=== PATIENT | female | born 1975 | race Caucasian/White ===

== ENCOUNTER 2019-09-29 00:49 | Inpatient (IN) | payer OTHER, SELFPAY ==
[2019-09-29] VITALS (49 sets, daily range): BP systolic 74–128; BP diastolic 56–98; PULSE 82–123; RESP 14–26; TEMP 36.1–37.2; O2SAT 93–100; BMI 21.0
--- NOTE | ~2019-09-29 | XR_ITS ---
EXAMINATION: XR chest ET placement DATE: 09/29/2019 05:59 INDICATION: Endotracheal tube placement. Central line placement TECHNIQUE: frontal view of the chest was obtained. COMPARISON: Chest radiograph dated 11/03/2012 FINDINGS: Endotracheal tube tip at the kota. Per discussion with Dr. Garcia this has already been pulled chris k. Nasogastric tube proximal side port in the proximal body of the stomach and with distal tip collim ated off the study. Right internal jugular central venous catheter with distal tip near the superior cavoatrial junction. Lungs are clear. No focal airspace opacity, pulmonary edema, pleural effusion or pneumothorax. The ca rdiomediastinal silhouette is normal. Visualized bones and soft tissues are unremarkable. IMPRESSION: 1. No acute cardiopulmonary disease. 2. Endotracheal tube at the kota which has already been repositioned. Reviewed, dictated and finalized at location A.
--- NOTE | ~2019-09-29 | CT_ITS ---
EXAMINATION: CT brain wo con DATE: 09/29/2019 09:40 INDICATION: Altered mental status. Overdose. TECHNIQUE: Computed tomography (CT) of the head was performed without intravenous contrast. The mA wa s adjusted according to patient size. Iterative reconstruction technique was employed. Exam dose: 60 5.33 mGy-cm total exam DLP. COMPARISON: None FINDINGS: No intracranial mass lesion or hemorrhage or cerebrovascular accident. Normal cabral-white ma tter differentiation. Normal ventricular size. No subdural or epidural hematoma. No fracture or bone destruction of the cranial vault. IMPRESSION: Negative Reviewed, dictated and finalized at Location A. Reviewed, dictated and finalized at location A. IMPRESSION: Negative
--- NOTE | 2019-09-29 00:54 | ECG_ITS ---
Measurements Intervals [place] Rate: 100 P: AL: 0 QRS: 18 QRSD: 99 T: 69 QT: 352 QTc: 455 Interpretive Statements SINUS TACHYCARDIA INCOMPLETE RIGHT BUNDLE BRANCH BLOCK BORDERLINE ECG Electronically Signed On 09-29-2019 7:52:10 CDT by Jimmy Garcia D.O.
--- NOTE | 2019-09-29 02:24 | PC.NURSE ---
poison control contacted at this time, stated that they were aware of patient and would fax information over.
[2019-09-29 02:50] LABS: Basophils Percent Auto 0.5 % (0.2-1.2); Eosinophils Absolute Auto 0.1 K/mm3 (0-0.3); Eosinophils Percent Auto 0.9 % (0-4.4); Hematocrit 36.6 % (37.0-47.0); Hemoglobin 12.8 g/dL (12.0-15.0); Immature Granulocyte Absolute 0.02 K/mm3 (0.00-0.031); Immature Granulocyte Percent A 0.2 % (0-0.5); Lymphocytes Absolute Auto 2.75 K/mm3 (0.9-3.2); Lymphocytes Percent Auto 33.8 % (18.3-44.2); Mean Corpuscular Hemoglobin 32.7 pg (26-34); Mean Corpuscular Volume 93.6 fl (80-100); Mean Platelet Volume 8.8 fl (7.4-10.4); Monocytes Absolute Auto 0.4 K/mm3 (0.1-0.6); Monocytes Percent Auto 5.4 % (2.6-8.5); Neutrophils Absolute Auto 4.8 K/mm3 (1.3-6.7); Neutrophils Percent Auto 59.2 % (45.5-73.1); Platelet Count Result 371 k/mm3 (150-375); Red Blood Count 3.91 M/mm3 (4.2-5.4); White Blood Count 8.1 K/mm3 (4.5-10.0)
[2019-09-29] MEDS: SODIUM CHLORIDE 0.9% IV 1,000 ML 999 ML IV CONT ×2 (03:25→09:58)
--- NOTE | 2019-09-29 03:31 | PC.NURSE ---
pt very drowsy at this time edp notified.
[2019-09-29 03:40] LABS: Add Urine Microscopic? YES; Appearance Urine Clear (Clear); Bilirubin Urine Negative (Negative); Blood Urine 1+ (Negative); Color Urine Yellow (Yellow); Glucose Urine UA Negative (Negative); Ketones Urine Negative (Negative); Leukocyte Esterase Ur Negative LEU/UL (Negative); Mucus Urine Rare /lpf; Nitrate Urine Negative (Negative); Protein Urine Negative (Negative); RBC Urine 0-2 /hpf (0-2); Squamous Epithelial Cell Urine Occasional /hpf (Few); Urobilinogen Urine Negative mg/dL (<2.0); WBC Urine 0-3 /hpf
--- NOTE | 2019-09-29 04:38 | PC.NURSE ---
pt extremely lethargic at this time, slow to respond. pt bp 74/58.
--- NOTE | 2019-09-29 04:39 | PC.NURSE ---
pt responsive to painful stimuli.
[2019-09-29 04:40] LABS: Amphetamine Screen Urine Negative (Negative); Barbiturate Screen Urine Negative (Negative); Benzodiazepines Screen Urine Negative (Negative); Cannabinoid Screen Urine Negative (Negative); Cocaine Screen Urine Negative (Negative); Methadone Screen Urine Negative (Negative); Opiate Screen Urine Negative (Negative); Phencyclidine Screen Urine Negative (Negative)
[2019-09-29 04:47] LABS: Ethanol 336 mg/dL (<10)
[2019-09-29 04:48] LABS: Acetaminophen < 10 ug/mL (10-30); Salicylate < 1.0 mg/dL (2-20)
--- NOTE | 2019-09-29 04:48 | PC.NURSE ---
pt having seizure at this time, edp present. 1000mg of keppra ordered at this time.
[2019-09-29 04:49] LABS: Alanine Aminotransferase 23 U/L (4-35); Albumin Level 4.4 g/dL (3.5-5.1); Alkaline Phosphatase 59 U/L (38-126); Aspartate Amino Transferase 36 U/L (14-36); Bilirubin,Total 0.2 mg/dL (0.2-1.3); Blood Urea Nitrogen 5 mg/dL (7-17); Calcium 8.6 mg/dL (8.4-10.2); Carbon Dioxide 27 mmol/L (22-30); Chloride 108 mmol/L (98-107); Estimated CRCL calculation 90 ml/min; Estimated Glomerular Filt Rate > 60; Glucose 109 mg/dL (65-105); Potassium 3.7 mmol/L (3.4-5.0); Sodium 143 mmol/L (137-145); Thyroid Stimulating Hormone 0.653 uIU/mL (0.465-4.680)
--- NOTE | 2019-09-29 05:00 | PC.NURSE ---
PT BECOMING HYPOXIC IN ROOM WHILE SEIZING. EDP TO INTUBATE.
--- NOTE | 2019-09-29 05:03 | PC.NURSE ---
EDP IN ROOM TO INTUBATE PATIENT.
--- NOTE | 2019-09-29 05:05 | PC.NURSE ---
PT GIVEN 50MG OF ROCURONIUM AT THIS TIME PER EDP MARIANA'S ORDERS.
--- NOTE | 2019-09-29 05:05 | PC.NURSE ---
PT INTUBATED WITH 7.5 ET TUBE 27 AT THE TEETH.
[2019-09-29] MEDS: levETIRAcetam 1000MG/NACL100ML 1,000 MG/100 ML BAG 400 MG IVPB (05:15)
[2019-09-29 05:22] LABS: Base Excess ABG 4.5 mEq/l (+/-2.0); Oxygen Saturation ABG 99.9 % (95.0-100.0); Total Hemoglobin 11.3 g/dL (12.0-18.0)
[2019-09-29 05:23] LABS: Carboxyhemoglobin 2.2 % THb (0-2.0); Oxygen Content ABG 16.9 %vol (16.0-22.0)
[2019-09-29 05:24] LABS: Methemoglobin ABG 0.4 %THb (0-1.5)
[2019-09-29 05:26] LABS: Device NON-REBREATHER MASK; Fractional Inspired Oxygen 100 %; Modified Allen's Test Unable to perform; PO2 FiO2 Ratio Arterial Blood 5.51 %; Site Drawn RIGHT RADIAL
--- NOTE | 2019-09-29 05:26 | ECG_ITS ---
Measurements Intervals [place] Rate: 93 P: 77 TN: 165 QRS: 15 QRSD: 114 T: 72 QT: 408 QTc: 508 Interpretive Statements SINUS RHYTHM INCOMPLETE RIGHT BUNDLE BRANCH BLOCK DELAYED PRECORDIAL R/S TRANSITION BORDERLINE ECG Electronically Signed On 09-29-2019 7:59:50 CDT by Jimmy Garcia D.O.
[2019-09-29] MEDS: NOREPINEPHRINE 8 MG/D5W 250 ML 8 MG/250 ML BAG 9.4 MG IV CONT (05:30)
--- NOTE | 2019-09-29 05:38 | PC.NURSE ---
PT STARTED ON PROPOFOL @ 5MCG/KG/MIN PER EDP MARIANA ORDERS.
--- NOTE | 2019-09-29 05:53 | PM.IMHP ---
H&P: HPI History of Present Illness Chief complaint: wellbutrin overdose/ativan overdose/alcohol intoxi Narrative: This is a 44 year old female who presented to the hospital tonight after intentionally overdosing on approximately 6 grams of wellbutrin and 15 mg of Ativan according to ER provider. The patient had been fighting with her earlier this evening and did drink alcohol before intentionally overdosing. Apparently she verbalized to her that she wanted to end her life. In the ER tonight the patient has become obtunded and poorly responsive. She was found to be hypotensive and was given a fluid bolus. She began to exhibit seizure like activity and was treated with IV Keppra. The patient's respiratory function deteriorated and she was emergently intubated in the ER. A central line was placed in the ER as the patient continued to be hypotensive. She was started on IV Levophed for her hypotension. Poison control has been consulted by ER provider. Landscape Foreman has been consulted by ER provider. Review of Systems Review of Systems: ROS unobtainable: Yes unobtainable due to medical condition and unobtainable due to mental status [facility] Family History Family History Other Family history of pancreatic cancer Social History Social History Smoking status: Current every day smoker Smoking end date: 03/15/11 Alcohol intake: current Drinks per week: 6 Substance use: unknown Gender identity (if verbalized by the patient): Female Spiritual care concerns: No Comments Past medical/surgical/family/social history is not obtainable from the patient due to her comatose state. Meds Home Medications and Allergies Home Medications Medication Instructions Recorded Confirmed Type albuterol sulfate 2 puff INHALATION Q6H PRN 09/29/19 09/29/19 History bupropion HCl 300 mg PO DAILY 09/29/19 09/29/19 History lorazepam 0.5 mg PO Q8H PRN 09/29/19 09/29/19 History nystatin 5 ml PO QID 09/29/19 09/29/19 History vilazodone [Viibryd] 40 mg PO DAILY 09/29/19 09/29/19 History Allergies Allergy/AdvReac Type Severity Reaction Status Date / Time No Known Allergies Allergy Mild Verified 10/17/07 07:46 Vital Signs Vital Signs - 24 hr 09/29/19 00:49 09/29/19 03:04 09/29/19 03:05 Temperature 36.8 C Pulse Rate 113 H 113 H Respiratory Rate 15 18 19 Blood Pressure 123/98 H 111/83 Pulse Oximetry 100 100 09/29/19 04:01 09/29/19 04:40 09/29/19 05:14 Temperature Pulse Rate 115 H 91 110 H Respiratory Rate 24 H 16 15 Blood Pressure 97/68 L 74/58 L 91/68 L Pulse Oximetry 97 94 97 Exam Const: General: other (Obtunded, Comatose, Unresponsive to pain+); No alert or awake Orientation/consciousness: patient obtunded HENMT: Head: normal to inspection General nose exam: Normal external nose present Face and sinus: normal facial exam Mouth: Yes Normal oral and palatal mucosa present and Yes oropharynx normal Eyes: Pupils: Other pupil findings (pupils are sluggishly reactive+ ) Neck: Neck: supple and no JVD Thyroid: thyroid normal Lymphatic: lymphadenopathy not noted Resp: Effort & Inspection: other (Slow, shallow breathing+ ) Auscultation: wheezes lower bilaterally Cardio: Rate: regular rate Rhythm: regular rhythm Heart sounds: no murmurs GI: Inspection: normal to inspection Auscultation: normal bowel sounds Skin: General skin exam: normal color and no rashes or lesions noted Neuro: General: patient obtunded and other (Unresponsive to pain. ) Extrem: General: normal to inspection and no edema H&P: Results Labs Labs: Short CBC 09/29/19 Range/Units 01:00 WBC 8.1 (4.5-10.0) K/mm3 Hgb 12.8 (12.0-15.0) g/dL Hct 36.6 L (37.0-47.0) % Plt Count 371 (150-375) k/mm3 [facility] 09/29/19 01:00 Sodium 143 Potassium 3.7 Chloride 108 H Carbon Dioxide 27 BUN 5 L
--- NOTE | 2019-09-29 05:59 | PC.NURSE ---
levophed started at 10mcg/min er edp orders.
--- NOTE | 2019-09-29 06:10 | PC.NURSE ---
pt family member called requesting information, told pts family i could not give any information about patient, she then stated fuck you and continued repeating it.
[2019-09-29] MEDS: PROPOFOL IV EMULSION 100 ML 5 MG (06:26)
--- NOTE | 2019-09-29 08:33 | ADMGEN ---
This patient, Micaela Worthy, was admitted to Intensive Care Unit-5. Patient/family oriented to hospital policies and general routines including ID bracelet, bed and alarms, visiting hours, pain management, procedures, bathroom and other care routines, personal items, smoking policy, room service/diet, and visiting hours. Valuables list has been completed. Information on how to activate the Rapid Response Team has been discussed. Patient/Family are encouraged to report perceived risks to care and to ask questions if they do not understand what they are told or what they should do.
[2019-09-29 08:59] LABS: Base Excess ABG -5.2 mEq/l (+/-2.0); HCO3 ABG 21.2 mEq/l (22.0-26.0); Oxygen Saturation ABG 99.5 % (95.0-100.0); PCO2 ABG 44.7 mmHg (35.0-45.0); PO2 ABG 253.9 mmHg (80.0-100.0); Total Hemoglobin 13.3 g/dL (12.0-18.0); pH ABG 7.294 (7.350-7.450)
[2019-09-29 09:00] LABS: Alveolar/Arterial O2 Gradient 124.7 mmHg; Arterial Blood Gas PEEP 5 cmH2O; Arterial Blood Gas Tidal Volume 400 ml; Arterial Blood Gas Vent Mode CMV; Arterial Blood Gas Ventilator rate 18 /MIN; Device VENTILATOR; Fractional Inspired Oxygen 60 %; Modified Allen's Test Pass; Oxygen Content ABG 18.9 %vol (16.0-22.0); Oxyhemoglobin 97.7 % THb (90.0-100.0); PO2 FiO2 Ratio Arterial Blood 4.23 %; Site Drawn LEFT RADIAL
--- NOTE | 2019-09-29 09:21 | WPDCNINT ---
Assessment and Plan Assessment and plan (1) Poisoning by bupropion: Code(s): T43.291A - Poisoning by other antidepressants, accidental (unintentional), initial encounter Status: Acute Assessment and Plan: Leading to seizures hypotension and and myoclonic jerking Dilated fixed pupils could be a manifestation of severe bupropion toxicity Check CT head Serial EKGs IV fluids with bicarb Check EEG and head CT Spoke to Dr. Mosher at [facility] ICU for transfer for continuous EEG monitoring and MRI while on ventilator. The have accepted the patient and neurologist is agreeable to consult and initiate continues EEG. Accepting physician is Dr. Zavala Await bed at this point (2) Alcohol intoxication: Qualifiers: Complication of substance-induced condition: with unspecified complication Qualified Code(s): F10.929 - Alcohol use, unspecified with intoxication, unspecified Code(s): F10.929 - Alcohol use, unspecified with intoxication, unspecified Status: Acute Assessment and Plan: IV fluid bolus and infusion Thiamine and folic acid (3) Seizure: Code(s): R56.9 - Unspecified convulsions Status: Acute Assessment and Plan: Secondary to Wellbutrin overdose Patient on propofol sedation. I will add Versed infusion EEG head CT ordered (4) Acute respiratory failure: Qualifiers: Respiratory failure complication: unspecified whether with hypoxia or hypercapnia Qualified Code(s): J96.00 - Acute respiratory failure, unspecified whether with hypoxia or hypercapnia Code(s): J96.00 - Acute respiratory failure, unspecified whether with hypoxia or hypercapnia Status: Acute Assessment and Plan: Chest x-ray and ABG reviewed Increased respiratory rate to 22 (5) Hypotension: Code(s): I95.9 - Hypotension, unspecified Status: Acute Assessment and Plan: Likely secondary to drug overdose and seizures Patient received 3 L saline bolus Continue IV fluid with bicarb Levophed for hemodynamic support Check lactic acid level Additional Plan DVT prophylaxis -Lovenox once head CT is negative Stress ulcer prophylaxis -Protonix Nutrition - NPO Code Status - Full Code Total Critical Care Time - 45 minutes Due to a high probability of clinically significant, life threatening deterioration, the patient required my highest level of preparedness to intervene emergently and I personally spent this critical care time directly and personally managing the patient. This critical care time included obtaining a history; examining the patient; pulse oximetry; ordering and review of studies; arranging urgent treatment with development of a management plan; evaluation of patient's response to treatment; frequent reassessment; and discussions with other providers. It was exclusive of separately billable procedures and treating other patients and teaching time. Please see Assessment and Plan section and the rest of the note for further information on patient assessment and treatment [facility] Consult Note Consult date: 09/29/19 Time Seen: 09:00 HPI: Micaela Worthy is a 44 year old female with a known past medical history presented to ER last night with chief complaint of intentionally taking 6 g of Wellbutrin, 15 mg of Ativan after drinking alcohol in order to commit suicide. Initially patient was drowsy and response. Labwork was unremarkable. Patient was going to be admitted for monitoring but while in the ER patient's mental status deteriorated and she had a seizure. She was also hypertensive. She was intubated, IV fluid bolus was given, patient was started on Levophed and a central line was placed. Patient now admitted to ICU for further evaluation and management. History obtained from chart and Physician sign out. Pt intubated and sedated and unable to provide any other history. At this time patient is intubated and on propofol and Levophed. Her
[2019-09-29 09:47] LABS: Basophils Percent Auto 0.3 % (0.2-1.2); Eosinophils Percent Auto 0.1 % (0-4.4); Hemoglobin 12.2 g/dL (12.0-15.0); Immature Granulocyte Absolute 0.04 K/mm3 (0.00-0.031); Immature Granulocyte Percent A 0.4 % (0-0.5); Lymphocytes Absolute Auto 0.87 K/mm3 (0.9-3.2); Lymphocytes Percent Auto 8.9 % (18.3-44.2); Mean Corpuscular HGB Conc 33.9 g/dl (32-36); Mean Corpuscular Hemoglobin 32.7 pg (26-34); Mean Corpuscular Volume 96.5 fl (80-100); Monocytes Absolute Auto 0.6 K/mm3 (0.1-0.6); Monocytes Percent Auto 6.2 % (2.6-8.5); Neutrophils Absolute Auto 8.2 K/mm3 (1.3-6.7); Neutrophils Percent Auto 84.1 % (45.5-73.1); Platelet Count Result 382 k/mm3 (150-375); Red Blood Count 3.73 M/mm3 (4.2-5.4); Red Cell Distribution Width 13.3 % (11.5-14.5); White Blood Count 9.8 K/mm3 (4.5-10.0)
[2019-09-29 09:55] LABS: Lactic Acid 2.2 mmol/L (0.7-2.1)
[2019-09-29 09:56] LABS: Alanine Aminotransferase 27 U/L (4-35); Albumin Level 3.9 g/dL (3.5-5.1); Alkaline Phosphatase 56 U/L (38-126); Aspartate Amino Transferase 48 U/L (14-36); Bilirubin,Total 0.1 mg/dL (0.2-1.3); Blood Urea Nitrogen 4 mg/dL (7-17); Calcium 6.6 mg/dL (8.4-10.2); Carbon Dioxide 24 mmol/L (22-30); Chloride 109 mmol/L (98-107); Estimated CRCL calculation 106 ml/min; Estimated Glomerular Filt Rate > 60; Glucose 129 mg/dL (65-105); Magnesium 1.6 mg/dL (1.6-2.3); Potassium 3.7 mmol/L (3.4-5.0); Sodium 141 mmol/L (137-145)
[2019-09-29] MEDS: levETIRAcetam 500MG/NACL 100ML 500 MG/100 ML BAG 400 MG IVPB ×2 (09:57→20:09)
--- NOTE | 2019-09-29 10:00 | ECG_ITS ---
Measurements Intervals [place] Rate: 114 P: 84 AR: 159 QRS: 25 QRSD: 112 T: 70 QT: 353 QTc: 487 Interpretive Statements SINUS TACHYCARDIA INCOMPLETE RIGHT BUNDLE BRANCH BLOCK BASELINE ARTIFACT- V1-V2 ABNORMAL ECG Electronically Signed On 09-29-2019 11:11:33 CDT by Jimmy Garcia D.O.
[2019-09-29] MEDS: THIAMINE HCL 200 MG/2 ML VIAL 100 MG IV PUSH (10:02)
[2019-09-29] MEDS: ENOXAPARIN 40 MG/0.4 ML SYRINGE SUB-Q (10:03)
[2019-09-29] MEDS: PANTOPRAZOLE SODIUM IV 40 MG VIAL IV PUSH (10:03)
[2019-09-29] MEDS: SODIUM BICARBONATE 8.4% 150 MEQ in DEXTROSE 5% 1,000 ML 950 ML 100 MEQ IV CONT ×2 (10:07→21:29)
[2019-09-29] MEDS: MAGNESIUM SULF 2 GM/WATER 50ML 2 GM/50 ML BAG IVPB (10:40)
[2019-09-29 11:00] LABS: Glucose Point of Care 135 (65-105)
[2019-09-29] MEDS: POTASSIUM CHLORIDE 20 MEQ PACKET (FOR LIQUID) 40 MEQ PO (11:07)
--- NOTE | 2019-09-29 12:03 | PM.EVENT ---
Event Note Event Note Event Note: Spoke to patient's roxanne Worthy by phone. I updated him with patient's current status, events since arrival to ED, seizures hypertension and myoclonic jerking from Wellbutrin overdose. He is agreeable to transfer to OSH/[facility] for continuous EEG monitoring. He told me that patient is on antidepressant medications and has been drinking heavily for last 1 month. She has been drinking daily but mostly drinks beer and wine but lately has been drinking vodka. Last night she started drinking whiskey which was concerning to him. He stated that he kept on asking her if she took any other pills but she denied. He discovered that pills from her Wellbutrin and Ativan bottle were missing which made him call poison control and then eventually bring patient to ER. He told me that patient smokes daily and also has asthma.
--- NOTE | 2019-09-29 12:05 | PC.NURSE ---
Spoke to poison control at 1200, told all labs including ABG, mag, potassium, bicarb. Told them patient got 2 mag rider, 40 of potassium, and on a bicarb drip. Told poison control the QT and QRS on most recent EKG I obtained, was told to watch for torsades. Told poison control that patient will be transferred to [facility] for continuous EEG monitoring.
[2019-09-29] MEDS: PROPOFOL IV EMULSION 100 ML 10 MG IV CONT ×2 (12:28→23:23)
[2019-09-29] MEDS: FOLIC ACID 1 MG/0.2 ML INJ IV PUSH (13:07)
[2019-09-29 13:38] LABS: Glucose Point of Care 158 (65-105)
--- NOTE | 2019-09-29 14:00 | ECG_ITS ---
Measurements Intervals [place] Rate: 96 P: 82 AL: 177 QRS: 8 QRSD: 117 T: 69 QT: 429 QTc: 545 Interpretive Statements SINUS RHYTHM POSSIBLE LEFT ATRIAL ENLARGEMENT INCOMPLETE RIGHT BUNDLE BRANCH BLOCK PROLONGED QT INTERVAL ABNORMAL ECG Electronically Signed On 09-30-2019 7:43:33 CDT by Jimmy Garcia D.O.
[2019-09-29 14:35] LABS: SARS-CoV-2 RNA PCR Negative
--- NOTE | 2019-09-29 15:47 | PC.NURSE ---
[facility] access center updated with the patient's COVID results.
--- NOTE | 2019-09-29 16:50 | WPDNEURCNPN ---
Assessment and Plan Assessment and plan (1) Poisoning by bupropion: Code(s): T43.291A - Poisoning by other antidepressants, accidental (unintentional), initial encounter Status: Acute (2) Hypotension: Code(s): I95.9 - Hypotension, unspecified Status: Acute (3) Suicidal ideation: Code(s): R45.851 - Suicidal ideations Status: Acute (4) Alcohol intoxication: Qualifiers: Complication of substance-induced condition: with unspecified complication Qualified Code(s): F10.929 - Alcohol use, unspecified with intoxication, unspecified Code(s): F10.929 - Alcohol use, unspecified with intoxication, unspecified Status: Acute (5) Seizure: Code(s): R56.9 - Unspecified convulsions Status: Acute (6) Intentional overdose of drug in tablet form: Code(s): T50.902A - Poisoning by unspecified drugs, medicaments and biological substances, intentional self-harm, initial encounter Status: Acute (7) Acute respiratory failure: Qualifiers: Respiratory failure complication: unspecified whether with hypoxia or hypercapnia Qualified Code(s): J96.00 - Acute respiratory failure, unspecified whether with hypoxia or hypercapnia Code(s): J96.00 - Acute respiratory failure, unspecified whether with hypoxia or hypercapnia Status: Acute Additional Plan appropriate management is done by the supervisor volunteer services here in the ICU the patient is going to be transferred to [facility] and she has been accepted there further management and evaluation there Consult date: 09/29/19 Time Seen: 16:00 HPI: Micaela Worthy is a 44 year old female who is intubated and heavily sedated and only response to deep pain she has already been accepted at [facility] for further management and also have a repeat neuro imaging by MRI of the brain The patient historically overdosed with Wellbutrin and Ativan and superimposed with drinking the rest of the history was reviewed and concurred Review of Systems Review of Systems: ROS unobtainable: Yes unobtainable due to endotracheal tube PMFSH Family History Family History Other Family history of pancreatic cancer Social History Social History Smoking status: Current every day smoker Smoking end date: 03/15/11 Alcohol intake: current Drinks per week: 6 Substance use: unknown Gender identity (if verbalized by the patient): Female Spiritual care concerns: No Meds Home Medications and Allergies Home Medications Medication Instructions Recorded Confirmed Type albuterol sulfate 2 puff INHALATION Q6H PRN 09/29/19 09/29/19 History bupropion HCl 300 mg PO DAILY 09/29/19 09/29/19 History lorazepam 0.5 mg PO Q8H PRN 09/29/19 09/29/19 History nystatin 5 ml PO QID 09/29/19 09/29/19 History vilazodone [Viibryd] 40 mg PO DAILY 09/29/19 09/29/19 History Allergies Allergy/AdvReac Type Severity Reaction Status Date / Time No Known Allergies Allergy Mild Verified 10/17/07 07:46 Vital Signs Vital Signs - 24 hr 09/29/19 00:49 09/29/19 03:04 09/29/19 03:05 Temperature 36.8 C Pulse Rate 113 H 113 H Respiratory Rate 15 18 19 Blood Pressure 123/98 H 111/83 Pulse Oximetry 100 100 09/29/19 04:01 09/29/19 04:40 09/29/19 04:56 Temperature Pulse Rate 115 H 91 Respiratory Rate 24 H 16 Blood Pressure 97/68 L 74/58 L Pulse Oximetry 97 94 93 09/29/19 05:10 09/29/19 05:14 09/29/19 05:30 Temperature Pulse Rate 110 H 115 H Respiratory Rate 15 Blood Pressure 91/68 L 79/56 L Pulse Oximetry 95 97 09/29/19 06:00 09/29/19 06:26 09/29/19 06:37 Temperature Pulse Rate 107 H 115 H 115 H Respiratory Rate 19 16 14 Blood Pressure 121/90 124/90 122/89 Pulse Oximetry 100 100 100 09/29/19 06:45 09/29/19 07:01 09/29/19 07:14 Temperature Pulse Rate 115
--- NOTE | 2019-09-29 18:23 | PM.IMPN ---
Progress Note: A&P Assessment and Plan (1) Acute respiratory failure: Qualifiers: Respiratory failure complication: unspecified whether with hypoxia or hypercapnia Qualified Code(s): J96.00 - Acute respiratory failure, unspecified whether with hypoxia or hypercapnia Code(s): J96.00 - Acute respiratory failure, unspecified whether with hypoxia or hypercapnia Status: Acute Assessment and Plan: continue ventilatory support and wean of as tolerated. We will continue to sedate the patient (2) Intentional overdose of drug in tablet form: Code(s): T50.902A - Poisoning by unspecified drugs, medicaments and biological substances, intentional self-harm, initial encounter Status: Acute Assessment and Plan: The patient apparently overdosed on Wellbutrin and Lorazepam. Poison control has been consulted. Check another EKG and monitor QRS and QT intervals. And with ongoing seizures will transfer to tertiary care for continuous EEG monitoring (3) Seizure: Code(s): R56.9 - Unspecified convulsions Status: Acute Assessment and Plan: The patien has been loaded with Keppra. Likely secondary to Wellbutrin overdose. And as above transfer to tertiary care for continues EEG monitoring (4) Alcohol intoxication: Qualifiers: Complication of substance-induced condition: with unspecified complication Qualified Code(s): F10.929 - Alcohol use, unspecified with intoxication, unspecified Code(s): F10.929 - Alcohol use, unspecified with intoxication, unspecified Status: Acute Assessment and Plan: [facility] protocol. Thiamine IV daily. (5) Suicidal ideation: Code(s): R45.851 - Suicidal ideations Status: Acute Assessment and Plan: 1 on 1 sitter, Harm precautions. Crisis intervention when the patient is extubated. (6) Hypotension due to drugs: Code(s): I95.2 - Hypotension due to drugs Status: Acute Assessment and Plan: Secondary to overdose. Monitor blood pressure closely. Continue Levophed for vasopressor support and wean as tolerated. Subjective Date/time seen: 09/29/19 18:23 Interval history: Date of visit 09/28. 44-year-old alcoholic with depression admitted after heavy drinking and ingestion of unknown quantity lorazepam and Wellbutrin. Became more obtunded in the emergency room had to be intubated with respiratory failure and started having seizures. Now in the ICU mechanically ventilated and still intermittently seizing. Exam Narrative: Exam Narrative: Blood pressure 100/76 on pressors saturating 100% on mechanical ventilation this FiO2 of 60% with 5 of peep afebrile Pupils are fixed and dilated ET tube in place and secured Lungs clear CV tachy regular rate rhythm Abdomen soft nontender bowel sounds normal active Extremities without edema distal pulses 1+ and symmetrical Neuro as stated pupils appear to be fixed and dilated eyes rhythmic nystagmus to the right, with ongoing seizure her myoclonic activity of both upper extremities Objective Data Vital Signs Vital Signs: Vital Signs - 24 hr 09/29/19 00:49 09/29/19 03:04 09/29/19 03:05 Temperature 36.8 C Pulse Rate 113 H 113 H Respiratory Rate 15 18 19 Blood Pressure 123/98 H 111/83 Pulse Oximetry 100 100 09/29/19 04:01 09/29/19 04:40 09/29/19 04:56 Temperature Pulse Rate 115 H 91 Respiratory Rate 24 H 16 Blood Pressure 97/68 L 74/58 L Pulse Oximetry 97 94 93 09/29/19 05:10 09/29/19 05:14 09/29/19 05:30 Temperature Pulse Rate 110 H 115 H Respiratory Rate 15 Blood Pressure 91/68 L 79/56 L Pulse Oximetry 95 97 09/29/19 06:00 09/29/19 06:26 09/29/19 06:37 Temperature Pulse Rate 107 H 115 H 115 H Respiratory Rate 19 16 14 Blood Pressure 121/90 124/90 122/89 Pulse Oximetry 100 100 100 09/29/19 06:45 09/29/19 07:01 09/29/19 07:14 Temperature Pulse Rate 115 H 117 H 118 H Respiratory Rate 14 14 14 Blood Press
[2019-09-29 18:31] LABS: Glucose Point of Care 142 (65-105)
--- NOTE | 2019-09-29 22:00 | ECG_ITS ---
Measurements Intervals [place] Rate: 92 P: 78 [place]: 174 QRS: -1 QRSD: 116 T: 69 QT: 446 QTc: 554 Interpretive Statements SINUS RHYTHM POSSIBLE LEFT ATRIAL ENLARGEMENT INCOMPLETE RIGHT BUNDLE BRANCH BLOCK BORDERLINE ECG Electronically Signed On 09-30-2019 10:56:30 CDT by Jimmy Garcia D.O.
[2019-09-29 23:49] LABS: Glucose Point of Care 132 (65-105)
[2019-09-30] VITALS: PULSE 100
[2019-09-30 01:01] VITALS: TEMP 36.2
--- NOTE | 2019-10-06 09:15 | PM.TDS ---
Transfer Discharge Sum: Prov Provider Date of admission: 09/29/19 04:54 Primary care physician: Shelton Hawkins, DO Admitting clinician: Evgeny Townsend MD Consults: 09/29/19 04:56 Consult to Physician Routine Comment: Consulting Provider: Justin Davenport at home independent call center agent/MD group to consult: Dr. Davenport Reason for consultation: Overdose of ativan and wellbutrin, alcohol intoxication, SI Has provider been notified: Yes 09/29/19 06:40 Consult to Physician Routine Comment: SPOKE WITH DR. HOLT Consulting Provider: Pro Holt at home independent call center agent/MD group to consult: Neurology Reason for consultation: Seizures Has provider been notified: Yes patient was admitted with acute alcohol intoxication ETOH level greater than 300 and overdose of unknown quanity wellbutrin and clonazepam. With continued seizure activity is felt that she need continual EEG monitoring and was transferred to tertiary care for further treatment. DS: Admitting Diagnosis Admitting Diagnosis Admitting Diagnosis: Poisoning by other antidepressants, accidental (unintentional), initial encounter DS: Discharge Diagnosis Discharge Diagnosis (1) Acute respiratory failure: Qualifiers: Respiratory failure complication: unspecified whether with hypoxia or hypercapnia Qualified Code(s): J96.00 - Acute respiratory failure, unspecified whether with hypoxia or hypercapnia Code(s): J96.00 - Acute respiratory failure, unspecified whether with hypoxia or hypercapnia Status: Acute Assessment and Plan: continued ventilatory support and wean of as tolerated continued to sedate the patient (2) Intentional overdose of drug in tablet form: Code(s): T50.902A - Poisoning by unspecified drugs, medicaments and biological substances, intentional self-harm, initial encounter Status: Acute Assessment and Plan: The patient apparently overdosed on Wellbutrin and Lorazepam. Poison control has been consulted. Check another EKG and monitor QRS and QT intervals. And with ongoing seizures transfered to tertiary care for continuous EEG monitoring, STL U (3) Seizure: Code(s): R56.9 - Unspecified convulsions Status: Acute Assessment and Plan: The patien was loaded with Keppra. Likely secondary to Wellbutrin overdose. And as above transfered to tertiary care for continues EEG monitoring (4) Alcohol intoxication: Qualifiers: Complication of substance-induced condition: with unspecified complication Qualified Code(s): F10.929 - Alcohol use, unspecified with intoxication, unspecified Code(s): F10.929 - Alcohol use, unspecified with intoxication, unspecified Status: Acute Assessment and Plan: CIWA-[place] protocol. Thiamine IV daily. (5) Suicidal ideation: Code(s): R45.851 - Suicidal ideations Status: Acute Assessment and Plan: 1 on 1 sitter, Harm precautions. Crisis intervention when the patient is extubated. (6) Hypotension due to drugs: Code(s): I95.2 - Hypotension due to drugs Status: Acute Assessment and Plan: Secondary to overdose. Monitor blood pressure closely. Continue Levophed for vasopressor support and wean as tolerated. Transfer Discharge Sum: Med Medications Active and Home Medications: Home Medications albuterol sulfate 2 puff INHALATION Q6H PRN 09/29/19 [History Confirmed 09/29/19] bupropion HCl 300 mg PO DAILY 09/29/19 [History Confirmed 09/29/19] lorazepam 0.5 mg PO Q8H PRN 09/29/19 [History Confirmed 09/29/19] nystatin 5 ml PO QID 09/29/19 [History Confirmed 09/29/19] vilazodone [Viibryd] 40 mg PO DAILY 09/29/19 [History Confirmed 09/29/19] Transfer Discharge Sum: Hosp Hospital Course Hospital course: Micaela Worthy is a 44 year old female Time Spent with Patient Time attestation: Total time spent providing and/or coordinating transfer services:
== END 2019-09-30 01:52 | disposition short-term general hospital (02) | DRG 917 ==
LOC: ANHED 05:03 → ANHICU 08:21
PROVIDERS: Internal Medicine; Admitting Provider Family Medicine; Emergency Provider Emergency Medicine; PCP Student in an Organized Health Care Education/Training Program; Visit Provider Internal Medicine
DX: T43.292A Poisoning by other antidepressants, intentional self-harm, initial encounter (principal); J96.00 Acute respiratory failure, unspecified whether with hypoxia or hypercapnia; Y92.009 Unspecified place in unspecified non-institutional (private) residence as the place of occurrence of the external cause; R56.9 Unspecified convulsions; F10.929 Alcohol use, unspecified with intoxication, unspecified; I95.2 Hypotension due to drugs; S05.02XA Injury of conjunctiva and corneal abrasion without foreign body, left eye, initial encounter; F17.210 Nicotine dependence, cigarettes, uncomplicated; Z11.59 Encounter for screening for other viral diseases
CPT/HCPCS: 36415; 36600; 70450; 80053; 80307; 81001; 81025; 82375; 82805; 83050; 83605; 83735; 84443; 85025; 87077; 87086; 87088; 87186; 87635; 93005; 94003; 96360; 99285; A9270; C1751; C9113; C9803; J1650; J1953; J2250; J2704; J3411; J3475; J7030; J7060; J7070; U0003

== ENCOUNTER 2020-12-03 19:30 | Emergency (ER) | payer OTHER, SELFPAY ==
--- NOTE | 2020-12-03 19:40 | ECG_ITS ---
Measurements Intervals [place] Rate: 92 P: 81 NM: 196 QRS: -12 QRSD: 105 T: 58 QT: 363 QTc: 450 Interpretive Statements SINUS RHYTHM BORDERLINE AV CONDUCTION DELAY INCOMPLETE RIGHT BUNDLE BRANCH BLOCK DELAYED PRECORDIAL R/S TRANSITION BASELINE ARTIFACT- I, II, AVR, AVL BORDERLINE ECG Electronically Signed On 12-03-2020 20:23:30 CDT by Jimmy Garcia D.O.
[2020-12-03 19:52] VITALS: BP 129/94; PULSE 99; RESP 16; TEMP 37; O2SAT 99
--- NOTE | 2020-12-03 19:58 | ED.GENADULT ---
HPI - General Adult General Chief complaint: Psychiatric Symptoms <Mac Nnio MD - Last Filed: 12/03/20 19:59> Stated complaint: overdose, SI <Mac Nino MD - Last Filed: 12/03/20 19:59> Time Seen by Provider: 12/03/20 19:35 <Mac Nino MD - Last Filed: 12/03/20 19:59> History of Present Illness HPI narrative: Patient is a 45-year-old female presents emergency department with chief complaint of overdose. Patient reports she has been very depressed lately and states she took an unknown number of Xanax lithium Adderall and was unable to provide exact numbers of medications and states she took this approximately 30 minutes to an hour prior to arrival in the emergency department <Mac Nino MD - Last Filed: 12/03/20 19:59> Related Data Home medications: Home Medications Medication Instructions Recorded Confirmed albuterol sulfate 2 puff INHALATION Q6H PRN 09/29/19 09/29/19 bupropion HCl 300 mg PO DAILY 09/29/19 09/29/19 lorazepam 0.5 mg PO Q8H PRN 09/29/19 09/29/19 nystatin 5 ml PO QID 09/29/19 09/29/19 vilazodone [Viibryd] 40 mg PO DAILY 09/29/19 09/29/19 <Mac Nino MD - Last Filed: 12/03/20 19:59> Allergies/adverse reactions: Allergies Allergy/AdvReac Type Severity Reaction Status Date / Time No Known Allergies Allergy Mild Verified 10/17/07 07:46 <Mac Nino MD - Last Filed: 12/03/20 19:59> Review of Systems Review of Systems: A 10 system review of systems was completed on the patient and is negative except for what is stated in the HPI. Nursing and ancillary documentation was reviewed. <Mac Nino MD - Last Filed: 12/03/20 19:59> PMF Family History Family History: Family History Other Family history of pancreatic cancer <Mac Nino MD - Last Filed: 12/03/20 19:59> Social History Social History: Social History Smoking status: Current every day smoker Smoking end date: 03/15/11 Alcohol intake: current Drinks per week: 6 Substance use: unknown Substance use type: other Gender identity (if verbalized by the patient): Female Spiritual care concerns: No <Mac Nino MD - Last Filed: 12/03/20 19:59> Exam Narrative: GENERAL: Well-appearing, well-nourished, and in no acute distress. HEAD: Normocephalic, atraumatic. EYES: PERRLA and EOMI. ENT: Nares clear, no rhinorrhea or epistaxis. Mucous membranes moist. NECK: Supple. CHEST: Clear to auscultation. No respiratory distress. HEART: Regular rate and rhythm. No murmur heard. Normal peripheral pulses. ABDOMEN: Soft, nontender, nondistended, normal active bowel sounds. EXTREMITIES: Normal range of motion. No edema. SKIN: Warm, dry, no rash. NEURO: No focal deficits. Alert and oriented x3. PSYCH: Depressed mood and affect. <Mac Nino MD - Last Filed: 12/03/20 19:59> Course Course Emergency Course: At 7 AM patient is medically cleared for psych evaluation and treatment <Suleman Estrada MD - Last Filed: 12/04/20 06:59> Vital Signs Vital signs: Vital Signs Temperature 37.0 C 12/03/20 19:52 Pulse Rate 99 12/03/20 19:52 Respiratory Rate 16 12/03/20 19:52 Blood Pressure 129/94 H 12/03/20 19:52 Pulse Oximetry 99 12/03/20 19:52 Temperature 37.0 C 12/03/20 19:52 Pulse Rate 87 12/04/20 05:19 Respiratory Rate 18 12/04/20 05:19 Blood Pressure 128/93 H 12/04/20 05:19 Pulse Oximetry 98 12/04/20 05:19 <Mac Nino MD - Last Filed: 12/03/20 19:59> Vital Signs Temperature 37.0 C 12/03/20 19:52 Pulse Rate 99 12/03/20 19:52 Respiratory Rate 16 12/03/20 19:52 Blood Pressure 129/94 H 12/03/20 19:52 Pulse Oximetry 99 12/03/20 19:52 Temperature 37.0
[2020-12-03 19:59] LABS: Add Urine Microscopic? NO; Appearance Urine Clear (Clear); Bilirubin Urine Negative (Negative); Blood Urine Negative (Negative); Color Urine Colorless (Yellow); Glucose Urine UA Negative (Negative); Ketones Urine Negative (Negative); Leukocyte Esterase Ur Negative LEU/UL (Negative); Nitrate Urine Negative (Negative); Protein Urine Negative (Negative); Urobilinogen Urine Negative mg/dL (<2.0)
[2020-12-03 20:01] LABS: Specific Grav Ur 1.002 (1.001-1.035)
--- NOTE | 2020-12-03 20:06 | PC.NURSE ---
called poison control . monitor pt for 4 hrs r/.t d-amphetamine & alprazolam peaks in 2 hours, they will fax information.
[2020-12-03 20:21] LABS: Alanine Aminotransferase 16 U/L (4-35); Albumin Level 4.9 g/dL (3.5-5.1); Alkaline Phosphatase 56 U/L (38-126); Anion Gap 10 mmol/L (8-16); Aspartate Amino Transferase 28 U/L (14-36); Bilirubin,Total 0.3 mg/dL (0.2-1.3); Blood Urea Nitrogen 6 mg/dL (7-17); Calcium 8.8 mg/dL (8.4-10.2); Carbon Dioxide 25 mmol/L (22-30); Chloride 110 mmol/L (98-107); Estimated CRCL calculation 84 ml/min; Estimated Glomerular Filt Rate > 60; Glucose 108 mg/dL (65-110); Potassium 3.7 mmol/L (3.4-5.0); Sodium 145 mmol/L (137-145)
[2020-12-03 20:37] LABS: Lithium 0.5 mmol/L (0.6-1.2)
[2020-12-03 20:40] LABS: Acetaminophen < 10 ug/mL (10-30); Ethanol 297 mg/dL (<10); Salicylate < 1.0 mg/dL (2-20)
[2020-12-03 20:57] LABS: Amphetamine Screen Urine Positive (Negative); Barbiturate Screen Urine Negative (Negative); Benzodiazepines Screen Urine Negative (Negative); Cannabinoid Screen Urine Negative (Negative); Cocaine Screen Urine Negative (Negative); Methadone Screen Urine Negative (Negative); Opiate Screen Urine Negative (Negative); Phencyclidine Screen Urine Negative (Negative)
[2020-12-03 21:30] LABS: Basophils Absolute Auto 0.1 K/mm3 (0.0-0.1); Basophils Percent Auto 1.1 % (0.2-1.2); Eosinophils Absolute Auto 0.3 K/mm3 (0-0.3); Eosinophils Percent Auto 3.5 % (0-4.4); Hematocrit 40.1 % (37.0-47.0); Hemoglobin 13.7 g/dL (12.0-15.0); Immature Granulocyte Absolute 0.02 K/mm3 (0.00-0.031); Immature Granulocyte Percent A 0.2 % (0-0.5); Lymphocytes Absolute Auto 1.85 K/mm3 (0.9-3.2); Lymphocytes Percent Auto 20.3 % (18.3-44.2); Mean Corpuscular HGB Conc 34.2 g/dl (32-36); Mean Corpuscular Hemoglobin 34.7 pg (26-34); Mean Corpuscular Volume 101.5 fl (80-100); Mean Platelet Volume 8.6 fl (7.4-10.4); Monocytes Absolute Auto 0.4 K/mm3 (0.1-0.6); Monocytes Percent Auto 3.8 % (2.6-8.5); Neutrophils Absolute Auto 6.5 K/mm3 (1.3-6.7); Neutrophils Percent Auto 71.1 % (45.5-73.1); Platelet Count Result 450 k/mm3 (150-375); Red Blood Count 3.95 M/mm3 (4.2-5.4); Red Cell Distribution Width 12.4 % (11.5-14.5); White Blood Count 9.1 K/mm3 (4.5-10.0)
[2020-12-03 22:24] VITALS: BP 122/87; PULSE 99; O2SAT 100
[2020-12-04] MEDS: ALBUTEROL SULFATE (*SP) INHALER 2 PUFF INHALATION (00:20)
[2020-12-04 01:55] VITALS: BP 131/97; PULSE 82; RESP 19; O2SAT 100
[2020-12-04 05:19] VITALS: BP 128/93; PULSE 87; RESP 18; O2SAT 98
[2020-12-04 06:30] LABS: Ethanol 98 mg/dL (<10)
[2020-12-04 08:07] VITALS: BP 120/90; PULSE 80; RESP 12; O2SAT 99
[2020-12-04 08:13] LABS: Ethanol 57 mg/dL (<10)
[2020-12-04] MEDS: ONDANSETRON INJ 4 MG/2 ML VIAL IV PUSH (09:01)
[2020-12-04] MEDS: LORazepam INJ (*CRX) 2 MG/ML VIAL 1 MG IV PUSH (09:46)
[2020-12-04 10:43] VITALS: BP 128/88; PULSE 98; RESP 16; O2SAT 100
== END 2020-12-04 10:44 | disposition home or self-care (01) ==
PROVIDERS: General Practice; Emergency Provider Emergency Medicine; PCP Student in an Organized Health Care Education/Training Program
DX: F10.120 Alcohol abuse with intoxication, uncomplicated (principal); Y90.0 Blood alcohol level of less than 20 mg/100 ml; F17.210 Nicotine dependence, cigarettes, uncomplicated
CPT/HCPCS: 36415; 80053; 80178; 80307; 81003; 81025; 84443; 85025; 93005; 96374; 96375; 99285; A9270; J2060; J2405

== ENCOUNTER 2022-05-30 08:04 | Observation (INO) | payer BC, SELFPAY ==
[2022-05-30] VITALS (29 sets, daily range): BP systolic 128–156; BP diastolic 84–102; PULSE 108–151; RESP 16–37; TEMP 36.3–37.9; O2SAT 97–100; BMI 19.9
--- NOTE | ~2022-05-30 | CT_ITS ---
EXAMINATION: CT BRAIN W/O DATE: 05/30/2022 09:34 INDICATION: Altered mental status TECHNIQUE: Computed tomography (CT) of the head was performed without intravenous contrast. The dose- length product was 605.33 mGy-cm. Automated exposure control and iterative reconstruction technique w ere employed. COMPARISON: CT dated 09/29/2019 FINDINGS: Normal brain parenchymal volume for age. Normal cabral-white differentiation. No acute intrac ranial hemorrhage, infarction, mass or mass effect. No ventriculomegaly or midline shift. Midline sagittal images demonstrate a normal corpus callosum, c raniovertebral junction and sella turcica. Basilar cisterns are patent. Paranasal sinuses and mastoids are pneumatized. No depressed skull fractures. IMPRESSION: 1. No acute intracranial abnormality. Reviewed, dictated and finalized at location A.
--- NOTE | ~2022-05-30 | XR_ITS ---
EXAMINATION: XR chest 1V portable 05/30/2022 09:02 INDICATION: Altered mental status PROCEDURE: AP portable chest COMPARISON: Comparison to multiple prior studies sequentially, with oldest reviewed study dated 06/2007. FINDINGS: The lungs are clear. The cardiomediastinal silhouette is within normal limits. There are no pleural effusions. There is no pneumothorax suspected. IMPRESSION: 1: NO ACUTE CARDIOPULMONARY DISEASE. Reviewed, dictated and finalized at location A.
--- NOTE | 2022-05-30 08:07 | ECG_ITS ---
Measurements Intervals [place] Rate: 139 P: 90 AL: 156 QRS: 50 QRSD: 110 T: 76 QT: 352 QTc: 536 Interpretive Statements SINUS TACHYCARDIA INCOMPLETE RIGHT BUNDLE BRANCH BLOCK BASELINE ARTIFACT- I, V4-V6 ABNORMAL ECG COMPARED TO ECG 12/03/2020 20:17:59 SINUS TACHYCARDIA NOW PRESENT Electronically Signed On 05-30-2022 8:15:30 CDT by Jimmy Garcia D.O.
--- NOTE | 2022-05-30 08:11 | ED.AMS ---
HPI - Altered Mental Status General Chief Complaint: Altered Mental Status Stated Complaint: AMS Time Seen by Provider: 05/30/22 08:06 Source: EMS Mode of arrival: EMS Limitations: altered mental status History of Present Illness HPI narrative: Patient is 47 years old white female came to the ED by ambulance. EMT is telling me that patient was wandering around her house, acting funny, one of the neighbor called the police, when EMT arrived to her house she was pacing all over the house, this talking nonsense, confused. No family member at the house or on arrival to the ED patient is talking nonsense, nonstop, does not follow verbal command. Related Data Home Medications Medication Instructions Recorded Confirmed albuterol sulfate 90 mcg/actuation 2 puff inhalation Q6H PRN 09/29/19 09/29/19 aerosol inhaler Shortness Of Breath bupropion HCl 300 mg 24 hr tablet, 300 mg PO DAILY 09/29/19 09/29/19 extended release lorazepam 0.5 mg tablet 0.5 mg PO Q8H PRN Anxiety 09/29/19 09/29/19 nystatin 100,000 unit/mL oral 5 ml PO QID 09/29/19 09/29/19 suspension vilazodone 40 mg tablet (Viibryd) 40 mg PO DAILY 09/29/19 09/29/19 Allergies Allergy/AdvReac Type Severity Reaction Status Date / Time No Known Allergies Allergy Mild Verified 05/30/22 08:38 [facility] [place] Family History Family History Other Family history of pancreatic cancer Social History Social History Smoking status: Current every day smoker Smoking end date: 03/15/11 Alcohol intake: current Drinks per week: 6 Substance use: unknown Substance use type: prescription drug Gender identity (if verbalized by the patient): Female Spiritual care concerns: No Exam Narrative: General appearance: Well-developed, well-nourished, confused, disoriented, talking nonsense, Skin: Normal color Head: Normocephalic, nontraumatic Eyes: Clear conjunctiva ENT: Dry oral cavity Neck: Supple, nontender Chest and respiratory: Airway patent, no respiratory distress, no accessory muscle use Heart: Tachycardia Abdomen: Soft, nontender, no organomegaly, quiet bowel sounds Vascular: Normal peripheral pulses, normal capillary refill. Musculoskeletal: Normal range of motion, nontender back Neurologic: Alert and disoriented x4 Course Vital Signs Vital signs: Vital Signs Temperature 36.3 C L 05/30/22 07:59 Pulse Rate 147 H 05/30/22 07:59 Respiratory Rate 23 H 05/30/22 07:59 Blood Pressure 150/102 H 05/30/22 07:59 Pulse Oximetry 99 05/30/22 07:59 Oxygen Delivery Room Air 05/30/22 07:59 Temperature 36.3 C L 05/30/22 07:59 Pulse Rate 130 H 05/30/22 09:04 Respiratory Rate 21 H 05/30/22 09:04 Blood Pressure 138/86 05/30/22 09:04 Pulse Oximetry 100 05/30/22 09:04 Oxygen Delivery Room Air 05/30/22 07:59 MDM - Altered Mental Status MDM Narrative Medical decision making narrative: Patient brought to the emergency room by ambulance from home because of abnormal behavior. Patient is awake, disoriented x4, no family member at home or at the bedside on arrival to the ED. Physical examination showed that the patient is disoriented x4, talking nonsense, talking about her ex- and games. Physical examination showed dysuria and did patient, dry dry oral cavity, talking nonstop and does not follow verbal command. Differential diagnosis include acute psychosis, suicidal attempt using drug overdose, intracranial pathology, alcohol intoxication, major depression related symptoms Labs, EKG, chest x-ray and CT head ordered Normal saline of 1 L IV,
[2022-05-30] MEDS: LORazepam INJ (*CRX) 2 MG/ML VIAL IM (08:39)
[2022-05-30] MEDS: HALOPERIDOL LACTATE 5 MG/ML VIAL IM (08:39)
[2022-05-30 08:41] LABS: Base Excess ABG -3.1 mEq/l (+/-2.0); Fractional Inspired Oxygen 21 %; HCO3 ABG 21.1 mEq/l (22.0-26.0); Oxygen Content ABG 16.8 %vol (16.0-22.0); Oxygen Saturation ABG 97.1 % (95.0-100.0); Oxyhemoglobin 95.6 % THb (90.0-100.0); PCO2 ABG 34.9 mmHg (35.0-45.0); PO2 ABG 91.9 mmHg (80.0-100.0); PO2 FiO2 Ratio Arterial Blood 4.38 %; Total Hemoglobin 12.4 g/dL (12.0-18.0); pH ABG 7.399 (7.350-7.450)
[2022-05-30] MEDS: SODIUM CHLORIDE 0.9% IV 1,000 ML 999 ML IV CONT ×2 (08:41→11:32)
[2022-05-30 08:42] LABS: Device ROOM AIR; Site Drawn LEFT BRACHIAL
--- NOTE | 2022-05-30 08:49 | PC.NURSE ---
pt not making sense, receptively speaking about pasta, [place] [employer]. rambling about her . pt non directable at this time, thrashing. Haldol and Atican given to pt as per dr moy order. pt placed in soft restraints for safety.
[2022-05-30 08:54] LABS: Basophils Absolute Auto 0.1 K/mm3 (0.0-0.1); Basophils Percent Auto 0.7 % (0.2-1.2); Eosinophils Absolute Auto 0.1 K/mm3 (0-0.3); Eosinophils Percent Auto 0.5 % (0-4.4); Hematocrit 35.4 % (37.0-47.0); Immature Granulocyte Absolute 0.04 K/mm3 (0.00-0.031); Immature Granulocyte Percent A 0.4 % (0-0.5); Lymphocytes Absolute Auto 1.95 K/mm3 (0.9-3.2); Lymphocytes Percent Auto 20.5 % (18.3-44.2); Mean Corpuscular HGB Conc 33.9 g/dl (32-36); Mean Corpuscular Hemoglobin 33.2 pg (26-34); Mean Corpuscular Volume 98.1 fl (80-100); Mean Platelet Volume 8.6 fl (7.4-10.4); Monocytes Absolute Auto 0.6 K/mm3 (0.1-0.6); Monocytes Percent Auto 6.4 % (2.6-8.5); Neutrophils Absolute Auto 6.8 K/mm3 (1.3-6.7); Neutrophils Percent Auto 71.5 % (45.5-73.1); Platelet Count Result 396 k/mm3 (150-375); Red Blood Count 3.61 M/mm3 (4.2-5.4); Red Cell Distribution Width 12.6 % (11.5-14.5); White Blood Count 9.5 K/mm3 (4.5-10.0)
[2022-05-30 09:04] LABS: INR 1.1; Prothrombin Time 13.5 Seconds (11.1-14.7)
[2022-05-30 09:05] LABS: Albumin Level 4.8 g/dL (3.5-5.1); Alkaline Phosphatase 65 U/L (38-126); Anion Gap 16 mmol/L (8-16); Aspartate Amino Transferase 65 U/L (14-36); Bilirubin,Total 0.9 mg/dL (0.2-1.3); Blood Urea Nitrogen 5 mg/dL (7-17); Calcium 9.2 mg/dL (8.4-10.2); Carbon Dioxide 20 mmol/L (22-30); Chloride 102 mmol/L (98-107); Creatine Kinase 1155 U/L (30-135); Estimated Glomerular Filt Rate > 60; Glucose 103 mg/dL (65-110); Partial Thromboplastin Time 24.4 SECONDS (22.3-36.8); Potassium 3.6 mmol/L (3.4-5.0); Sodium 138 mmol/L (137-145)
[2022-05-30 09:07] LABS: Lactic Acid Reflex 8.2 mmol/L (0.7-2.0)
[2022-05-30 09:11] LABS: Alanine Aminotransferase 43 U/L (6-35)
[2022-05-30 09:12] LABS: Acetaminophen < 10 ug/mL (10-30); Ethanol < 10 mg/dL (<10); Salicylate < 1.0 mg/dL (2-20)
[2022-05-30 09:23] LABS: Appearance Urine Clear (Clear); Bacteria Urine None Seen /hpf; Bilirubin Urine Negative (Negative); Blood Urine Trace (Negative); Color Urine Yellow (Yellow); Glucose Urine UA Negative (Negative); Ketones Urine 1+ mg/dL (Negative); Leukocyte Esterase Ur Negative LEU/UL (Negative); Need Manual Microscopic Reviewed; Nitrate Urine Negative (Negative); Protein Urine Trace mg/dL (Negative); RBC Urine 0-2 /hpf (0-2); Specific Grav Ur 1.019 (1.001-1.035); Squamous Epithelial Cell Urine None seen /hpf (Few); Urobilinogen Urine 0.2 mg/dL (<2.0); WBC Urine 0-5 /hpf; pH Urine 5.5 (5.0-9.0)
[2022-05-30 09:23] LABS: Amphetamine Screen Urine Negative (Negative); Barbiturate Screen Urine Negative (Negative); Benzodiazepines Screen Urine Positive (Negative); Cannabinoid Screen Urine Negative (Negative); Cocaine Screen Urine Negative (Negative); Methadone Screen Urine Negative (Negative); Opiate Screen Urine Positive (Negative); Phencyclidine Screen Urine Negative (Negative)
[2022-05-30 09:26] LABS: SARS-CoV-2 RNA PCR Negative
--- NOTE | 2022-05-30 09:26 | PC.NURSE ---
Sister Susan Bhardwaj [phone] sister reports recent stressors in life Of the pt, ugly divorce. pt had an OOP placed on her to protect ex- and son. pt noted to be chronic alcoholic. pt said to have statements of self harm last evening that led to conversation with Candy SUAZO. pt had recent Breast implant exchange surgery. sister is flying into town this evening in attempt to aid her sister from [place].
[2022-05-30 09:33] LABS: Add Urine Microscopic? YES
[2022-05-30 09:34] LABS: Thyroid Stimulating Hormone 0.186 uIU/mL (0.465-4.680)
[2022-05-30] MEDS: LORazepam INJ (*CRX) 2 MG/ML VIAL 1 MG IV PUSH ×3 (11:32→23:12)
[2022-05-30 11:48] LABS: Reflex Lactic Acid Yes or No Add Lactic
--- NOTE | 2022-05-30 14:30 | PM.IMHP ---
H&P: HPI History of Present Illness Date/Time: 05/30/22 13:45 Chief Complaint: Altered mental status. Narrative: This is a 47-year-old female with history of alcohol abuse, anxiety, depression, suicide attempt, and seizures which appear to be related to an intentional overdose who presented to the emergency department via EMS for evaluation of altered mental status. She is able to provide some history but she does not really remember the events that happened over the last 12 hours or so and thus a majority of the following is obtained via a review of her electronic medical records. According to the triage and ED physician notes, a neighbor called police this morning as the patient was apparently running around outside of her house, acting strangely. On EMS arrival she appeared confused, was talking nonsense, and was pacing about the home; she was unable to be redirected. Police indicate that they initially arrived on scene and helped her with a change of clothes as she had urinated on herself. It is also noted that the police were called to her residence last night to do a welfare check at which time she was heavily intoxicated. The patient tells me that she only had 3 to 4 beers but she took them with Xanax (sometimes 3 or 4, 1 mg tablets) which ?makes me black out and forget.? She does not recall what happened thereafter but indicates to me that she was supposed to God this morning. In addition to Xanax, she has prescriptions for alprazolam, bupropion, and quetiapine. He takes them as prescribed and denies taking extra doses. Once the patient was more alert this evening, she was able to tell the nurse that she had been taking bupropion 300 mg twice a day instead of once a day. It is my understanding that she used to be on bupropion 150 mg twice a day but it was changed to an extended release. She did not intentionally take extra medication. Currently she is taking oxycodone as well following a breast augmentation surgery done last . She denies ingesting any other substances. She indicates that she has had a lot of stress recently with a bitter divorce. She denies suicidal ideation. She is denying visual, auditory, and tactile hallucinations. No recent illnesses. she denies headache and neck ache. No auditory visual changes. No focal weakness or paresthesias. She has not had chest pain or shortness of breath. She denies nausea, vomiting, and diarrhea. No abdominal pain. No dysuria. On arrival to the ED she was tachypneic, tachycardic, and afebrile with a blood pressure of 150/102. Labs were significant for a WBC count of 9.5, lactic acid 8.2, sodium 138, potassium 3.6, carbon dioxide 20, anion gap 16, BUN 5, creatinine 0.60, glucose 103, total bilirubin 0.9, AST 65, ALT 43, alkaline phosphatase 65, total CK 1115, TSH 0.186. Urine showed 1+ ketones but was otherwise pretty unremarkable. She tested negative for COVID. Ethyl alcohol level was less than 10. Urine drug screen was positive for opiates and benzodiazepines. Head CT and chest x-ray showed no acute findings. She was given lorazepam and haloperidol in the emergency department for suspected alcohol withdrawal and she is being admitted in this setting. Review of Systems Review of Systems: Twelve systems were reviewed though limited given her confusion as detailed above. Negative except for as per HPI. [facility] Past Medical History Medical History (Updated 05/30/22 @ 21:01 by Taylor Guan PA-C) Alcohol abuse Anxiety Asthma Depression Suicide attempt (09/2019) Intentional overdose alcohol, Wellbutrin, Ativan. Surgical History Surgical History (Updated 05/30/22 @ 20:26 by Taylor Guan PA-C) History of breast augmentation History of tonsillectomy Family History Family History Other Family history of pancreatic cancer Social History Social History (Updated 05/30/22 @ 20:26 by Taylor Guan PA-C) Social
[2022-05-30] MEDS: SODIUM CHLORIDE 0.9% IV 1,000 ML 250 ML IV CONT ×3 (14:37→20:32)
--- NOTE | 2022-05-30 14:57 | ECG_ITS ---
Measurements Intervals [place] Rate: 114 P: 74 FL: 162 QRS: -11 QRSD: 93 T: 55 QT: 381 QTc: 526 Interpretive Statements SINUS TACHYCARDIA DELAYED PRECORDIAL R/S TRANSITION BASELINE ARTIFACT- I, II, III, AVR, AVL, AVF, V1 ABNORMAL ECG COMPARED TO ECG 05/30/2022 08:08:41 NO SIGNIFICANT CHANGES Electronically Signed On 05-30-2022 21:48:04 CDT by Jimmy Garcia D.O.
[2022-05-30 15:43] LABS: Ammonia < 9 umol/L (9-30)
[2022-05-30 15:46] LABS: INR 1.1
[2022-05-30 15:47] LABS: Partial Thromboplastin Time 25.9 SECONDS (22.3-36.8)
[2022-05-30 15:50] LABS: Anion Gap 6 mmol/L (8-16); Blood Urea Nitrogen 4 mg/dL (7-17); Calcium 8.5 mg/dL (8.4-10.2); Carbon Dioxide 24 mmol/L (22-30); Chloride 106 mmol/L (98-107); Estimated CRCL calculation 89 ml/min; Estimated Glomerular Filt Rate > 60; Glucose 94 mg/dL (65-110); Potassium 3.7 mmol/L (3.4-5.0); Sodium 136 mmol/L (137-145)
[2022-05-30 15:52] LABS: CRP 0.7 mg/dL (<1.0); Creatine Kinase 1587 U/L (30-135); Magnesium 1.6 mg/dL (1.6-2.3)
[2022-05-30 16:19] LABS: Procalcitonin 0.1 ng/mL
[2022-05-30] MEDS: THIAMINE HCL 200 MG/2 ML VIAL 100 MG IV PUSH (16:56)
[2022-05-30 22:00] LABS: T4 Thyroxine 7.29 ug/dL (5.53-11.0)
[2022-05-31] VITALS (11 sets, daily range): BP systolic 101–125; BP diastolic 70–98; PULSE 88–107; RESP 16–24; TEMP 36.7–36.9; O2SAT 97–99
[2022-05-31 00:10] LABS: Glucose Point of Care 123 mg/dl (65-105)
[2022-05-31 04:27] LABS: Hematocrit 32.8 % (37.0-47.0); Hemoglobin 11.5 g/dL (12.0-15.0); Mean Corpuscular HGB Conc 35.1 g/dl (32-36); Mean Corpuscular Hemoglobin 33.7 pg (26-34); Mean Corpuscular Volume 96.2 fl (80-100); Mean Platelet Volume 8.4 fl (7.4-10.4); Platelet Count Result 337 k/mm3 (150-375); Red Blood Count 3.41 M/mm3 (4.2-5.4); Red Cell Distribution Width 12.7 % (11.5-14.5); White Blood Count 8.4 K/mm3 (4.5-10.0)
[2022-05-31 04:36] LABS: Ammonia 11 umol/L (9-30)
[2022-05-31 04:38] LABS: Alanine Aminotransferase 27 U/L (6-35); Albumin Level 3.6 g/dL (3.5-5.1); Alkaline Phosphatase 48 U/L (38-126); Anion Gap 6 mmol/L (8-16); Aspartate Amino Transferase 69 U/L (14-36); Bilirubin,Total 0.9 mg/dL (0.2-1.3); Blood Urea Nitrogen 3 mg/dL (7-17); Calcium 7.9 mg/dL (8.4-10.2); Carbon Dioxide 26 mmol/L (22-30); Chloride 105 mmol/L (98-107); Creatine Kinase 1302 U/L (30-135); Estimated CRCL calculation 105 ml/min; Estimated Glomerular Filt Rate > 60; Glucose 93 mg/dL (65-110); Magnesium 1.9 mg/dL (1.6-2.3); Potassium 3.3 mmol/L (3.4-5.0); Sodium 137 mmol/L (137-145)
[2022-05-31] MEDS: SODIUM CHLORIDE 0.9% IV 1,000 ML 125 ML IV CONT ×2 (05:47→15:05)
[2022-05-31] MEDS: THIAMINE HCL 200 MG/2 ML VIAL 100 MG IV PUSH (08:25)
[2022-05-31] MEDS: FOLIC ACID 1 MG TABLET PO (08:25)
[2022-05-31 12:03] LABS: Glucose Point of Care 143 mg/dl (65-105)
--- NOTE | 2022-05-31 13:29 | ECG_ITS ---
Measurements Intervals [place] Rate: 89 P: 80 [place]: 160 QRS: -5 QRSD: 91 T: 50 QT: 385 QTc: 470 Interpretive Statements SINUS RHYTHM POSSIBLE LEFT ATRIAL ENLARGEMENT INCOMPLETE RIGHT BUNDLE BRANCH BLOCK BORDERLINE ECG COMPARED TO ECG 05/30/2022 21:05:34 SINUS RHYTHM NOW PRESENT Electronically Signed On 05-31-2022 17:22:39 CDT by Jimmy Garcia D.O.
[2022-05-31] MEDS: LORazepam INJ (*CRX) 2 MG/ML VIAL 1 MG IV PUSH (13:37)
[2022-05-31 16:56] LABS: Glucose Point of Care 127 mg/dl (65-105)
--- NOTE | 2022-05-31 18:39 | PM.DS ---
DS: Admitting Diagnosis Discharge Date 05/31/22 Admitting Diagnosis Altered mental status DS: Discharge Diagnosis Discharge Diagnosis (1) Altered mental status: Code(s): R41.82 - Altered mental status, unspecified Status: Acute (2) Rhabdomyolysis: Code(s): M62.82 - Rhabdomyolysis Status: Acute (3) Delirium: Code(s): R41.0 - Disorientation, unspecified Status: Acute (4) Prolonged QT interval: Code(s): R94.31 - Abnormal electrocardiogram [ECG] [EKG] Status: Acute (5) Depression with anxiety: Code(s): F41.8 - Other specified anxiety disorders Status: Acute (6) Alcohol abuse: Code(s): F10.10 - Alcohol abuse, uncomplicated Status: Acute DS: Summary Hospital Course Reason for hospitalization: 47yo female with history of alcohol abuse, anxiety, depression, suicide attempt, and seizures which appear to be related to an intentional overdose here for evaluation of altered mental status.?Please see H&P for details. Hospital Course: Patient was found confused wandering outside her house. She was brought to the emergency room for evaluation. EKG showed sinus tachycardia with incomplete right bundle branch block and prolonged QT interval. CBC was normal. ABG was normal on room air. CXR clear and CT brain showing no acute findings. TSH was low at 0.19 AST mildly elevated felt related to the rhabdomyolysis. Total CK climbed to 1500. CRP was normal. With IV fluids, her creatinine kinase level trended downward. Patient admits to taking her medications inappropriately. She did have a recent breast surgery and had narcotics from that procedure. She also has alprazolam 1mg q4hr prn but she states she only takes these once daily on average. Her sister who is available in the room (with patient permission) states the patietn had been sober for about 1 year but recently started to drink alcohol again beginning about 1 month ago. She has also has been taking her medications inappropriately. The patient is not sure how much she took of what medication but denies feeling suicidal or homicidal. Suicide prevention lifeline information was provided. Repeat EKG showing QTc improved. We held a majority of her medciations. Her CIWA score was extremely elevated but mostly 1-3 today. Patient was insistent on being discharged and feared losing her job if she did not go to [facility] [employer]. Long discussion with patient and sister. The sister christian be staying with the patient. We have increased her IV fluids today and she is fluid positive. She will continue to drink free fluid at home and return to the ED or see her doctor if she starts to have decrease in urine output or other concerning symptoms. She was advised to stop her bupropion and seroquel (she was not taking these regularly). The sister states that the abx bottle (cephalexin?) was empty and that the patient may have taken them all at once. Patient did well. I warned her of the possibility of worsening withdrawal symptoms. She is still insistent on discharge. Her sister agrees to watch the patient. Will plan to discharge home tonight. Status at Discharge Cognitive/behavioral status at discharge: stable Time Spent with Patient Time attestation: Total time spent providing and/or coordinating discharge services: 40 minutes Time spent: Greater than 30 minutes Exam Narrative: 98.1 125/98 96 16 98% ra Gen - NARD Chest - CTA bilaterally, nml RR. CV - RRR S1/S2 Abd - Soft, NT/ND, Positive BS Ext - No pedal edema Neuro - Alert and oriented. Nonfocal exam. No tremors Psych - Nml mood and affect Skin - Warm and dry. No diaphoresis. Breast incisions clean, dry and intact. No obvious drainage or erythema (RN school office assistant the exam as did the sister). DS: Data Data Completed and Pending Labs on day of discharge: Labs from last 24 hours 05/31/22 05/31/22 05/31/22 16:39 11:46 04:20 WBC RBC Hgb Hct
--- NOTE | 2022-05-31 19:40 | PC.NURSE ---
Went over discharge paperwork with pt. All questions answered. IV and tele monitor removed. Pt traveling home with sister.
== END 2022-05-31 19:30 | disposition home or self-care (01) ==
LOC: ANHED 10:15 → ANHIMU 12:22
PROVIDERS: Physician Assistant; Admitting Provider Internal Medicine; Emergency Provider Emergency Medicine; PCP Student in an Organized Health Care Education/Training Program; Visit Provider Internal Medicine
DX: R41.82 Altered mental status, unspecified (principal); M62.82 Rhabdomyolysis; F19.10 Other psychoactive substance abuse, uncomplicated; F10.10 Alcohol abuse, uncomplicated; Y90.0 Blood alcohol level of less than 20 mg/100 ml; F23 Brief psychotic disorder; R94.31 Abnormal electrocardiogram [ECG] [EKG]; F41.8 Other specified anxiety disorders; R00.1 Bradycardia, unspecified; R56.9 Unspecified convulsions; Z20.822 Contact with and (suspected) exposure to COVID-19; F17.210 Nicotine dependence, cigarettes, uncomplicated; Z79.51 Long term (current) use of inhaled steroids; Z79.891 Long term (current) use of opiate analgesic; Z79.899 Other long term (current) drug therapy
CPT/HCPCS: 36415; 36600; 70450; 71045; 80048; 80053; 80307; 81001; 81025; 82140; 82550; 82607; 82805; 82948; 83605; 83735; 84145; 84436; 84443; 85025; 85027; 85610; 85730; 86140; 87040; 93005; 96360; 96361; 96372; 96374; 96375; 96376; 99285; A9270; G0378; G0379; J1630; J2060; J3411; J7030; U0003; U0005

== ENCOUNTER 2022-07-04 11:21 | Inpatient (IN) | payer BC, SELFPAY ==
[2022-07-04] VITALS (32 sets, daily range): BP systolic 101–140; BP diastolic 68–97; PULSE 67–107; RESP 11–29; TEMP 36.7–37.3; O2SAT 96–100; BMI 19.3
--- NOTE | 2022-07-04 12:13 | ED.ALCOHOL ---
HPI - Alcohol General Chief Complaint: Alcohol <Evelia Mcgee PA-C - Last Filed: 07/04/22 16:47> Stated Complaint: ETOH <Evelia Mcgee PA-C - Last Filed: 07/04/22 16:47> Time Seen by Provider: 07/04/22 12:02 <Evelia Mcgee PA-C - Last Filed: 07/04/22 16:47> Source: patient <JAIME Hammond Last Filed: 07/04/22 16:47> Mode of arrival: ambulatory <Evelia Mcgee PA-C - Last Filed: 07/04/22 16:47> Limitations: no limitations <Evelia Mcgee PA-C - Last Filed: 07/04/22 16:47> History of Present Illness HPI narrative: Patient is a 47 y/o female with PMH of alcoholism who presents to the ED with report of alcohol withdrawal. Patient has a long history of alcoholism. She states she has relapsed several times, was clean for 7 years, but began drinking again 37 days ago. She is a daily beer drinker. She drinks 6-10 beers per day. She drank her normal amount yesterday. She only drank half a beer this morning. She does have history of withdrawal symptoms and withdrawal seizures in the past. She complains of severe nausea and vomiting, epigastric abdominal pain, anxiety, tremors. Patient does report having nausea and vomiting over the last couple of days, which became worse today to the point she is unable to keep anything down. Patient presents with her brother. He has plans to take her to an addiction treatment center called [facility] in [place], [place] after her detox. Patient denies CP, SOB, fevers, diarrhea. <Evelia Mcgee PA-C - Last Filed: 07/04/22 16:47> Last drink: hours (ago) <JAIME Hammond Last Filed: 07/04/22 16:47> Chronic alcohol use: Yes <JAIME Hammond Last Filed: 07/04/22 16:47> Previous visits for alcohol intoxication: Yes <Evelia Mcgee PA-C - Last Filed: 07/04/22 16:47> Recent trauma: No <Evelia Mcgee PA-C - Last Filed: 07/04/22 16:47> Related Data Home Medications: Home Medications Medication Instructions Recorded Confirmed albuterol sulfate 90 mcg/actuation 2 puff inhalation Q6H PRN 09/29/19 07/04/22 aerosol inhaler Shortness Of Breath quetiapine 200 mg tablet 200 mg PO HS 05/30/22 07/04/22 alprazolam 1 mg tablet 1 mg PO Q4H PRN Withdrawal Symptoms 07/04/22 07/04/22 <Evelia Mcgee PA-C - Last Filed: 07/04/22 16:47> Allergies/Adverse Reactions: Allergies Allergy/AdvReac Type Severity Reaction Status Date / Time No Known Allergies Allergy Mild Verified 05/30/22 22:50 <Evelia Mcgee PA-C - Last Filed: 07/04/22 16:47> Review of Systems Review of Systems: CONSTITUTIONAL: Denies fever, chills, or sweats. CARDIOVASCULAR: Denies chest pain. RESPIRATORY: Denies dyspnea. GASTROINTESTINAL: See HPI. GENITOURINARY: Denies dysuria or hematuria. SKIN: Denies rash or itching. MUSCULOSKELETAL: Denies back pain, joint pain, or myalgia. NEUROLOGIC: See HPI. PSYCHIATRIC: See HPI. <Evelia Mcgee PA-C - Last Filed: 07/04/22 16:47> All systems reviewed & are unremarkable except as noted in HPI and below <Evelia Mcgee PA-C - Last Filed: 07/04/22 16:47> PMFSH Past Medical History Medical History: Medical History Alcohol abuse Anxiety Asthma Depression History of seizure due to alcohol withdrawal Suicide attempt (09/2019) Intentional overdose alcohol, Wellbutrin, Ativan. <Evelia Mcgee PA-C - Last Filed: 07/04/22 16:47> Surgical History Surgical History: Surgical History History of breast augmentation History of tonsillectomy <Evelia Mcgee PA-C - Last Filed: 07/04/22 16:47> Family History Family History: Family History (Updated 07/04/22 @ 17:52 by Colleen Mccauley RN) Other Family history of pancreatic cancer <Evelia Petty
--- NOTE | 2022-07-04 12:17 | ECG_ITS ---
Measurements Intervals Waterflow Rate: 86 P: 78 CA: 148 QRS: 36 QRSD: 89 T: 72 QT: 340 QTc: 408 Interpretive Statements SINUS RHYTHM INCOMPLETE RIGHT BUNDLE BRANCH BLOCK BORDERLINE ECG COMPARED TO ECG 05/31/2022 13:50:48 NO DIFFERENCE Electronically Signed On 07-05-2022 7:40:15 CDT by Justen Mansfield M.D.
[2022-07-04 12:19] LABS: Basophils Percent Auto 0.2 % (0.2-1.2); Hematocrit 42.5 % (37.0-47.0); Hemoglobin 14.9 g/dL (12.0-15.0); Immature Granulocyte Absolute 0.03 K/mm3 (0.00-0.031); Immature Granulocyte Percent A 0.3 % (0-0.5); Lymphocytes Percent Auto 11.4 % (18.3-44.2); Mean Corpuscular HGB Conc 35.1 g/dl (32-36); Mean Corpuscular Hemoglobin 33.3 pg (26-34); Mean Corpuscular Volume 95.1 fl (80-100); Mean Platelet Volume 8.2 fl (7.4-10.4); Monocytes Absolute Auto 0.6 K/mm3 (0.1-0.6); Monocytes Percent Auto 5.2 % (2.6-8.5); Neutrophils Absolute Auto 8.7 K/mm3 (1.3-6.7); Neutrophils Percent Auto 82.9 % (45.5-73.1); Platelet Count Result 474 k/mm3 (150-375); Red Blood Count 4.47 M/mm3 (4.2-5.4); Red Cell Distribution Width 12.3 % (11.5-14.5); White Blood Count 10.5 K/mm3 (4.5-10.0)
--- NOTE | 2022-07-04 12:20 | PC.NURSE ---
Per ALICE Altamirano, Pt has hx of prolonged QT interval. Order for zofran discontinued.
[2022-07-04 12:29] LABS: Ethanol < 10 mg/dL (<10)
[2022-07-04 12:30] LABS: Alanine Aminotransferase 23 U/L (6-35); Albumin Level 4.9 g/dL (3.5-5.1); Alkaline Phosphatase 64 U/L (38-126); Anion Gap 7 mmol/L (8-16); Aspartate Amino Transferase 31 U/L (14-36); Blood Urea Nitrogen 7 mg/dL (7-17); Calcium 9.5 mg/dL (8.4-10.2); Carbon Dioxide 21 mmol/L (22-30); Chloride 104 mmol/L (98-107); Estimated CRCL calculation 90 ml/min; Estimated Glomerular Filt Rate > 60; Glucose 143 mg/dL (65-110); Potassium 3.6 mmol/L (3.4-5.0); Sodium 132 mmol/L (137-145)
[2022-07-04] MEDS: SODIUM CHLORIDE 0.9% IV 1,000 ML 999 ML IV CONT (12:36)
[2022-07-04] MEDS: LORazepam INJ (*CRX) 2 MG/ML VIAL 0.5 MG IV PUSH ×2 (12:45→13:45)
[2022-07-04] MEDS: PANTOPRAZOLE SODIUM IV 40 MG VIAL IV PUSH ×2 (12:47→22:17)
--- NOTE | 2022-07-04 13:02 | PC.NURSE ---
Brother states patient has rehab set up at [facility] in [place], [place] but has been instructed to detox prior to admission.
--- NOTE | 2022-07-04 13:02 | PC.NURSE ---
Pt reports recent breast augmentation on May 29
[2022-07-04] MEDS: SCOPOLAMINE 1.5 MG PATCH TRANSDERM (13:07)
[2022-07-04] MEDS: POTASSIUM/PHOSPHORUS/SODIUM 1.5 GM PACKET 1 PACKET PO (13:33)
[2022-07-04 13:38] LABS: Creatine Kinase 113 U/L (30-135)
[2022-07-04 14:32] LABS: Appearance Urine Clear (Clear); Bilirubin Urine Negative (Negative); Blood Urine Trace (Negative); Color Urine Yellow (Yellow); Glucose Urine UA Negative (Negative); Ketones Urine 1+ mg/dL (Negative); Leukocyte Esterase Ur Trace LEU/UL (Negative); Need Manual Microscopic Reviewed; Nitrate Urine Negative (Negative); Non Pathogenic Casts 0-2; Protein Urine Negative (Negative); RBC Urine 0-2 /hpf (0-2); Specific Grav Ur 1.006 (1.001-1.035); Squamous Epithelial Cell Urine Few /hpf (Few); Urobilinogen Urine 0.2 mg/dL (<2.0); WBC Urine 0-5 /hpf
[2022-07-04 14:33] LABS: Add Urine Microscopic? YES; Bacteria Urine Trace /hpf
[2022-07-04 14:37] LABS: Amphetamine Screen Urine Negative (Negative); Barbiturate Screen Urine Negative (Negative); Benzodiazepines Screen Urine Negative (Negative); Cannabinoid Screen Urine Negative (Negative); Cocaine Screen Urine Negative (Negative); Methadone Screen Urine Negative (Negative); Opiate Screen Urine Negative (Negative); Phencyclidine Screen Urine Negative (Negative)
--- NOTE | 2022-07-04 16:00 | PM.IMHP ---
H&P: HPI History of Present Illness Date/Time: 07/04/22 16:00 Chief Complaint: Alcohol withdrawal. Narrative: This is a 47-year-old female with history of alcohol abuse, alcohol withdrawal syndrome including a withdrawal seizure, anxiety, depression, suicide attempt, and seizures which appear to be related to an intentional overdose who presented to the emergency department via EMS for evaluation of alcohol withdrawal. Patient provides the following history. She is supposed to be going to rehab for alcohol tomorrow they will not take her until she has gone through detox. She typically drinks about 10 beers a day, has had periods of sobriety but has been drinking for the last 37 days. She had a half a beer this morning she was having symptoms of alcohol withdrawal, prior to that she had not had a drink for about 24 hours. She reports anxiety, shakes, nausea, vomiting, and epigastric discomfort which started earlier today. In the ED her CIWA scores have been consistently above 10 and she is being admitted in this setting. She has not had any seizure activity today and she denies hallucinations. She has not noticed any bright red blood in her vomit but she does remark that her emesis was dark brown in color today. She denies melena and hematochezia. Review of Systems Review of Systems: Twelve systems were reviewed. No fever, chills, sweats. No recent cold or flu symptoms. She has frequent diarrhea which she attributes to the alcohol abuse. She has not had much in the way of fluid over the past 1 week, consuming most were calories in the form of alcohol. Except as documented, all other systems were reviewed and are negative. [facility] Past Medical History Medical History Alcohol abuse Anxiety Asthma Depression History of seizure due to alcohol withdrawal Suicide attempt (09/2019) Intentional overdose alcohol, Wellbutrin, Ativan. Surgical History Surgical History History of breast augmentation History of tonsillectomy Family History Family History Other Family history of pancreatic cancer Social History Social History Social History: Surrogate medical decision maker: Brady Ross, brother. Code status: Full code. Smoking packs per day: 0.5 Smoking cigarettes per day: 10.0 Years smoked: 10 Smoking pack-years: 5.00 Smoking status: Current every day smoker Tobacco type: cigarettes Smoking end date: 03/15/11 Alcohol intake: current Drinks per week: 70 Alcohol use details: Ten beers a day. Substance use: never Substance use type: prescription drug Lack of Transportation: No Lack of Food: Never True Current Housing: I Have Housing Concerned About Future Housing: No Difficulty Paying Gas/Electric Bills: No Difficulty Paying for Meds: No Currently Unemployed: No Education: Bachelor's Degree Difficulty w/ Childcare or Family Care: No Spiritual care concerns: No Meds Home Medications and Allergies Home Medications Medication Instructions Recorded Confirmed Type albuterol sulfate 90 mcg/actuation 2 puff inhalation Q6H PRN 09/29/19 07/04/22 History aerosol inhaler Shortness Of Breath quetiapine 200 mg tablet 600 mg PO HS 05/30/22 07/04/22 History folic acid 1 mg tablet 1 mg PO DAILY #30 tabs 05/31/22 07/04/22 Rx thiamine HCl (vitamin B1) 100 mg 100 mg PO DAILY #30 tabs 05/31/22 07/04/22 Rx tablet (Vitamin B-1) alprazolam 1 mg tablet 1 mg PO Q4H PRN Withdrawal Symptoms 07/04/22 07/04/22 History Allergies Allergy/AdvReac Type Severity Reaction Status Date / Time No Known Allergies Allergy Mild Verified 05/30/22 22:50 Vital Signs Vital Signs - 24 hr 07/04/22 11:51 07/04/22 12:03 07/04/22 14:07 Temperature 99.1 F Pulse Rate 104 H 10
[2022-07-04] MEDS: chlordiazePOXIDE (*CRX) 10 MG CAPSULE PO ×2 (16:07→22:17)
[2022-07-04 16:40] LABS: Lipase 58 U/L (23-300)
[2022-07-04] MEDS: LORazepam INJ (*CRX) 2 MG/ML VIAL 1 MG IV PUSH ×2 (17:04→20:11)
[2022-07-04 19:41] LABS: Glucose Point of Care 149 mg/dl (65-105)
[2022-07-04] MEDS: QUEtiapine FUMARATE 25 MG TABLET 50 MG PO (22:17)
[2022-07-05] VITALS (30 sets, daily range): BP systolic 103–145; BP diastolic 68–101; PULSE 42–112; RESP 17–20; TEMP 35.5–37.2; O2SAT 95–100
[2022-07-05] MEDS: LORazepam INJ (*CRX) 2 MG/ML VIAL 1 MG IV PUSH ×2 (00:06→00:56)
--- NOTE | 2022-07-05 00:13 | PC.NURSE ---
PT RESTLESSNESS HAS INCREASED. PT SETTING OFF BED ALARM GETTING OUT OF BED. PT CONTINUOUSLY CALLING TO NURSERS STATION TO USE THE BATHROOM AND ONCE IN THE ROOM FORGETTING WHAT SHE CALLED FOR OR ASKING FOR SOMETHING UNRELATED TO THE RESTROOM. PT ASKED HOSPITAL COORDINATOR TO LET HER GO TO HER CAR TO GET MEDICATIONS OUT OF IT. HOSPITAL COORDINATOR INFORMED HER SHE WAS NOT ABLE TO LEAVE THE UNIT. PT THEN RESPONDED BY TELLING THE HOSPITAL COORDINATOR THAT HER TOOK THE VEHICLE HOME. PT CONTINUES TO ASK TO PACK AND GET DRESSED BECAUSE SHE NEEDS TO LEAVE FOR REHAB. WE HAVE HAD TO REORIENT THE PT MULTIPLE TIMES TELLING HER THE CORRECT DATE. PT THINKS IT IS WEDNESDAY AND SHE NEEDS TO BE DISCHARGED FOR REHAB.
[2022-07-05] MEDS: HALOPERIDOL LACTATE 5 MG/ML VIAL 2 MG IV PUSH ×2 (01:45→07:20)
--- NOTE | 2022-07-05 01:52 | PC.NURSE ---
0152 PT WAS FOUND TO HAVE MULTIPLE PACKS OF CIGARETTES AND A DECORATING CONSULTANT IN HER ROOM BY [facility]. DECORATING CONSULTANT FELL OUT OF BED WHEN PT ASKED ME TO REMOVE A WET BLANKET. I ASKED PT FOR CIGARETTES INFORMING HER SHE COULD NOT SMOKE IN THE HOSPITAL. PT CONTINUES TO JUMP OUT OF BED AND BE SUSPICIOUS. AGITATION AND ANXIETY INCREASING DESPITE PT HAVING 1X DOSE OF ATIVAN AND HALDOL WITHIN THE LAST HOUR.
[2022-07-05] MEDS: chlordiazePOXIDE (*CRX) 25 MG CAPSULE PO (02:16)
[2022-07-05] MEDS: LORazepam INJ (*CRX) 2 MG/ML VIAL IV PUSH ×3 (03:07→23:33)
--- NOTE | 2022-07-05 03:28 | PM.EVENT ---
Event Note Event Note Event Note: As shortly after midnight nursing staff called tell me that the patient CIWA scores had remained greater than 15 for 2 consecutive checks despite administering p.r.n. medications. I increase the patient's Librium at that time to 25 mg q.6. The patient was given an extra dose of Ativan as well. Despite these measures the patient's CIWA scores continued to climb and is now up to 20. The patient is hallucinating and thinks that her son is in the room. She is commence that she has to go to work this morning is adamant that she is going to leave the hospital. She is technically or alert oriented to person place and time but is not oriented to situation. She seems to understand that she is going through alcohol withdrawal but then when we try to redirect her regarding her low hallucinations she becomes anxious and agitated. She is pacing around the room. She keeps trying to leave the room and attempt to leave the hospital. She was convinced that she was going to be able to smoke while in the hospital. She states that she has nicotine replacements at home and thought that she could leave the hospital to go get her nicotine supplements instead of staying in the hospital. Patient is now on Librium of 25 mg q.6 and Ativan 2 mg and I just increased the dose to his acute 2 hour IV. The patient has been started on Haldol. She received 2 mg of IV Haldol almost 2 hours ago with no improvement in her symptoms. At this time I came to evaluate the patient the patient's CIWA score at the time of my calculation was between 22 and 25. Patient scored 2-3 points for tremor in her arms, her patient is anxious and panicked that she will be missing work, she is scoring between 5 to 7.that and she is agitated pacing back and forth scoring 7.that and is hallucinating that there are individuals in her room scoring 5 points for that as that hallucinations of people in her room is intermittent. Upon re-evaluation at the patient had received additional doses of Ativan 2 mg IV Haldol and Zyprexa the patient is still actively hallucinating and CIWA scores 23. The patient is become a safety risk to herself and is impulsive and has almost fallen multiple times in the room. I discussed the patient's case with the weight and balance control agent and he agrees that the patient would benefit from Precedex infusion. The patient will be transferred to the ICU. The patient received thiamine supplementation in the ER in daily thiamin supplementation has already been provided. 60 minute spent in critical care activities. Due to a high probability of clinically significant, life threatening deterioration, the patient required my highest level of preparedness to intervene emergently and I personally spent this critical care time directly and personally managing the patient. This critical care time included obtaining a history; examining the patient; pulse oximetry; ordering and review of studies; arranging urgent treatment with development of a management plan; evaluation of patient's response to treatment; frequent reassessment; and discussions with other providers. It was exclusive of separately billable procedures and treating other patients and teaching time. Please see Assessment and Plan section and the rest of the note for further information on patient assessment and treatment.
[2022-07-05] MEDS: OLANZapine 10 MG INJ VIAL IM (03:38)
[2022-07-05] MEDS: WATER, STERILE FOR INJECTION 10 ML VIAL XX (03:44)
--- NOTE | 2022-07-05 03:59 | PC.NURSE ---
0355 COOKING TEACHER FOUND PT WITH MORE CIGARETTES AND ANOTHER BLANKET WASHER. REINFORCED SMOKING RULES WITH PT. PT DID AGREE TO GIVE US THE CIGARETTES. I ALSO TOLD THE PT SHE WAS NO LONGER ABLE TO KEEP HER PURSE IN THE BED WITH HER. LOCKED PT PURSE AND BELONGINGS BAG IN CABINET.
--- NOTE | 2022-07-05 04:06 | PC.NURSE ---
0405 PT HAVING HALLUCINATIONS HANDED THE MEDICARE COMPLIANCE AUDITOR A PEN STATING HERE IS THIS BANANA . PT THEN GOT OUT OF BED STATING SHE HAD TO USE THE RESTROOM SOON AFTER ENTERING THE BATHROOM I HEARD THE SHOWER RUNNING AND PT ATTEMPTING TO GET IN. I TURNED THE SHOWER OFF AND INSTRUCTED THE PT TO GET BACK IN BED. AT THAT TIME SHE ATTEMPTED TO RUN OUT OF THE ROOM. I JUMPED IN FRONT OF THE PT TO STOP HER AND SHE STATED SHE NEEDED TO GET TO WORK SO SHE DOES NOT GET FIRED. I ONCE AGAIN TOLD HER SHE IS IN THE HOSPITAL AND WILL NOT BE LEAVING DUE TO HER WITHDRAW SYMPTOMS.
--- NOTE | 2022-07-05 04:22 | PC.NURSE ---
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 PT PROCEEDED TO TAKE THE BP CUFF OFF THE END OF THE BED AND LOOK AT IT IF SHE WAS READING IT LIKE A PIECE OF PAPER. I REORIENTED THE PT AGAIN AND SHE RESPONDED THAT SHE NEEDED TO GET A NEEDLE TO GET INTO THE CAR WITH VERY IMPORTANT PEOPLE . PT CONTINUES TO TRY TO GET OUT OF BED AND WALK OUT OF THE ROOM.
--- NOTE | 2022-07-05 04:58 | PC.NURSE ---
0458 PT PRETENDING TO SMOKE A CIGARETTE. PT JUMPED UP AND STOOD IN THE BED ATTEMPTING TO STAND ON BEDSIDE TABLE. PT ACTIVELY HALLUCINATING STATING SHE IS SEEING AN ANIMAL STANDING NEXT TO ME.
--- NOTE | 2022-07-05 05:28 | PC.NURSE ---
[facility] FAXED TO ICU
[2022-07-05 05:48] LABS: Basophils Absolute Auto 0.1 K/mm3 (0.0-0.1); Basophils Percent Auto 0.5 % (0.2-1.2); Eosinophils Absolute Auto 0.1 K/mm3 (0-0.3); Eosinophils Percent Auto 0.7 % (0-4.4); Hemoglobin 13.5 g/dL (12.0-15.0); Immature Granulocyte Absolute 0.02 K/mm3 (0.00-0.031); Immature Granulocyte Percent A 0.2 % (0-0.5); Mean Corpuscular HGB Conc 32.9 g/dl (32-36); Mean Corpuscular Hemoglobin 33.1 pg (26-34); Mean Corpuscular Volume 100.5 fl (80-100); Mean Platelet Volume 8.5 fl (7.4-10.4); Monocytes Absolute Auto 0.6 K/mm3 (0.1-0.6); Monocytes Percent Auto 6.7 % (2.6-8.5); Neutrophils Absolute Auto 6.1 K/mm3 (1.3-6.7); Neutrophils Percent Auto 65.9 % (45.5-73.1); Platelet Count Result 406 k/mm3 (150-375); Red Blood Count 4.08 M/mm3 (4.2-5.4); Red Cell Distribution Width 12.5 % (11.5-14.5); White Blood Count 9.2 K/mm3 (4.5-10.0)
--- NOTE | 2022-07-05 05:51 | PC.NURSE ---
TRANSFERRED PT TO ICU 3
[2022-07-05] MEDS: dexmedeTOMIDine 400 MCG/100 ML 400 MCG/100 ML BAG IV CONT (06:03)
[2022-07-05 06:08] LABS: Alanine Aminotransferase 25 U/L (6-35); Albumin Level 4.4 g/dL (3.5-5.1); Alkaline Phosphatase 48 U/L (38-126); Anion Gap 7 mmol/L (8-16); Aspartate Amino Transferase 32 U/L (14-36); Blood Urea Nitrogen 4 mg/dL (7-17); Calcium 8.6 mg/dL (8.4-10.2); Carbon Dioxide 27 mmol/L (22-30); Chloride 106 mmol/L (98-107); Estimated CRCL calculation 97 ml/min; Estimated Glomerular Filt Rate > 60; Glucose 103 mg/dL (65-110); Magnesium 2.4 mg/dL (1.6-2.3); Phosphorus 2.3 mg/dL (2.5-4.5); Potassium 3.1 mmol/L (3.4-5.0); Sodium 140 mmol/L (137-145)
--- NOTE | 2022-07-05 06:13 | PC.NURSE ---
This patient, Micaela Worthy, was received from [ [facility]] on 07/05/22 at 0613. Patient/family oriented to unit policies and routines
[2022-07-05] MEDS: LACTATED RINGERS 1,000 ML 999 ML IV CONT (07:25)
[2022-07-05] MEDS: PANTOPRAZOLE SODIUM IV 40 MG VIAL IV PUSH ×2 (08:07→21:00)
[2022-07-05] MEDS: THIAMINE HCL 200 MG/2 ML VIAL 100 MG IV PUSH (08:08)
[2022-07-05] MEDS: POTASSIUM CHLORIDE INJ 40 MEQ in SODIUM CHLORIDE 0.9% IV 500 ML 130 MEQ IVPB (08:36)
[2022-07-05] MEDS: dexmedeTOMIDine 400 MCG/100 ML 400 MCG/100 ML BAG 19.43 MCG IV CONT (10:47)
[2022-07-05] MEDS: SODIUM CHLORIDE 0.9% IV 1,000 ML 999 ML IV CONT (10:49)
--- NOTE | 2022-07-05 11:39 | PM.IMPN ---
Progress Note: A&P Assessment and Plan (1) Alcohol withdrawal syndrome: Code(s): F10.939 - Alcohol use, unspecified with withdrawal, unspecified Status: Acute Assessment and Plan: Initiate CIWA protocol. She has been started on scheduled Librium with Ativan available for breakthrough symptoms. On discharge she is going to be checking into a rehab facility. (2) Epigastric pain: Code(s): R10.13 - Epigastric pain Status: Acute Assessment and Plan: She reports increasing GERD symptoms recently and had dark emesis this morning. She has been started on pantoprazole. 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 (4) Depression with anxiety: Code(s): F41.8 - Other specified anxiety disorders Status: Acute Assessment and Plan: Continue quetiapine. Subjective Date/time seen: 07/05/22 11:39 Patient is resting. Exam Narrative: General: Mildly ill-appearing female sitting up in bed. Weight: 54.4 kg. BMI: 19.4. HEENT: PERRL, EOMI. Sclera anicteric. Conjunctiva mildly injected. Tacky mucous membranes. Neck: Supple. Respiratory: Lungs are clear to auscultation bilaterally. Cardiovascular: Regular rate and rhythm with S1-S2. Gastrointestinal: Abdomen is soft and nondistended with positive bowel sounds. She is tender to palpation epigastric region. No guarding or rebound tenderness. Skin: Warm and dry. No rash or lesions on limited exam. Extremities: No cyanosis, clubbing, or edema. Radial and pedal pulses intact. Neurological: Alert. Cranial nerves 2-12 are grossly intact. No tremors. no gross focal deficits to casual conversation. Psychiatric: Cooperative. Depressed mood and flat affect. Poor eye contact. Objective Data Vital Signs Vital Signs: Vital Signs - 24 hr 07/04/22 11:51 07/04/22 12:03 07/04/22 14:07 Temperature 99.1 F Pulse Rate 104 H 103 H 69 Pulse Rate [Monitor] Respiratory Rate 16 13 18 Blood Pressure 130/96 H 140/97 H 128/89 Pulse Oximetry 96 100 100 Oxygen Delivery 07/04/22 12:03 07/04/22 12:04 07/04/22 12:15 Temperature Pulse Rate 95 100 107 H Pulse Rate [Monitor] Respiratory Rate 11 L 16 11 L Blood Pressure 140/97 H Pulse Oximetry 100 100 99 Oxygen Delivery 07/04/22 12:30 07/04/22 12:36 07/04/22 12:45 Temperature Pulse Rate 95 96 100 Pulse Rate [Monitor] Respiratory Rate 12 16 17 Blood Pressure 128/97 H 133/97 H Pulse Oximetry 100 100 100 Oxygen Delivery 07/04/22 12:46 07/04/22 13:00 07/04/22 13:15 Temperature Pulse Rate 91 85 91 Pulse Rate [Monitor] Respiratory Rate 24 H 15 18 Blood Pressure Pulse Oximetry 100 100 Oxygen Delivery 07/04/22 13:30 07/04/22 13:31 07/04/22 13:45 Temperature Pulse Rate 80 95 85 Pulse Rate [Monitor] Respiratory Rate 26 H 29 H 17 Blood Pressure 128/89 Pulse Oximetry Oxygen Delivery 07/04/22 14:03 07/04/22 14:15 07/04/22 14:30 Temperature Pulse Rate 99 106 H Pulse Rate [Monitor] Respiratory Rate 14 Blood Pressure Pulse Oximetry 99 100 100 Oxygen Delivery 07/04/22 14:45 07/04/22 15:00 07/04/22 15:15 Temperature Pulse Rate 95 94 93 Pulse Rate [Monitor] Respiratory Rate 24 H 18 23 H Blood Pressure Pulse Oximetry 100 100 100 Oxygen Delivery 07/04/22 15:30 07/04/22 15:45 07/04/22 16:00 Temperature Pulse Rate 84 85 90 Pulse Rate [Monitor] Respiratory Rate 21 H 15 20 Blood Pressure Pulse Oximetry 100 100 100 Oxygen Delivery 07/04/22 16:15 07/04/22 16:30 07/04/22 16:45 Temperature Pulse Rate 78 75 73 Pulse Rate [Monitor] Respiratory Rate 12 19 Blood Pressure Pulse Oximetry 100 100 100 Oxygen Delivery 07/04/22 17:00 07/04/22 18:13 07/04/22 18:13 Temperature 98.1 F Pulse Rate 67 68
[2022-07-05] MEDS: THIAMINE HCL INJ 100 MG, FOLIC ACID INJ 1 MG, MAGNESIUM SULFATE INJ 1 GM, MULTIVITAMINS... IVPB (12:06)
--- NOTE | 2022-07-05 12:53 | WPDCNINT ---
Assessment and Plan Assessment and plan (1) Alcohol withdrawal: Qualifiers: Complication of substance-induced condition: uncomplicated Qualified Code(s): F10.930 - Alcohol use, unspecified with withdrawal, uncomplicated Code(s): F10.939 - Alcohol use, unspecified with withdrawal, unspecified Status: Acute Assessment and Plan: Patient presented with alcohol withdrawal symptoms of tachycardia, hallucinations, tremors, anxiety. Last drink was 24 hours prior to arrival in the ER on 07/04/2022 -overnight patient worsened on the medical floor and was transferred to the ICU for Precedex infusion as his CIWA scores was significantly elevated with increasing anxiety, agitation/combativeness, more hallucinations and feeling of insects crawling over her. -patient currently on Precedex infusion -p.r.n. Ativan and Haldol -monitor QT interval closely -patient has been given 2 L IV fluids -currently protecting airway and is on room air with adequate O2 sats -started patient on daily banana bag for 3 days (2) Depression with anxiety: Code(s): F41.8 - Other specified anxiety disorders Status: Acute Assessment and Plan: History of depression and anxiety -will hold home Xanax for now (3) Hypophosphatemia: Code(s): E83.39 - Other disorders of phosphorus metabolism Status: Acute Assessment and Plan: Replace potassium and phosphorus (4) Epigastric pain: Code(s): R10.13 - Epigastric pain Status: Acute Assessment and Plan: Lipase level was 58 on admission -could be related to GERD -on Protonix IV q.12 hours Plan DVT prophylaxis: SCDs Stress ulcer prophylaxis: Protonix Nutrition: Regular diet when able Code Status: Full code Critical Care Time Spent: 44 minutes Due to a high probability of clinically significant, life threatening deterioration, the patient required my highest level of preparedness to intervene emergently and I personally spent this critical care time directly and personally managing the patient. This critical care time included obtaining a history; examining the patient; pulse oximetry; ordering and review of studies; arranging urgent treatment with development of a management plan; evaluation of patient's response to treatment; frequent reassessment; and discussions with other providers. It was exclusive of separately billable procedures and treating other patients and teaching time. Please see Assessment and Plan section and the rest of the note for further information on patient assessment and treatment This dictation may have been done utilizing a voice recognition system. Attempts have been made to correct errors. However, there may be uncorrected grammatical, spelling, and recognitions errors present. Deputy [employer] Consult Note Consult date: 07/05/22 Reason for consult: Alcohol withdrawal/intoxication, hallucinations, delirium and combative HPI: Micaela Worthy is a 47 year old female with past medical history of alcohol abuse, alcohol withdrawal, history of seizures due to alcohol withdrawal, suicidal behavior, anxiety, depression, asthma presented the ED on 07/04/2022 with complains of alcohol withdrawal symptoms with tachycardia, anxiety, tremulous, vomiting, hallucinations. Her last drink was 24 hours prior to arrival to the ED. she was admitted to the medical floor and was transferred storm sash maker on 07/05 to the ICU for decrease in CIWA scores, increasing anxiety requiring multiple doses of Ativan, Haldol and Zyprexa. Patient was started on Precedex infusion in the ICU and was restrained due to being combative and severely anxious. She also had symptoms of hallucinations and formication (feeling of insects crawling over her). Patient seen examined in the ICU this morning, his well sedated with Precedex infusion, also received some Haldol prior to seeing her by hospitalist. Patient is hemodynamically stable, protecting her airway, good O2
[2022-07-05] MEDS: dexmedeTOMIDine 400 MCG/100 ML 400 MCG/100 ML BAG 5.18 MCG IV CONT (18:05)
[2022-07-06] VITALS (13 sets, daily range): BP systolic 87–117; BP diastolic 62–96; PULSE 60–106; RESP 20–26; TEMP 36.9–37.7; O2SAT 99–100; BMI 18.2
[2022-07-06] MEDS: LORazepam INJ (*CRX) 2 MG/ML VIAL IV PUSH ×8 (03:29→20:19)
[2022-07-06 04:28] LABS: Basophils Absolute Auto 0.1 K/mm3 (0.0-0.1); Basophils Percent Auto 0.7 % (0.2-1.2); Eosinophils Absolute Auto 0.2 K/mm3 (0-0.3); Eosinophils Percent Auto 1.7 % (0-4.4); Hematocrit 38.3 % (37.0-47.0); Hemoglobin 12.7 g/dL (12.0-15.0); Immature Granulocyte Absolute 0.02 K/mm3 (0.00-0.031); Immature Granulocyte Percent A 0.2 % (0-0.5); Lymphocytes Percent Auto 27.2 % (18.3-44.2); Mean Corpuscular HGB Conc 33.2 g/dl (32-36); Mean Corpuscular Hemoglobin 33.2 pg (26-34); Mean Corpuscular Volume 100.3 fl (80-100); Mean Platelet Volume 8.5 fl (7.4-10.4); Monocytes Absolute Auto 0.5 K/mm3 (0.1-0.6); Monocytes Percent Auto 5.5 % (2.6-8.5); Neutrophils Absolute Auto 5.9 K/mm3 (1.3-6.7); Neutrophils Percent Auto 64.7 % (45.5-73.1); Platelet Count Result 324 k/mm3 (150-375); Red Blood Count 3.82 M/mm3 (4.2-5.4); Red Cell Distribution Width 12.4 % (11.5-14.5); White Blood Count 9.2 K/mm3 (4.5-10.0)
[2022-07-06 04:38] LABS: Alanine Aminotransferase 21 U/L (6-35); Albumin Level 3.4 g/dL (3.5-5.1); Alkaline Phosphatase 43 U/L (38-126); Anion Gap 4 mmol/L (8-16); Aspartate Amino Transferase 24 U/L (14-36); Bilirubin,Total 0.6 mg/dL (0.2-1.3); Blood Urea Nitrogen 2 mg/dL (7-17); Carbon Dioxide 22 mmol/L (22-30); Chloride 111 mmol/L (98-107); Estimated CRCL calculation 97 ml/min; Estimated Glomerular Filt Rate > 60; Glucose 83 mg/dL (65-110); Lipase 172 U/L (23-300); Magnesium 2.3 mg/dL (1.6-2.3); Phosphorus 2.6 mg/dL (2.5-4.5); Potassium 3.4 mmol/L (3.4-5.0); Sodium 137 mmol/L (137-145)
[2022-07-06 04:39] LABS: INR 1.1; Partial Thromboplastin Time 25.5 SECONDS (22.3-36.8)
[2022-07-06] MEDS: THIAMINE HCL INJ 100 MG, FOLIC ACID INJ 1 MG, MAGNESIUM SULFATE INJ 1 GM, MULTIVITAMINS... IVPB (08:37)
[2022-07-06] MEDS: PANTOPRAZOLE SODIUM IV 40 MG VIAL IV PUSH ×2 (08:38→20:18)
[2022-07-06] MEDS: ONDANSETRON INJ 4 MG/2 ML VIAL IV PUSH ×2 (10:19→17:29)
[2022-07-06] MEDS: chlordiazePOXIDE (*CRX) 25 MG CAPSULE 50 MG PO ×3 (10:57→20:19)
--- NOTE | 2022-07-06 11:12 | WPDINTPN ---
Progress Note: A&P Assessment and Plan (1) Alcohol withdrawal: Qualifiers: Complication of substance-induced condition: uncomplicated Qualified Code(s): F10.930 - Alcohol use, unspecified with withdrawal, uncomplicated Code(s): F10.939 - Alcohol use, unspecified with withdrawal, unspecified Status: Acute Assessment and Plan: Patient presented with alcohol withdrawal symptoms of tachycardia, hallucinations, tremors, anxiety. Last drink was 24 hours prior to arrival in the ER on 07/04/2022 -07/05: overnight patient worsened on the medical floor and was transferred to the ICU for Precedex infusion as his CIWA scores was significantly elevated with increasing anxiety, agitation/combativeness, more hallucinations and feeling of insects crawling over her. Patient received adequate oral IV fluids -patient OFF on Precedex infusion -p.r.n. Ativan -is significantly more awake, alert, talking, no hallucinations, still complains of tremors and anxious -On daily banana bag for 3 days (2) Depression with anxiety: Code(s): F41.8 - Other specified anxiety disorders Status: Acute Assessment and Plan: History of depression and anxiety -will hold home Xanax for now (3) Hypophosphatemia: Code(s): E83.39 - Other disorders of phosphorus metabolism Status: Acute Assessment and Plan: Replace potassium (4) Epigastric pain: Code(s): R10.13 - Epigastric pain Status: Acute Assessment and Plan: Lipase level was 58 on admission -could be related to GERD -on Protonix IV q.12 hours -consulted GI as patient complains of hematemesis and melena -hemoglobin is normal Plan DVT prophylaxis: SCDs Stress ulcer prophylaxis: Protonix Nutrition: Regular diet when able Code Status: Full code Critical Care Time Spent: 32 minutes Due to a high probability of clinically significant, life threatening deterioration, the patient required my highest level of preparedness to intervene emergently and I personally spent this critical care time directly and personally managing the patient. This critical care time included obtaining a history; examining the patient; pulse oximetry; ordering and review of studies; arranging urgent treatment with development of a management plan; evaluation of patient's response to treatment; frequent reassessment; and discussions with other providers. It was exclusive of separately billable procedures and treating other patients and teaching time. Please see Assessment and Plan section and the rest of the note for further information on patient assessment and treatment This dictation may have been done utilizing a voice recognition system. Attempts have been made to correct errors. However, there may be uncorrected grammatical, spelling, and recognitions errors present. Subjective Date/time seen: 07/06/22 11:12 Interval history: Reason for consult: Alcohol withdrawal/intoxication, hallucinations, delirium and combative 07/06/2022: patient seen and examined in the ICU. Is more awake, alert and oriented this am. She does complain of tremors, but no hallucinations. She is complaining of nausea and abdominal discomfort. On room air with adequate O2 sats, OFF Precedex infusion. hemodynamically stable, adequate UO Review of Systems Review of Systems: All systems reviewed & are unremarkable except as noted in HPI and below Exam Narrative: General: Young female in no acute distress at this time HEENT:? Pupils are equal and reactive, sclerae is clear Neck:? Supple Respiratory:? Clear to auscultation bilaterally Cardiac:? S1-S2 normal, regular rate and rhythm Abdomen:? Soft, epigastric tenderness, nondistended, hypoactive bowel sounds Extremities:? No edema, palpable pedal pulses Neuro:? Patient is more awake this morning, alert, oriented, follows simple commands. Does complain of tremors but no hallucinations Skin:? No skin lesions noted Psych:? Anxi
--- NOTE | 2022-07-06 11:34 | PM.IMPN ---
Progress Note: A&P Assessment and Plan (1) Alcohol withdrawal: Qualifiers: Complication of substance-induced condition: uncomplicated Qualified Code(s): F10.930 - Alcohol use, unspecified with withdrawal, uncomplicated Code(s): F10.939 - Alcohol use, unspecified with withdrawal, unspecified Status: Acute Assessment and Plan: Continue CIWA protocol. No seizure activity. (2) Depression with anxiety: Code(s): F41.8 - Other specified anxiety disorders Status: Acute Assessment and Plan: History of depression and anxiety -will hold home Xanax for now (3) Hypophosphatemia: Code(s): E83.39 - Other disorders of phosphorus metabolism Status: Acute Assessment and Plan: Replace potassium and phosphorus (4) Epigastric pain: Code(s): R10.13 - Epigastric pain Status: Acute Assessment and Plan: Lipase level was 58 on admission -could be related to GERD -on Protonix IV q.12 hours Subjective Date/time seen: 07/06/22 11:34 No complaints Awake and alert. Exam Narrative: General: Young female in no acute distress at this time HEENT:? Pupils are equal and reactive, sclerae is clear Neck:? Supple Respiratory:? Clear to auscultation bilaterally Cardiac:? S1-S2 normal, regular rate and rhythm Abdomen:? Soft, epigastric tenderness, nondistended, hypoactive bowel sounds Extremities:? No edema, palpable pedal pulses Neuro:? Patient is more awake this morning, alert, oriented, follows simple commands. Does complain of tremors but no hallucinations Skin:? No skin lesions noted Psych:? Anxious, no hallucination Objective Data Vital Signs Vital Signs: Vital Signs - 24 hr 07/05/22 12:05 07/05/22 12:00 07/05/22 12:00 Temperature 96.4 F L Pulse Rate 44 L 46 L Pulse Rate [Monitor] Respiratory Rate 19 19 Blood Pressure 135/101 H Pulse Oximetry 95 Oxygen Delivery Room Air 07/05/22 13:05 07/05/22 14:05 07/05/22 14:00 Temperature 96 F L Pulse Rate 46 L 42 L 44 L Pulse Rate [Monitor] Respiratory Rate 19 19 19 Blood Pressure 139/101 H Pulse Oximetry 97 Oxygen Delivery 07/05/22 14:35 07/05/22 12:00 07/05/22 14:00 Temperature Pulse Rate 44 L 47 L 43 L Pulse Rate [Monitor] Respiratory Rate 19 Blood Pressure Pulse Oximetry Oxygen Delivery 07/05/22 15:05 07/05/22 15:35 07/05/22 16:06 Temperature Pulse Rate 49 L 46 L 48 L Pulse Rate [Monitor] Respiratory Rate 18 19 18 Blood Pressure Pulse Oximetry Oxygen Delivery 07/05/22 16:00 07/05/22 16:00 07/05/22 16:00 Temperature 96.6 F L Pulse Rate 45 L 46 L Pulse Rate [Monitor] Respiratory Rate 19 Blood Pressure 145/100 H Pulse Oximetry 99 Oxygen Delivery Room Air 07/05/22 16:35 07/05/22 17:05 07/05/22 17:35 Temperature Pulse Rate 46 L 48 L 48 L Pulse Rate [Monitor] Respiratory Rate 17 19 17 Blood Pressure Pulse Oximetry Oxygen Delivery 07/05/22 18:00 07/05/22 18:00 07/05/22 18:05 Temperature 97.3 F L Pulse Rate 55 L 55 L 54 L Pulse Rate [Monitor] Respiratory Rate 17 17 Blood Pressure 135/94 H Pulse Oximetry 99 Oxygen Delivery 07/05/22 20:00 07/05/22 20:00 07/05/22 20:00 Temperature Pulse Rate 62 Pulse Rate [Monitor] 63 Respiratory Rate Blood Pressure 111/85 Pulse Oximetry 99 Oxygen Delivery Room Air 07/05/22 20:00 07/05/22 22:00 07/05/22 22:00 Temperature 98.3 F 99 F Pulse Rate 63 63 63 Pulse Rate [Monitor] Respiratory Rate 18 20 Blood Pressure 111/85 111/88 Pulse Oximetry 98 97 Oxygen Delivery 07/06/22 00:00 07/06/22 00:00 07/06/22 00:00 Temperature 99.1 F Pulse Rate 60 60 Pulse Rate [Monitor] 60 Respiratory Rate 20 Blood Pressure 98/71 L 98/71 L Pulse Oximetry 99 Oxygen Delivery 07/06/22 00:00 07/06/22 02:00 07/06/22 02:00 Temperature 98.5 F Pulse Rate 73 73 Pulse Rate [Monitor] Re
[2022-07-06] MEDS: POTASSIUM CHLORIDE 20 MEQ TABLET 40 MEQ PO (12:18)
--- NOTE | 2022-07-06 14:32 | WPDGICN ---
Assessment and Plan Assessment and plan (1) Epigastric pain: Code(s): R10.13 - Epigastric pain Status: Acute Assessment and Plan: probably gastritis/esophagitis from heavy drinking no pancreatitis, normal liver enzymes (2) Coffee ground emesis: Code(s): K92.0 - Hematemesis Status: Acute Assessment and Plan: iv protonix egd in am to assess (3) Alcohol withdrawal syndrome: Code(s): F10.939 - Alcohol use, unspecified with withdrawal, unspecified Status: Acute Assessment and Plan: precedex gtt management in icu thiamine, banana bag (4) Depression with anxiety: Code(s): F41.8 - Other specified anxiety disorders Status: Acute GI Consult Note Consult date/time: 07/06/22 14:32 Reason for consult: coffee ground emesis, epigastric pain HPI: Micaela Worthy is a 47 year old female with past medical history of alcohol abuse, alcohol withdrawal, history of seizures due to alcohol withdrawal, bipolar disorder who recently started drinking heavily again (she was abstinent but going through divorce). She came to ED with tachycardia, anxiety, tremulous, vomiting and having hallucinations, last drink was 24 hours prior to arrival to the ED, initially admitted to the medical floor but became more anxious despite medical treatment and transferred to ICU, started on precedex drip and now less anxious. She has been having epigastric pain for 1 year, she was planning to have EGD as outpatient but never had the change, has been using OTC medications for gerd. Yesterday with nausea and noted coffee ground emesis with dark stool. Hb 12, normal bun. Liver enzymes and lipase normal. Review of Systems Constitutional: Constitutional: Reports lethargy Eyes: Eyes: Denies blurry vision ENT: Reports Normal hearing present Cardiovascular: Cardiovascular: Denies pedal edema Respiratory: Respiratory: Denies cough Gastrointestinal: Gastrointestinal: Reports nausea and Reports vomiting Genitourinary: Genitourinary: Denies hematuria Musculoskeletal: Musculoskeletal: Denies neck pain Integumentary/Breasts: Skin/Breast: Denies dry skin Neurologic: Reports confusion Psychiatric: Psychiatric: Reports anxiety and Reports behavioral changes [facility] Past Medical History Medical History (Updated 07/06/22 @ 14:37 by Pedro Shrestha MD) Alcohol abuse Anxiety Asthma Coffee ground emesis Depression History of seizure due to alcohol withdrawal Suicide attempt (09/2019) Intentional overdose alcohol, Wellbutrin, Ativan. Surgical History Surgical History History of breast augmentation History of tonsillectomy Family History Family History Other Family history of pancreatic cancer Social History Social History Social History: Surrogate medical decision maker: Brady Ross, brother. Code status: Full code. Smoking packs per day: 0.5 Smoking cigarettes per day: 10.0 Years smoked: 10 Smoking pack-years: 5.00 Smoking status: Current every day smoker Tobacco type: cigarettes Smoking end date: 03/15/11 Alcohol intake: current Drinks per week: 70 Alcohol use details: Ten beers a day. Substance use: never Substance use type: prescription drug Lack of Transportation: No Lack of Food: Never True Current Housing: I Have Housing Concerned About Future Housing: No Difficulty Paying Gas/Electric Bills: No Difficulty Paying for Meds: No Currently Unemployed: No Education: Bachelor's Degree Difficulty w/ Childcare or Family Care: No Spiritual care concerns: No Meds Home Medications and Allergies Home Medications Medication Instructions Recorded Confirmed Type albuterol sulfate 90 mcg/actuation 2 puff inhalation Q6H PRN 09/29/19 07/04/22 His
[2022-07-06] MEDS: QUEtiapine FUMARATE 25 MG TABLET 50 MG PO (20:18)
[2022-07-07] VITALS (18 sets, daily range): BP systolic 83–125; BP diastolic 51–90; PULSE 66–92; RESP 15–24; TEMP 36.3–37.7; O2SAT 96–100
[2022-07-07] MEDS: LORazepam INJ (*CRX) 2 MG/ML VIAL IV PUSH ×3 (00:05→08:31)
[2022-07-07] MEDS: chlordiazePOXIDE (*CRX) 25 MG CAPSULE 50 MG PO ×4 (03:04→22:01)
[2022-07-07] MEDS: ACETAMINOPHEN 325 MG TABLET 650 MG PO (03:05)
[2022-07-07 04:31] LABS: Basophils Percent Auto 0.5 % (0.2-1.2); Eosinophils Absolute Auto 0.2 K/mm3 (0-0.3); Hematocrit 36.1 % (37.0-47.0); Hemoglobin 12.3 g/dL (12.0-15.0); Immature Granulocyte Absolute 0.02 K/mm3 (0.00-0.031); Immature Granulocyte Percent A 0.2 % (0-0.5); Lymphocytes Absolute Auto 2.66 K/mm3 (0.9-3.2); Lymphocytes Percent Auto 31.2 % (18.3-44.2); Mean Corpuscular HGB Conc 34.1 g/dl (32-36); Mean Corpuscular Hemoglobin 33.2 pg (26-34); Mean Corpuscular Volume 97.3 fl (80-100); Mean Platelet Volume 8.7 fl (7.4-10.4); Monocytes Absolute Auto 0.5 K/mm3 (0.1-0.6); Monocytes Percent Auto 5.6 % (2.6-8.5); Neutrophils Absolute Auto 5.2 K/mm3 (1.3-6.7); Neutrophils Percent Auto 60.5 % (45.5-73.1); Platelet Count Result 335 k/mm3 (150-375); Red Blood Count 3.71 M/mm3 (4.2-5.4); Red Cell Distribution Width 12.4 % (11.5-14.5); White Blood Count 8.5 K/mm3 (4.5-10.0)
[2022-07-07 04:41] LABS: Prothrombin Time 13.2 Seconds (11.1-14.7)
[2022-07-07 04:42] LABS: Partial Thromboplastin Time 25.4 SECONDS (22.3-36.8)
[2022-07-07 04:45] LABS: Alanine Aminotransferase 20 U/L (6-35); Albumin Level 3.7 g/dL (3.5-5.1); Alkaline Phosphatase 42 U/L (38-126); Anion Gap 5 mmol/L (8-16); Aspartate Amino Transferase 25 U/L (14-36); Bilirubin,Total 0.5 mg/dL (0.2-1.3); Blood Urea Nitrogen 7 mg/dL (7-17); Calcium 8.1 mg/dL (8.4-10.2); Carbon Dioxide 23 mmol/L (22-30); Chloride 109 mmol/L (98-107); Estimated CRCL calculation 96 ml/min; Estimated Glomerular Filt Rate > 60; Glucose 87 mg/dL (65-110); Lipase 126 U/L (23-300); Magnesium 2.3 mg/dL (1.6-2.3); Phosphorus 3.3 mg/dL (2.5-4.5); Potassium 3.8 mmol/L (3.4-5.0); Sodium 137 mmol/L (137-145)
[2022-07-07] MEDS: ONDANSETRON INJ 4 MG/2 ML VIAL IV PUSH ×3 (05:05→22:20)
[2022-07-07] MEDS: THIAMINE HCL INJ 100 MG, FOLIC ACID INJ 1 MG, MAGNESIUM SULFATE INJ 1 GM, MULTIVITAMINS... IVPB (08:22)
[2022-07-07] MEDS: PANTOPRAZOLE SODIUM IV 40 MG VIAL IV PUSH (08:22)
--- NOTE | 2022-07-07 09:46 | WPDINTPN ---
Progress Note: A&P Assessment and Plan (1) Alcohol withdrawal: Qualifiers: Complication of substance-induced condition: uncomplicated Qualified Code(s): F10.930 - Alcohol use, unspecified with withdrawal, uncomplicated Code(s): F10.939 - Alcohol use, unspecified with withdrawal, unspecified Status: Acute Assessment and Plan: Patient presented with alcohol withdrawal symptoms of tachycardia, hallucinations, tremors, anxiety. Last drink was 24 hours prior to arrival in the ER on 07/04/2022 -07/05: overnight patient worsened on the medical floor and was transferred to the ICU for Precedex infusion as his CIWA scores was significantly elevated with increasing anxiety, agitation/combativeness, more hallucinations and feeling of insects crawling over her. Patient received adequate oral IV fluids -patient OFF on Precedex infusion -p.r.n. Ativan -is significantly more awake, alert, talking, no hallucinations, still complains of tremors and anxious -On daily banana bag for 3 days (2) Depression with anxiety: Code(s): F41.8 - Other specified anxiety disorders Status: Acute Assessment and Plan: History of depression and anxiety - will start pt on Scheduled xanax once she gets back from EGD (3) Hypophosphatemia: Code(s): E83.39 - Other disorders of phosphorus metabolism Status: Acute Assessment and Plan: potassium and phosphous are WNL (4) Epigastric pain: Code(s): R10.13 - Epigastric pain Status: Acute Assessment and Plan: Lipase level was 58 on admission -could be related to GERD -on Protonix IV q.12 hours -consulted GI as patient complains of hematemesis and melena, EGD scheduled for today 07/07 -hemoglobin is normal Plan DVT prophylaxis: SCDs Stress ulcer prophylaxis: Protonix Nutrition: NPO Code Status: Full code Critical Care Time Spent: 32 minutes Due to a high probability of clinically significant, life threatening deterioration, the patient required my highest level of preparedness to intervene emergently and I personally spent this critical care time directly and personally managing the patient. This critical care time included obtaining a history; examining the patient; pulse oximetry; ordering and review of studies; arranging urgent treatment with development of a management plan; evaluation of patient's response to treatment; frequent reassessment; and discussions with other providers. It was exclusive of separately billable procedures and treating other patients and teaching time. Please see Assessment and Plan section and the rest of the note for further information on patient assessment and treatment This dictation may have been done utilizing a voice recognition system. Attempts have been made to correct errors. However, there may be uncorrected grammatical, spelling, and recognitions errors present. Subjective Date/time seen: 07/07/22 09:46 Interval history: Reason for consult: Alcohol withdrawal/intoxication, hallucinations, delirium and combative 08/01/2022: Patient seen and examined the ICU is awake, alert, oriented. She states she is very anxious due to her endoscopy procedure today. She is also complaining of nausea but no vomiting. According the bedside RN she has been asking for Zofran and Ativan around the clock. Patient is hemodynamically stable, on room air with adequate O2 sats, very good urine output. No shortness of breath or chest pain Review of Systems Review of Systems: All systems reviewed & are unremarkable except as noted in HPI and below Exam Narrative: General: Young female in no acute distress at this time HEENT:? Pupils are equal and reactive, sclerae is clear Neck:? Supple Respiratory:? Clear to auscultation bilaterally Cardiac:? S1-S2 normal, regular rate and rhythm Abdomen:? Soft, epigastric tenderness, nondistended, hypoactive bowel sounds Extremities:? No edema, palpable pedal puls
--- NOTE | 2022-07-07 10:57 | PM.IMPN ---
Progress Note: A&P Assessment and Plan (1) Alcohol withdrawal: Qualifiers: Complication of substance-induced condition: uncomplicated Qualified Code(s): F10.930 - Alcohol use, unspecified with withdrawal, uncomplicated Code(s): F10.939 - Alcohol use, unspecified with withdrawal, unspecified Status: Acute Assessment and Plan: Try to wean off Ativan. No seizure activity. Appears less anxious. (2) Depression with anxiety: Code(s): F41.8 - Other specified anxiety disorders Status: Acute Assessment and Plan: History of depression and anxiety - will start pt on Scheduled xanax once she gets back from EGD (3) Hypophosphatemia: Code(s): E83.39 - Other disorders of phosphorus metabolism Status: Acute Assessment and Plan: potassium and phosphous are WNL (4) Epigastric pain: Code(s): R10.13 - Epigastric pain Status: Acute Assessment and Plan: Plan for EGD Subjective Date/time seen: 07/07/22 10:57 Doing much better. Still requiring Ativan. Exam Narrative: General: Young female in no acute distress at this time HEENT:? Pupils are equal and reactive, sclerae is clear Neck:? Supple Respiratory:? Clear to auscultation bilaterally Cardiac:? S1-S2 normal, regular rate and rhythm Abdomen:? Soft, epigastric tenderness, nondistended, hypoactive bowel sounds Extremities:? No edema, palpable pedal pulses Neuro:? Patient is more awake this morning, alert, oriented, follows simple commands. Does complain of tremors but no hallucinations Skin:? No skin lesions noted Psych:? Anxious, no hallucination Objective Data Vital Signs Vital Signs: Vital Signs - 24 hr 07/06/22 12:00 07/06/22 12:00 07/06/22 12:00 Temperature 100 F H Pulse Rate 84 106 H Pulse Rate [Monitor] 88 Respiratory Rate 20 Blood Pressure 117/96 H 117/96 H Pulse Oximetry 100 Oxygen Delivery 07/06/22 12:00 07/06/22 14:00 07/06/22 14:00 Temperature 100 F H Pulse Rate 78 73 Pulse Rate [Monitor] Respiratory Rate 24 H Blood Pressure 103/80 Pulse Oximetry 100 100 Oxygen Delivery Room Air 07/06/22 16:00 07/06/22 16:00 07/06/22 16:00 Temperature 99.8 F H Pulse Rate 89 Pulse Rate [Monitor] 88 Respiratory Rate 22 H Blood Pressure 111/84 111/84 Pulse Oximetry 100 100 Oxygen Delivery Room Air 07/06/22 16:00 07/06/22 18:00 07/06/22 18:00 Temperature 99.8 F H Pulse Rate 93 94 97 Pulse Rate [Monitor] Respiratory Rate 24 H Blood Pressure 112/78 Pulse Oximetry 100 Oxygen Delivery 07/06/22 20:00 07/06/22 20:00 07/06/22 20:00 Temperature 99.8 F H Pulse Rate 94 94 Pulse Rate [Monitor] 94 Respiratory Rate 22 H Blood Pressure 106/81 106/81 Pulse Oximetry 100 Oxygen Delivery 07/06/22 20:00 07/06/22 22:00 07/06/22 22:00 Temperature 100 F H Pulse Rate 102 H 102 H Pulse Rate [Monitor] Respiratory Rate 20 Blood Pressure 110/73 Pulse Oximetry 100 100 Oxygen Delivery Room Air 07/07/22 00:00 07/07/22 00:00 07/07/22 00:00 Temperature 99.8 F H Pulse Rate 88 88 Pulse Rate [Monitor] 88 Respiratory Rate 22 H Blood Pressure 108/76 108/76 Pulse Oximetry 100 Oxygen Delivery 07/07/22 00:00 07/07/22 01:58 07/07/22 02:00 Temperature 99.6 F Pulse Rate 73 73 Pulse Rate [Monitor] Respiratory Rate 20 Blood Pressure 109/78 Pulse Oximetry 100 100 Oxygen Delivery Room Air 07/07/22 04:00 07/07/22 04:00 07/07/22 04:00 Temperature 99.7 F H Pulse Rate 81 84 Pulse Rate [Monitor] 85 Respiratory Rate 24 H Blood Pressure 106/85 106/85 Pulse Oximetry 100 Oxygen Delivery 07/07/22 04:00 07/07/22 05:50 07/07/22 07:55 Temperature 99.3 F Pulse Rate 88 92 Pulse Rate [Monitor] Respiratory Rate 18 Blood Pressure 120/83 Pulse Oximetry 100 Oxygen Delivery Room Air Intake/Output Intake/Output: Intake & Output 07/04/2207/05
--- NOTE | 2022-07-07 11:51 | WPDANESEPPF ---
Anes - Initial Pre Proc Eval Procedure: Operation Date: 07/07/22 13:00 Proposed Procedures p Esophagogastroduodenoscopy - Pedro Shrestha MD Date/Time: 07/07/22 11:51 Surgeon: Justen Gerardo MD Pre Op Diagnosis: Alcohol withdrawl, hyponatremia, hypophosphatemia Patient Data Age: 47 Gender: F Height: 1.68 m Weight: 51 kg Last Vital Signs Temp 36.7 C 07/07/22 11:32 Pulse 78 07/07/22 11:32 Resp 15 07/07/22 11:32 BP 125/82 07/07/22 11:32 Pulse Ox 100 07/07/22 10:00 O2 Del Method Room Air 07/07/22 04:00 Allergies Allergy/AdvReac Type Severity Reaction Status Date / Time No Known Allergies Allergy Mild Verified 07/07/22 11:56 Home Medications Medication Instructions Recorded Confirmed Type albuterol sulfate 90 mcg/actuation 2 puff inhalation Q6H PRN 09/29/19 07/04/22 History aerosol inhaler Shortness Of Breath folic acid 1 mg tablet 1 mg PO DAILY #30 tabs 05/31/22 07/04/22 Rx thiamine HCl (vitamin B1) 100 mg 100 mg PO DAILY #30 tabs 05/31/22 07/04/22 Rx tablet (Vitamin B-1) alprazolam 1 mg tablet 1 mg PO Q4H PRN Withdrawal Symptoms 07/04/22 07/04/22 History sertraline 100 mg tablet 150 mg PO DAILY 07/05/22 07/05/22 History Laboratory Tests 07/07/22 07/07/22 07/07/22 04:21 04:22 04:22 WBC 8.5 K/mm3 K/mm3 (4.5-10.0) RBC 3.71 M/mm3 L M/mm3 (4.2-5.4) Hgb 12.3 g/dL g/dL (12.0-15.0) Hct 36.1 % L % (37.0-47.0) MCV 97.3 fl fl (80-100) MCH 33.2 pg pg (26-34) MCHC 34.1 g/dl g/dl (32-36) RDW 12.4 % % (11.5-14.5) Plt Count 335 k/mm3 k/mm3 (150-375) MPV 8.7 fl fl (7.4-10.4) Immature Gran % (Auto) 0.2 % % (0-0.5) Neut % (Auto) 60.5 % % (45.5-73.1) Lymph % (Auto) 31.2 % % (18.3-44.2) Collin % (Auto) 5.6 % % (2.6-8.5) Eos % (Auto) 2.0 % % (0-4.4) Baso % (Auto) 0.5 % % (0.2-1.2) Lymph # (Auto) 2.66 K/mm3 K/mm3 (0.9-3.2) Collin # (Auto) 0.5 K/mm3 K/mm3 (0.1-0.6) Eos # (Auto) 0.2 K/mm3 K/mm3 (0-0.3) Baso # (Auto) 0.0 K/mm3 K/mm3 (0.0-0.1) Abs Immat Gran (auto) 0.02 K/mm3 K/mm3 (0.00-0.031) Absolute Neuts (auto) 5.2 K/mm3 K/mm3 (1.3-6.7) Absolute Nucleated RBC 0.0 K/mm3 K/mm3 (0.0-0.012) Nucleated RBC % 0.0 % % (0.0-0.2) PT 13.2 Seconds Seconds (11.1-14.7) INR 1.0 APTT 25.4 SECONDS SECONDS (22.3-36.8) Sodium 137 mmol/L mmol/L (137-145) Potassium 3.8 mmol/L mmol/L (3.4-5.0) Chloride 109 mmol/L H mmol/L (98-107) Carbon Dioxide 23 mmol/L mmol/L (22-30) Anion Gap 5 mmol/L L mmol/L (8-16) BUN 7 mg/dL D mg/dL (7-17) Creatinine 0.50 mg/dL L mg/dL (0.7-1.0) Estim Creat Clear Calc 96 ml/min ml/min Estimated GFR > 60 (59 - ) Glucose 87 mg/dL mg/dL (65-110) Calcium 8.1 mg/dL L mg/dL (8.4-10.2) Phosphorus 3.3 mg/dL mg/dL (2.5-4.5) Magnesium 2.3 mg/dL mg/dL (1.6-2.3) Total Bilirubin 0.5 mg/dL mg/dL (0.2-1.3) AST 25 U/L U/L (14-36) ALT 20 U/L U/L (6-35) Alkaline Phosphatase 42 U/L U/L (38-126) Total Protein 6.0 g/dL L g/dL (6.3-8.2) Albumin 3.7 g/dL g/dL (3.5-5.1) Lipase 126 U/L U/L (23-300) Patient hx anesthesia problems: none Family hx anesthesia problems: none Results Review: All pre-operative results and documents have been reviewed as part of the pre-operative evaluation. [facility] Past Medical History Medical History (Updated 07/06/22 @ 14:37 by Pedro Shrestha MD) Alcohol abuse Anxiety Asthma Coffee ground emesis Depression History of seizure due to alcohol withdrawal Suicide attempt (09/2019) Intentional
[2022-07-07] MEDS: LACTATED RINGERS 1,000 ML 150 ML IV CONT (12:02)
--- NOTE | 2022-07-07 13:01 | SUR.PREOP ---
Urine test declined by MANAGER CARDI[employer] before going to procedure room.
[2022-07-07] MEDS: LORazepam INJ (*CRX) 2 MG/ML VIAL 1 MG IV PUSH ×2 (15:42→21:59)
--- NOTE | 2022-07-07 19:13 | PC.NURSE ---
This patient, Micaela Worthy, was transferred to [[id number]] on 07/07/22 at 1913. Personal belongings sent with patient. Report given to [June SILVA]. Appropriate documentation sent with patient.
[2022-07-07] MEDS: QUEtiapine FUMARATE 25 MG TABLET 50 MG PO (22:01)
[2022-07-08] VITALS: BP 111/74; BP 130/64; PULSE 61; PULSE 85; RESP 16; TEMP 36.7; O2SAT 100
[2022-07-08 02:33] VITALS: BP 130/64; PULSE 85
[2022-07-08] MEDS: LORazepam INJ (*CRX) 2 MG/ML VIAL 1 MG IV PUSH (06:23)
[2022-07-08] MEDS: ONDANSETRON INJ 4 MG/2 ML VIAL IV PUSH (06:24)
[2022-07-08] MEDS: chlordiazePOXIDE (*CRX) 25 MG CAPSULE 50 MG PO (06:25)
--- NOTE | 2022-07-08 07:50 | PM.DS ---
DS: Admitting Diagnosis Discharge Date 07/08/22 Admitting Diagnosis Alcohol Abuse with alcohol Withdrawal Abdominal Pain DS: Discharge Diagnosis Discharge Diagnosis (1) Epigastric pain: Code(s): R10.13 - Epigastric pain Status: Acute (2) History of alcoholism: Code(s): F10.21 - Alcohol dependence, in remission Status: Acute (3) Alcohol withdrawal syndrome: Code(s): F10.939 - Alcohol use, unspecified with withdrawal, unspecified Status: Acute (4) Depression with anxiety: Code(s): F41.8 - Other specified anxiety disorders Status: Acute DS: Summary Hospital Course Reason for hospitalization: Acute Alcohol Withdrawal Hospital Course: 47-year-old female with history of alcohol abuse, alcohol withdrawal syndrome including a withdrawal seizure, anxiety, depression, suicide attempt, and seizures which appear to be related to an intentional overdose who presented to the emergency department via EMS for evaluation of alcohol withdrawal, was admitted to ICU for precedex drip, GI was consulted for coffee ground emesis, abdominal pain,underwent EGD which was essentially unremarkable. Was started on PPI. Discharged to alcohol rehab program in stable condition. Status at Discharge Functional status at discharge: independent ambulation Overall status at discharge: patient is progressing back to baseline Time Spent with Patient Time attestation: Total time spent providing and/or coordinating discharge services: Time spent: Greater than 30 minutes Exam Narrative: General: Young female in no acute distress at this time HEENT:? Pupils are equal and reactive, sclerae is clear Neck:? Supple Respiratory:? Clear to auscultation bilaterally Cardiac:? S1-S2 normal, regular rate and rhythm Abdomen:? Soft, epigastric tenderness, nondistended, hypoactive bowel sounds Extremities:? No edema, palpable pedal pulses Neuro:? Patient is more awake this morning, alert, oriented, follows simple commands. Does complain of tremors but no hallucinations Skin:? No skin lesions noted Psych:? Anxious, no hallucination DS: Data Data Completed and Pending Pending studies at discharge: Pending at discharge 07/07/22 13:02 Surgical [PTH] Routine Discharge Plan Discharge Attending physician on discharge: Nallely Ling Consulting providers: Evelia Mcgee; Pedro Shrestha; Sonia Sanchez Discharging Clinician: Ling,Nallely Anticipated Discharge Date/Time: 07/08/22 07:36 Patient Disposition: Other Activity: as tolerated Diet: as tolerated and regular Patient Instructions: Antibiotic Form, How to Stop Smoking (DC) Stand Alone Forms: General Discharge Information Follow-up/Referrals: Pedro Shrestha MD [Physician] - 4 Weeks Discharge Medications: New quetiapine [Seroquel] 25 mg Tablet 50 mg PO HS Qty: 30 0RF pantoprazole 40 mg Tablet,Delayed Release (Dr/Ec) 40 mg PO QAM Qty: 30 0RF lorazepam [Ativan] 1 mg tablet 1 mg PO BID PRN (Reason: alcohol withdrawal) Qty: 10 0RF chlordiazepoxide HCl 25 mg capsule 25 mg PO TID Qty: 30 0RF Continued albuterol sulfate 90 mcg/actuation HFA aerosol inhaler 2 puff INHALATION Q6H PRN (Reason: Shortness Of Breath) folic acid 1 mg Tablet 1 mg PO DAILY Qty: 30 0RF thiamine HCl (vitamin B1) [Vitamin B-1] 100 mg tablet 100 mg PO DAILY Qty: 30 0RF sertraline 100 mg tablet 150 mg PO DAILY Discontinued alprazolam 1 mg tablet 1 mg PO Q4H PRN (Reason: Withdrawal Symptoms) Date of admission: 07/04/22 15:04 Primary Care Provider: Shruthi,Shelton Admitting Provider: Justen Gerardo Attending physician on admission: Justen Gerardo Condition: Stable [facility] Discharge Hospital Discharge: [id number] Hosp D/C >30 Min
[2022-07-08 08:00] VITALS: BP 130/64; PULSE 85
[2022-07-08] MEDS: PANTOPRAZOLE 40 MG TABLET PO (08:13)
== END 2022-07-08 08:30 | disposition other institution (70) | DRG 897 ==
LOC: ANHED 16:47 → ANH3MED 16:51 → ANHICU 07-05 05:52 → ANH3MED 07-07 19:15
PROVIDERS: Internal Medicine; Internal Medicine Gastroenterology; Physician Assistant; Admitting Provider Chiropractor; Emergency Provider Physician Assistant; PCP Student in an Organized Health Care Education/Training Program; Visit Provider Internal Medicine
PROC: 0DJ08ZZ Inspection of Upper Intestinal Tract, Via Natural or Artificial Opening Endoscopic (ICD-10-PCS; CPT 43235; principal; 2022-07-07 13:00)
DX: F10.131 Alcohol abuse with withdrawal delirium (principal); R44.3 Hallucinations, unspecified; K92.1 Melena; E83.39 Other disorders of phosphorus metabolism; R10.13 Epigastric pain; F41.8 Other specified anxiety disorders; F17.210 Nicotine dependence, cigarettes, uncomplicated; J45.909 Unspecified asthma, uncomplicated; K21.9 Gastro-esophageal reflux disease without esophagitis; R56.9 Unspecified convulsions; R25.1 Tremor, unspecified; Z91.51 Personal history of suicidal behavior
CPT/HCPCS: 36415; 80053; 80307; 81001; 82550; 82948; 83690; 83735; 84100; 85025; 85610; 85730; 87086; 88305; 93005; 96361; 96374; 96375; 96376; 99285; A9270; C9113; J0131; J1630; J2060; J2405; J2704; J3411; J3475; J3480; J7030; J7040; J7120; J7121

== ENCOUNTER 2022-09-17 15:47 | Emergency (ER) | payer BC, SELFPAY ==
[2022-09-17 15:55] VITALS: BP 137/98; PULSE 111; RESP 18; TEMP 36.4; O2SAT 98
--- NOTE | 2022-09-17 16:46 | PC.NURSE ---
No answer @ [id number], pt did not notify intake nurse of leaving ER.
--- NOTE | 2022-09-17 16:46 | PC.NURSE ---
pt called for 2nd time, not in lobby. will remove from wait list
== END 2022-09-17 16:55 | disposition left against medical advice (07) ==
LOC: ANHED 16:51
PROVIDERS: PCP Student in an Organized Health Care Education/Training Program
DX: F10.20 Alcohol dependence, uncomplicated (principal)
CPT/HCPCS: 99199

== ENCOUNTER 2022-09-17 17:53 | Emergency (ER) | payer BC, SELFPAY ==
[2022-09-17 17:54] VITALS: BP 112/87; PULSE 111; RESP 18; O2SAT 97
--- NOTE | 2022-09-17 18:47 | PC.NURSE ---
Patient notified ED typing secretary You're not doing anything for me so I'm going to leave . Before this RN could assess pt the patient walked out of the ER. Dr. Mott and ER special investigator notified.
--- NOTE | 2022-09-17 22:13 | ED.ALCOHOL ---
HPI - Alcohol General Chief Complaint: Alcohol Stated Complaint: etoh Time Seen by Provider: 09/17/22 18:03 Source: patient, RN notes reviewed and old records reviewed Mode of arrival: ambulatory Limitations: no limitations History of Present Illness HPI narrative: This is a 47 year old female with history of alcoholism and alcohol withdrawal who presents for evaluation to prevent seizures. PAtient states she had been sober for 72 days when she started drinking about on Wednesday. She tells me she only drinks 3 beers per day since Wednesday. She told triage she drinks 10 beers a day. She states she history of alcohol withdrawal seizures and her last episode was 5 years ago. She states her PCP started on ativan 1 mg bid last week to treat panic attacks but she had not discussed her drinking with him. She states she has come to ER today because she wants to stop drinking but she does not want to have seizure. Her last drink was 1 hour ago and she reports drinking 5 beers already today. She states she does not think she needs detox because she has not been drinking that heavily this week. She denies nausea, vomiting, abdominal pain, or withdrawal symptoms. Related Data Home Medications Medication Instructions Recorded Confirmed albuterol sulfate 90 mcg/actuation 2 puff inhalation Q6H PRN 09/29/19 07/04/22 aerosol inhaler Shortness Of Breath sertraline 100 mg tablet 150 mg PO DAILY 07/05/22 07/05/22 Allergies Allergy/AdvReac Type Severity Reaction Status Date / Time No Known Allergies Allergy Mild Verified 09/17/22 16:00 Review of Systems Constitutional: Constitutional: Denies weakness Cardiovascular: Cardiovascular: Denies syncope, Denies rapid heart rate, Denies irregular heart rhythm, Denies leg edema and Denies dyspnea Respiratory: Respiratory: Denies chest congestion, Denies hemoptysis, Denies excessive phlegm production and Denies dyspnea Gastrointestinal: Gastrointestinal: Denies abdominal pain, Denies hematochezia, Denies diarrhea and Denies vomiting Genitourinary: Genitourinary: Denies hematuria and Denies dysuria Musculoskeletal: Musculoskeletal: Denies joint swelling, Denies loss of height and Denies muscle weakness Neurologic: Denies syncope, Denies focal weakness and Denies weakness PMFSH Past Medical History Medical History Alcohol abuse Anxiety Asthma Coffee ground emesis Depression History of seizure due to alcohol withdrawal Suicide attempt (09/2019) Intentional overdose alcohol, Wellbutrin, Ativan. Surgical History Surgical History History of breast augmentation History of tonsillectomy Family History Family History Other Family history of pancreatic cancer Social History Social History Social History: Surrogate medical decision maker: Brady Ross, brother. Code status: Full code. Smoking packs per day: 0.5 Smoking cigarettes per day: 10.0 Years smoked: 10 Smoking pack-years: 5.00 Smoking status: Current every day smoker Tobacco type: cigarettes Smoking end date: 03/15/11 Alcohol intake: current Drinks per week: 70 Alcohol use details: Ten beers a day. Substance use: never Substance use type: prescription drug Lack of Transportation: No Lack of Food: Never True Current Housing: I Have Housing Concerned About Future Housing: No Difficulty Paying Gas/Electric Bills: No Difficulty Paying for Meds: No Currently Unemployed: No Education: Bachelor's Degree Difficulty w/ Childcare or Family Care: No Spiritual care concerns: No Exam Const: General: no acute distress and alert Nutritional Appearance: well nourished Orientation/consciousness: patient oriented x3 HENMT: Head: normal to inspection Eyes: EOM: EOMs i
== END 2022-09-17 18:49 | disposition left against medical advice (07) ==
PROVIDERS: Emergency Provider General Practice; PCP Student in an Organized Health Care Education/Training Program
DX: F10.10 Alcohol abuse, uncomplicated (principal); F17.210 Nicotine dependence, cigarettes, uncomplicated; Y90.9 Presence of alcohol in blood, level not specified
CPT/HCPCS: 99283

== ENCOUNTER 2022-10-01 20:13 | Emergency (ER) | payer BC, SELFPAY ==
[2022-10-01 20:14] VITALS: BP 150/92; PULSE 82; RESP 15; TEMP 36.5; O2SAT 97
--- NOTE | 2022-10-01 21:42 | PC.NURSE ---
patient called for room without answer
--- NOTE | 2022-10-01 21:52 | PC.NURSE ---
called for room without answer at this time.
== END 2022-10-01 21:42 | disposition left against medical advice (07) ==
PROVIDERS: PCP Student in an Organized Health Care Education/Training Program
DX: R11.0 Nausea (principal)
CPT/HCPCS: 99199

== ENCOUNTER 2022-11-26 16:04 | Emergency (ER) | payer BC, SELFPAY ==
--- NOTE | 2022-11-26 17:19 | PC.NURSE ---
pt called x2 for triage. pt was seen leaving the ED and going outside
== END 2022-11-26 17:19 | disposition left against medical advice (07) ==
LOC: ANHED 17:23
PROVIDERS: PCP Student in an Organized Health Care Education/Training Program
DX: Z53.21 Procedure and treatment not carried out due to patient leaving prior to being seen by health care provider (principal)
CPT/HCPCS: 99199

== ENCOUNTER 2022-11-26 18:03 | Inpatient (IN) | payer BC, SELFPAY ==
[2022-11-26] VITALS (7 sets, daily range): BP systolic 106–124; BP diastolic 68–96; PULSE 91–106; RESP 12–20; TEMP 36.5; O2SAT 94–100
--- NOTE | ~2022-11-26 | CT_ITS ---
EXAMINATION: CT brain wo con INDICATION: Overdose COMPARISON: 05/30/2022 TECHNIQUE: Standard unenhanced head CT. The dose-length product (DLP) was 605.33 mGy-cm. The mA was a djusted according to patient size. Iterative reconstruction technique was employed. FINDINGS: No intracranial hemorrhage, acute infarction, or abnormal mass lesion. The ventricles are n ormal. No abnormal mass effect or midline shift. The cabral-white matter differentiation is normal. The basal cisterns are patent. The orbits are normal. The paranasal sinuses, mastoids and calvarium are normal. IMPRESSION: 1. No acute intracranial abnormality. Reviewed, dictated and finalized at location F.
--- NOTE | 2022-11-26 18:10 | ECG_ITS ---
Measurements Intervals [place] Rate: 99 P: 71 [place]: 144 QRS: 26 QRSD: 102 T: 67 QT: 350 QTc: 450 Interpretive Statements SINUS RHYTHM POSSIBLE LEFT ATRIAL ENLARGEMENT INCOMPLETE RIGHT BUNDLE BRANCH BLOCK BORDERLINE ECG COMPARED TO ECG 07/04/2022 12:26:53 NO SIGNIFICANT CHANGES Electronically Signed On 11-26-2022 18:49:57 CDT by Jimmy Garcia D.O.
--- NOTE | 2022-11-26 18:25 | ED.OVERDOSE ---
HPI - Overdose General Chief Complaint: Overdose <JAIME Hammond Last Filed: 11/26/22 23:37> Stated Complaint: od <JAIME Hammond Last Filed: 11/26/22 23:37> Time Seen by Provider: 11/26/22 18:10 <JAIME Hammond Last Filed: 11/26/22 23:37> Source: patient and old records reviewed <JAIME Hammond Last Filed: 11/26/22 23:37> Mode of arrival: EMS <JAIME Hammond Last Filed: 11/26/22 23:37> Limitations: no limitations <JAIME Hammond Last Filed: 11/26/22 23:37> History of Present Illness HPI Narrative: Patient is a 47-year-old female, with past medical history of alcoholism and alcoholic WD sz's, who presents to the ED via EMS with report of intentional overdose. Patient reports a long history of alcoholism. She states she is sick of living this way. She has been to rehab before but states nothing sticks. She drank 12 beers today, which is typical for her. She states she has had a bad week and became very depressed today. She states she did not want to live any longer today. She sent several family members text messages saying that she loved them and that she could not take it any longer. She then took 90 pills of gabapentin 100 mg. Family members called PD, who arrived on scene to patient approximately 15 minutes later and brought her here. PD did note that there were several pills scattered on the couch and she may have not taken all 90. Patient reports feeling very anxious currently, somewhat nauseous. She also reports feeling somewhat lightheaded and having a headache. Denies vision changes. Denies vomiting. Denies abdominal pain. Denies chest pain or shortness of breath. <JAIME Hammond Last Filed: 11/26/22 23:37> Related Data Home Medications: Home Medications Medication Instructions Recorded Confirmed albuterol sulfate 90 mcg/actuation 2 puff inhalation Q6H PRN 09/29/19 11/27/22 aerosol inhaler Shortness Of Breath atomoxetine 25 mg capsule 25 mg PO DAILY 11/27/22 11/27/22 fluoxetine 20 mg tablet 20 mg PO DAILY 11/27/22 11/27/22 quetiapine 25 mg tablet (Seroquel) 200 mg PO HS 11/27/22 11/27/22 <Evelia Mcgee PA-C - Last Filed: 11/26/22 23:37> Allergies/Adverse Reactions: Allergies Allergy/AdvReac Type Severity Reaction Status Date / Time No Known Allergies Allergy Mild Verified 10/01/22 20:18 <Evelia Mcgee PA-C - Last Filed: 11/26/22 23:37> Review of Systems Review of Systems: CONSTITUTIONAL: Denies fever, chills, or sweats. EYES: Denies visual changes. CARDIOVASCULAR: Denies chest pain. RESPIRATORY: Denies dyspnea. GASTROINTESTINAL: See HPI. MUSCULOSKELETAL: Denies back pain, joint pain, or myalgia. NEUROLOGIC: See HPI. PSYCHIATRIC: See HPI. <Evelia Mcgee PA-C - Last Filed: 11/26/22 23:37> All systems reviewed & are unremarkable except as noted in HPI and below <Evelia Mcgee PA-C - Last Filed: 11/26/22 23:37> [facility] Past Medical History Medical History: Medical History Alcohol abuse Anxiety Asthma Coffee ground emesis Depression History of seizure due to alcohol withdrawal Suicide attempt (09/2019) Intentional overdose alcohol, Wellbutrin, Ativan. <Evelia Mcgee PA-C - Last Filed: 11/26/22 23:37> Surgical History Surgical History: Surgical History History of breast augmentation History of tonsillectomy <Evelia Mcgee PA-C - Last Filed: 11/26/22 23:37> Family History Family History: Family History (Updated 11/27/22 @ 00:23 by Kenisha Maddox RN) Other Family history of pancreatic cancer Grandparent Acute myocardial infarction Congestive heart failure Diabetes mellitus Hypertension Mother Cerebrovascular accident <Evelia Shah
[2022-11-26 19:00] LABS: Appearance Urine Clear (Clear); Bacteria Urine None Seen /hpf; Basophils Absolute Auto 0.1 K/mm3 (0.0-0.1); Basophils Percent Auto 0.6 % (0.2-1.2); Bilirubin Urine Negative (Negative); Blood Urine Trace (Negative); Color Urine Yellow (Yellow); Eosinophils Absolute Auto 0.1 K/mm3 (0-0.3); Eosinophils Percent Auto 1.1 % (0-4.4); Glucose Urine UA Negative (Negative); Hematocrit 42.2 % (37.0-47.0); Hemoglobin 15.1 g/dL (12.0-15.0); Immature Granulocyte Absolute 0.01 K/mm3 (0.00-0.031); Immature Granulocyte Percent A 0.1 % (0-0.5); Ketones Urine Negative (Negative); Leukocyte Esterase Ur Negative LEU/UL (Negative); Lymphocytes Percent Auto 40.6 % (18.3-44.2); Mean Corpuscular HGB Conc 35.8 g/dl (32-36); Mean Corpuscular Hemoglobin 32.8 pg (26-34); Mean Corpuscular Volume 91.7 fl (80-100); Mean Platelet Volume 8.1 fl (7.4-10.4); Monocytes Absolute Auto 0.6 K/mm3 (0.1-0.6); Monocytes Percent Auto 7.6 % (2.6-8.5); Neutrophils Absolute Auto 4.1 K/mm3 (1.3-6.7); Nitrate Urine Negative (Negative); Non Pathogenic Casts 0-2; Platelet Count Result 649 k/mm3 (150-375); Protein Urine Negative (Negative); RBC Urine 0-2 /hpf (0-2); Red Cell Distribution Width 12.4 % (11.5-14.5); Specific Grav Ur 1.004 (1.001-1.035); Squamous Epithelial Cell Urine None seen /hpf (Few); Urobilinogen Urine 0.2 mg/dL (<2.0); WBC Urine 0-5 /hpf; White Blood Count 8.1 K/mm3 (4.5-10.0)
[2022-11-26 19:04] LABS: Alanine Aminotransferase 34 U/L (6-35); Albumin Level 4.8 g/dL (3.5-5.1); Alkaline Phosphatase 60 U/L (38-126); Anion Gap 12 mmol/L (8-16); Aspartate Amino Transferase 43 U/L (14-36); Bilirubin,Total 0.5 mg/dL (0.2-1.3); Blood Urea Nitrogen 3 mg/dL (7-17); Carbon Dioxide 26 mmol/L (22-30); Chloride 97 mmol/L (98-107); Estimated Glomerular Filt Rate > 60; Glucose 101 mg/dL (65-110); Potassium 4.1 mmol/L (3.4-5.0); Sodium 135 mmol/L (137-145)
[2022-11-26 19:05] LABS: Acetaminophen < 10 ug/mL (10-30); Add Urine Microscopic? YES; Ethanol 266 mg/dL (<10); Salicylate < 1.0 mg/dL (2-20)
[2022-11-26 19:10] LABS: Amphetamine Screen Urine Negative (Negative); Barbiturate Screen Urine Negative (Negative); Benzodiazepines Screen Urine Negative (Negative); Cannabinoid Screen Urine Negative (Negative); Cocaine Screen Urine Negative (Negative); Methadone Screen Urine Negative (Negative); Opiate Screen Urine Negative (Negative); Phencyclidine Screen Urine Negative (Negative)
[2022-11-26 19:36] LABS: Thyroid Stimulating Hormone 0.933 uIU/mL (0.465-4.680)
[2022-11-26 19:43] LABS: Valproic Acid < 10.0 ug/mL (50-120)
--- NOTE | 2022-11-26 19:48 | PC.NURSE ---
Assumed care of pt, pt is resting w/ lights dimmed, sitter at bedside, on tele monitor w/ VSS. Discussed POC.
[2022-11-26] MEDS: SODIUM CHLORIDE 0.9% IV 1,000 ML 999 ML IV CONT (19:50)
[2022-11-26 19:54] LABS: Magnesium 2.2 mg/dL (1.6-2.3)
--- NOTE | 2022-11-26 21:03 | PC.NURSE ---
Yaniv called from poison control to check on pt and discuss POC. This RN updated at this time.
[2022-11-26] MEDS: ACETAMINOPHEN 325 MG TABLET 650 MG PO (21:17)
[2022-11-26] MEDS: LORazepam INJ (*CRX) 2 MG/ML VIAL 0.5 MG IV PUSH (21:18)
[2022-11-27] VITALS (18 sets, daily range): BP systolic 98–133; BP diastolic 63–91; PULSE 78–110; RESP 14–24; TEMP 36.2–36.9; O2SAT 95–100; BMI 18.8
[2022-11-27 00:38] LABS: Glucose Point of Care 110 mg/dl (65-105)
[2022-11-27] MEDS: LORazepam INJ (*CRX) 2 MG/ML VIAL 1 MG IV PUSH ×4 (00:43→14:49)
[2022-11-27] MEDS: ONDANSETRON INJ 4 MG/2 ML VIAL IV PUSH ×4 (00:54→22:30)
--- NOTE | 2022-11-27 00:55 | ADMIMU ---
This patient, Micaela Worthy, was admitted to IMU status at 0000, and placed in Intensive Care Unit-4. Patient/family oriented to hospital policies and general routines including ID bracelet, bed and alarms, visiting hours, pain management, procedures, bathroom and other care routines, personal items, smoking policy, room service/diet, and visiting hours. Valuables list has been completed. Information on how to activate the Rapid Response Team has been discussed. Patient/Family are encouraged to report perceived risks to care and to ask questions if they do not understand what they are told or what they should do.
--- NOTE | 2022-11-27 01:15 | PC.NURSE ---
Poison control called for update. No new directions at this time.
[2022-11-27] MEDS: SUMAtriptan SUCCINATE 25 MG TABLET 50 MG PO (04:13)
--- NOTE | 2022-11-27 06:07 | PC.NURSE ---
Verified with patient that in addition to her brother, the following can be given information: Boyfriend Ruddy Lehman [phone], Mother Yodit Granados [phone], and Sister Susan Bhardwaj [phone].
--- NOTE | 2022-11-27 08:53 | PM.IMHP ---
H&P: HPI History of Present Illness Date/Time: 11/27/22 08:53 Chief Complaint: suicide attempt Narrative: 47F w/ PMH asthma, anxiety, Bipolar, depression, alcoholism with hx of alcohol withdrawal and seizures, tobacco abuse, marijuana abuse and suicide attempt 09/2019 (alcohol, wellbutrin, ativan) presents with a suicide attempt at home. She texted family members and told her goodbyes, then drank alcohol and tried to take 90 pills of gabapentin which she reports has been prescribed for her anxiety. Family called PD and found her on the couch with pills scattered. She was brought into [facility] and was feeling anxious but otherwise just felt anxious and had unremarkable labs aside from ETOH level of 266. She has been certified to suicide risk admission with a 1 on 1 sitter in ICU room 4. Upon my exam she reports feeling anxious and depressed with a headache and nausea but otherwise no complaints. I expressed my sympathy to her going through this rough time, told her we'd support her medically and then get her the right psychiatric treatment. She was agreeable to this plan. Review of Systems Constitutional: Constitutional: Denies fatigue and Denies poor appetite Comments: anxious Eyes: Eyes: Denies blurry vision and Denies change in vision ENT: Denies dizziness Cardiovascular: Cardiovascular: Denies chest pain, Denies diaphoresis, Denies syncope, Denies irregular heart rhythm, Denies leg edema and Denies dyspnea Respiratory: Respiratory: Denies cough, Denies dyspnea and Denies wheezing Gastrointestinal: Gastrointestinal: Denies abdominal pain, Denies constipation, Denies diarrhea, Reports nausea and Denies vomiting Genitourinary: Genitourinary: Denies urinary urgency Neurologic: Denies dizziness, Denies syncope, Denies focal weakness, Denies seizure-like activity and Denies Sensory deficit (Neuro) Psychiatric: Psychiatric: Reports anxiety, Reports depression and Reports suicidal ideation [facility] Past Medical History Medical History Alcohol abuse Anxiety Asthma Coffee ground emesis Depression History of seizure due to alcohol withdrawal Suicide attempt (09/2019) Intentional overdose alcohol, Wellbutrin, Ativan. Surgical History Surgical History History of breast augmentation History of tonsillectomy Family History Family History (Updated 11/27/22 @ 00:23 by Kenisha Maddox RN) Other Family history of pancreatic cancer Grandparent Acute myocardial infarction Congestive heart failure Diabetes mellitus Hypertension Mother Cerebrovascular accident Social History Social History Social History: Surrogate medical decision maker: Brady Ross, brother. Code status: Full code. Smoking packs per day: 0.5 Smoking cigarettes per day: 10.0 Years smoked: 10 Smoking pack-years: 5.00 Smoking status: Current every day smoker Tobacco type: cigarettes Second hand tobacco smoke exposure: Yes Smoking end date: 03/15/11 Alcohol intake: current Drinks per week: 12 Alcohol use details: Ten beers a day. Substance use: never Substance use type: prescription drug Lack of Transportation: YES Lack of Food: Never True Current Housing: I Have Housing Concerned About Future Housing: YES Difficulty Paying Gas/Electric Bills: No Difficulty Paying for Meds: YES Currently Unemployed: YES Education: Bachelor's Degree Difficulty w/ Childcare or Family Care: No Spiritual care concerns: No Meds Home Medications and Allergies Home Medications Medication Instructions Recorded Confirmed Type albuterol sulfate 90 mcg/actuation 2 puff inhalation Q6H PRN 09/29/19 11/27/22 History aerosol inhaler Shortness Of Breath pantoprazole 40 mg tablet,delayed 40 mg PO QAM #30 tabs 07/08/22 11/27/22 Rx r
[2022-11-27] MEDS: PANTOPRAZOLE 40 MG TABLET PO (09:01)
[2022-11-27] MEDS: ENOXAPARIN 40 MG/0.4 ML SYRINGE SUB-Q (09:01)
[2022-11-27 09:26] LABS: Alanine Aminotransferase 38 U/L (6-35); Albumin Level 4.4 g/dL (3.5-5.1); Alkaline Phosphatase 54 U/L (38-126); Anion Gap 7 mmol/L (8-16); Aspartate Amino Transferase 50 U/L (14-36); Bilirubin,Total 0.9 mg/dL (0.2-1.3); Blood Urea Nitrogen 4 mg/dL (7-17); Calcium 9.2 mg/dL (8.4-10.2); Carbon Dioxide 24 mmol/L (22-30); Chloride 105 mmol/L (98-107); Estimated CRCL calculation 87 ml/min; Estimated Glomerular Filt Rate > 60; Glucose 118 mg/dL (65-110); Potassium 4.8 mmol/L (3.4-5.0); Sodium 136 mmol/L (137-145)
[2022-11-27] MEDS: ALBUTEROL SULFATE (*SP) AEROSOL 1 PUFF 2 PUFF INHALATION ×2 (16:16→22:37)
[2022-11-27] MEDS: LORazepam INJ (*CRX) 2 MG/ML VIAL IV PUSH ×2 (17:56→20:16)
[2022-11-27] MEDS: chlordiazePOXIDE (*CRX) 25 MG CAPSULE PO (17:57)
[2022-11-27] MEDS: PANTOPRAZOLE SODIUM IV 40 MG VIAL IV PUSH (22:30)
[2022-11-28] VITALS (9 sets, daily range): BP systolic 99–127; BP diastolic 66–96; PULSE 68–101; RESP 13–18; TEMP 36.5–36.7; O2SAT 98–100
[2022-11-28] MEDS: chlordiazePOXIDE (*CRX) 25 MG CAPSULE PO ×5 (00:21→23:32)
[2022-11-28] MEDS: SIMETHICONE 80 MG TAB.CHEW PO (00:24)
[2022-11-28] MEDS: LORazepam INJ (*CRX) 2 MG/ML VIAL IV PUSH ×3 (00:52→08:04)
[2022-11-28] MEDS: MAG HYDROX/AL HYDROX/SIMETH 30 ML UDC PO (04:25)
[2022-11-28 04:50] LABS: Hematocrit 36.3 % (37.0-47.0); Hemoglobin 12.5 g/dL (12.0-15.0); Mean Corpuscular HGB Conc 34.4 g/dl (32-36); Mean Corpuscular Hemoglobin 32.3 pg (26-34); Mean Corpuscular Volume 93.8 fl (80-100); Mean Platelet Volume 8.5 fl (7.4-10.4); Platelet Count Result 571 k/mm3 (150-375); Red Blood Count 3.87 M/mm3 (4.2-5.4)
[2022-11-28 05:06] LABS: Alanine Aminotransferase 28 U/L (6-35); Albumin Level 3.8 g/dL (3.5-5.1); Alkaline Phosphatase 45 U/L (38-126); Anion Gap 6 mmol/L (8-16); Aspartate Amino Transferase 33 U/L (14-36); Bilirubin,Total 0.8 mg/dL (0.2-1.3); Blood Urea Nitrogen 4 mg/dL (7-17); Calcium 8.7 mg/dL (8.4-10.2); Carbon Dioxide 25 mmol/L (22-30); Chloride 105 mmol/L (98-107); Estimated CRCL calculation 87 ml/min; Estimated Glomerular Filt Rate > 60; Glucose 120 mg/dL (65-110); Magnesium 2.2 mg/dL (1.6-2.3); Phosphorus 3.8 mg/dL (2.5-4.5); Potassium 4.1 mmol/L (3.4-5.0); Sodium 136 mmol/L (137-145)
[2022-11-28] MEDS: ENOXAPARIN 40 MG/0.4 ML SYRINGE SUB-Q (08:03)
[2022-11-28] MEDS: PANTOPRAZOLE 40 MG TABLET PO (08:03)
[2022-11-28] MEDS: ONDANSETRON INJ 4 MG/2 ML VIAL IV PUSH ×3 (12:17→22:16)
--- NOTE | 2022-11-28 13:37 | PM.IMPN ---
Progress Note: A&P Assessment and Plan (1) Intentional overdose: Qualifiers: Encounter type: initial encounter Qualified Code(s): T50.902A - Poisoning by unspecified drugs, medicaments and biological substances, intentional self-harm, initial encounter Code(s): T50.902A - Poisoning by unspecified drugs, medicaments and biological substances, intentional self-harm, initial encounter Status: Acute (2) Depression with suicidal ideation: Code(s): F32.A - Depression, unspecified; R45.851 - Suicidal ideations Status: Acute (3) Alcohol withdrawal syndrome: Code(s): F10.939 - Alcohol use, unspecified with withdrawal, unspecified Status: Acute (4) Alcohol abuse: Code(s): F10.10 - Alcohol abuse, uncomplicated Status: Acute Plan 47F w/ PMH asthma, anxiety, Bipolar, depression, alcoholism with hx of alcohol withdrawal and seizures, tobacco abuse, marijuana abuse and suicide attempt 09/2019 (alcohol, wellbutrin, ativan) presents with a suicide attempt at home. Admitted on 11/26 to ICU. 1) suicide attempt, hx of anxiety, depression, bipolar disorder - overdose with gabapentin. tachycardia has resolved. poison control contacted, recommended monitoring for S[employer] depression. Currently she is full awake and alert - once CIWA is low or resolved, contact proper entity for suicide/mental health screen 2) alcoholism w/ alcohol withdrawal - ETOH level on admission 266. she has had alcohol withdrawal before. cont CIWA protocol - banana bags daily, trend LFTS, accuchecks, seizure and fall precautions - CIWA 8 on morning of 11/28 - cont prn ativan and schedule librium FEN: banana bags, regular diet GI prophylaxis: protonix DVT prophylaxis: lovenox Lines: pIV Code Status: Full code Dispo: psych eval pending. Subjective Date/time seen: 11/28/22 13:37 Interval history: NAOE. she complains of vivid dreams at night. reports her anxiety is relieved Review of Systems Cardiovascular: Cardiovascular: Denies chest pain and Denies dyspnea Respiratory: Respiratory: Denies cough and Denies dyspnea Gastrointestinal: Gastrointestinal: Denies abdominal pain and Denies vomiting Exam Const: General: no acute distress, alert and Physically active Resp: Effort & Inspection: normal respiratory effort Auscultation: clear to auscultation bilaterally Cardio: Rate: regular rate Rhythm: regular rhythm Heart sounds: S1 normal heart sound present and S2 normal heart sound present GI: Inspection: non-distended GI Palp: No abdominal tenderness Auscultation: normal bowel sounds Extrem: Right upper extremity: no edema Objective Data Vital Signs Vital Signs: Vital Signs - 24 hr 11/27/22 14:00 11/27/22 16:00 11/27/22 16:00 Temperature Pulse Rate 106 H 78 Pulse Rate [Monitor] 78 Respiratory Rate Blood Pressure Pulse Oximetry Oxygen Delivery 11/27/22 16:00 11/27/22 17:49 11/27/22 18:00 Temperature 97.9 F Pulse Rate 80 108 H Pulse Rate [Monitor] 94 Respiratory Rate 20 Blood Pressure 133/91 H Pulse Oximetry 100 Oxygen Delivery 11/27/22 20:00 11/27/22 19:30 11/27/22 22:31 Temperature Pulse Rate 97 Pulse Rate [Monitor] 91 93 Respiratory Rate 19 Blood Pressure Pulse Oximetry 98 Oxygen Delivery Room Air 11/27/22 22:00 11/27/22 20:00 11/28/22 00:00 Temperature Pulse Rate 84 93 89 Pulse Rate [Monitor] Respiratory Rate Blood Pressure Pulse Oximetry Oxygen Delivery 11/28/22 00:00 11/28/22 00:00 11/28/22 04:00 Temperature 98.1 F Pulse Rate 86 Pulse Rate [Monitor] 89 92 Respiratory Rate 16 Blood Pressure 99/66 L Pulse Oximetry 99 Oxygen Delivery 11/28/22 04:00 11/28/22 08:00 11/28/22 08:00 Temperature 97.7 F Pulse Rate 94 96 Pulse Rate [Monitor] 89 Respiratory Rate 13 Blood Pressure 121/96 H Pulse Oximetry 98 Oxygen Delivery 11/28/22 08:00 11/28/22 09:58 11/28
[2022-11-28] MEDS: ALBUTEROL SULFATE (*SP) AEROSOL 1 PUFF 2 PUFF INHALATION (22:44)
[2022-11-28] MEDS: ACETAMINOPHEN 325 MG TABLET 650 MG PO (22:48)
[2022-11-29] VITALS: BP 131/94; PULSE 81; PULSE 97; RESP 18; TEMP 36.7; O2SAT 98
[2022-11-29 04:00] VITALS: PULSE 79; PULSE 93
[2022-11-29 04:27] LABS: Hematocrit 37.2 % (37.0-47.0); Hemoglobin 12.5 g/dL (12.0-15.0); Mean Corpuscular HGB Conc 33.6 g/dl (32-36); Mean Corpuscular Volume 95.1 fl (80-100); Mean Platelet Volume 8.7 fl (7.4-10.4); Platelet Count Result 582 k/mm3 (150-375); Red Blood Count 3.91 M/mm3 (4.2-5.4); Red Cell Distribution Width 12.2 % (11.5-14.5)
[2022-11-29 04:40] LABS: Anion Gap 8 mmol/L (8-16); Blood Urea Nitrogen 5 mg/dL (7-17); Calcium 8.9 mg/dL (8.4-10.2); Carbon Dioxide 25 mmol/L (22-30); Chloride 102 mmol/L (98-107); Estimated CRCL calculation 90 ml/min; Estimated Glomerular Filt Rate > 60; Glucose 114 mg/dL (65-110); Potassium 4.1 mmol/L (3.4-5.0); Sodium 135 mmol/L (137-145)
[2022-11-29] MEDS: chlordiazePOXIDE (*CRX) 25 MG CAPSULE PO (06:03)
[2022-11-29] MEDS: MAG HYDROX/AL HYDROX/SIMETH 30 ML UDC PO (06:03)
[2022-11-29 07:24] VITALS: BP 122/87; PULSE 90; RESP 14
[2022-11-29] MEDS: PANTOPRAZOLE 40 MG TABLET PO (07:26)
[2022-11-29] MEDS: ONDANSETRON INJ 4 MG/2 ML VIAL IV PUSH (07:26)
[2022-11-29] MEDS: ENOXAPARIN 40 MG/0.4 ML SYRINGE SUB-Q (07:31)
[2022-11-29 08:00] VITALS: PULSE 85
--- NOTE | 2022-11-29 09:04 | PM.IMPN ---
Progress Note: A&P Assessment and Plan (1) Intentional overdose: Qualifiers: Encounter type: initial encounter Qualified Code(s): T50.902A - Poisoning by unspecified drugs, medicaments and biological substances, intentional self-harm, initial encounter Code(s): T50.902A - Poisoning by unspecified drugs, medicaments and biological substances, intentional self-harm, initial encounter Status: Acute Assessment and Plan: Gabapentin 11/29 denied SI and wants to go home to celebrate mother's 70th birthday today 11/29 she is medically stable for discharge to home vs inpatient facility, pending crisis evaluation (2) Depression with suicidal ideation: Code(s): F32.A - Depression, unspecified; R45.851 - Suicidal ideations Status: Acute Assessment and Plan: Hx Bipolar 1, has outpatient psych at [facility] (3) Alcohol withdrawal syndrome: Code(s): F10.939 - Alcohol use, unspecified with withdrawal, unspecified Status: Acute Assessment and Plan: States alcohol w/d only mild in past (4) Alcohol abuse: Code(s): F10.10 - Alcohol abuse, uncomplicated Status: Acute Assessment and Plan: Hx of binge drinking, not continuous Subjective Date/time seen: 11/29/22 09:04 Interval history: Poor appetite. Hx bipolar 1 and AUD. Was drinking for 10 days intermittently, 2-3 days at a time, 10-12 Arlee Lights per day. Only mild w/d issues in the past. No cp or sob. No swelling. No abd pain. No gu issues. No ABNL bleeding. Notes chronic intermittent tingling in hands and feet and intermittent lightheadedness when she closes her eyes, eg while showering. Had a fall last week. Has been using walker here due to fear of falling. Plans to d/w PCP Dr. Hawkins with [facility]. Has outpatient psychiatrist as well. Exam Narrative: HEENT: PERRL, sclerae nonicteric, pharyngeal mucosa pink and intact NECK: No JVD CHEST: Clear to auscultation. Normal effort. HEART: NL S1/S2, regular, no murmur ABDOMEN: BS+, soft, nontender, no mass, no bruits EXTREMITIES: No cyanosis, edema, or clubbing NEUROLOGIC: CN intact and symmetric to inspection. MUSCULOSKELETAL: Tone and strength symmetric. PSYCH: Alert. Oriented to person, place, and time. Affect blunted. Objective Data Vital Signs Vital Signs: Vital Signs - 24 hr 11/28/22 09:58 11/28/22 12:00 11/28/22 12:00 Temperature Pulse Rate 87 83 Pulse Rate [Monitor] 87 Respiratory Rate Blood Pressure Pulse Oximetry Oxygen Delivery 11/28/22 14:00 11/28/22 16:00 11/28/22 16:00 Temperature Pulse Rate 68 97 Pulse Rate [Monitor] 97 Respiratory Rate 15 Blood Pressure 127/96 H Pulse Oximetry 99 Oxygen Delivery 11/28/22 16:00 11/28/22 20:00 11/28/22 20:00 Temperature Pulse Rate 76 92 Pulse Rate [Monitor] 93 Respiratory Rate 18 Blood Pressure 124/87 Pulse Oximetry 100 Oxygen Delivery Room Air 11/28/22 20:00 11/28/22 23:28 11/29/22 00:00 Temperature 98.1 F Pulse Rate 92 97 Pulse Rate [Monitor] 93 Respiratory Rate 18 Blood Pressure 131/94 H Pulse Oximetry 98 Oxygen Delivery 11/29/22 00:00 11/29/22 04:00 11/29/22 04:00 Temperature Pulse Rate 81 79 Pulse Rate [Monitor] 93 Respiratory Rate Blood Pressure Pulse Oximetry Oxygen Delivery 11/29/22 07:24 11/29/22 08:00 Temperature Pulse Rate 90 85 Pulse Rate [Monitor] Respiratory Rate 14 Blood Pressure 122/87 Pulse Oximetry Oxygen Delivery Intake/Output Intake/Output: Intake & Output 11/26/22 11/27/22 11/28/22 11/29/22 23:59 23:59 23:59 23:59 Intake Total 1000 2950 700 240 Output Total 2850 Balance 1000 100 700 240 Meds/Results Medications: Active Medications Generic Name Dose Route Start Last Admin Trade Name Freq PRN Reason Stop Dose Admin Acetaminophen 650 mg 11/28/22 22:34 11/28/22 22:48 Acetaminophen 325 Mg Tablet PO 650
[2022-11-29] MEDS: ACETAMINOPHEN 325 MG TABLET 650 MG PO (10:21)
--- NOTE | 2022-11-29 10:58 | PC.NURSE ---
Spoke with Shawn a pharmacist at poison control. Poison control stated they closed her case Wednesday11/27/2022. Janna is care coordination aware.
[2022-11-29] MEDS: SUMAtriptan SUCCINATE 25 MG TABLET 50 MG PO (11:26)
[2022-11-29 12:00] VITALS: PULSE 78
--- NOTE | 2022-11-29 13:08 | PM.DS ---
DS: Admitting Diagnosis Discharge Date 11/29/2022 Admitting Diagnosis Intentional drug overdose DS: Discharge Diagnosis Discharge Diagnosis (1) Intentional overdose: Qualifiers: Encounter type: initial encounter Qualified Code(s): T50.902A - Poisoning by unspecified drugs, medicaments and biological substances, intentional self-harm, initial encounter Code(s): T50.902A - Poisoning by unspecified drugs, medicaments and biological substances, intentional self-harm, initial encounter Status: Acute (2) Depression with suicidal ideation: Code(s): F32.A - Depression, unspecified; R45.851 - Suicidal ideations Status: Acute (3) Alcohol withdrawal syndrome: Code(s): F10.939 - Alcohol use, unspecified with withdrawal, unspecified Status: Acute (4) Alcohol abuse: Code(s): F10.10 - Alcohol abuse, uncomplicated Status: Acute Plan Intentional drug overdose with gabapentin DS: Summary Hospital Course Reason for hospitalization: Intentional drug overdose gabapentin Hospital Course: Admitted with suicidal ideation and intentional drug overdose. Patient admits to taking an unspecified number gabapentin tablets of unknown strength. She had an uneventful overnight stay with stable telemetry and labs. White count was 700 hemoglobin 12.5 platelets [id number] creatinine 0.6 chest x-ray was unremarkable INR 1.0. She was in normal sinus rhythm with unremarkable intervals. She was evaluated crisis team a safety plan was formulated. Her uncle was to stay with her for a few days. She was wanting to arrange a sober living situation for alcohol rehabilitation. Time Spent with Patient Time attestation: Total time spent providing and/or coordinating discharge services: Exam Narrative: HEENT: PERRL, sclerae nonicteric, pharyngeal mucosa pink and intact NECK: No JVD CHEST: Clear to auscultation. Normal effort. HEART: NL S1/S2, regular, no murmur ABDOMEN: BS+, soft, nontender, no mass, no bruits EXTREMITIES: No cyanosis, edema, or clubbing NEUROLOGIC: CN intact and symmetric to inspection. MUSCULOSKELETAL: Tone and strength symmetric. PSYCH: Alert. Oriented to person, place, and time. Affect blunted. DS: Data Data Completed and Pending Labs on day of discharge: Labs from last 24 hours 11/29/22 03:49 WBC 7.0 RBC 3.91 L Hgb 12.5 Hct 37.2 MCV 95.1 MCH 32.0 MCHC 33.6 RDW 12.2 Plt Count 582 H MPV 8.7 Sodium 135 L Potassium 4.1 Chloride 102 Carbon Dioxide 25 Anion Gap 8 BUN 5 L Creatinine 0.60 L Estim Creat Clear Calc 90 Estimated GFR > 60 Glucose 114 H Calcium 8.9 Discharge Plan Discharge Discharging Clinician: Todd Kee Patient Disposition: Home, Self-Care Activity: no driving Diet: as tolerated Patient Instructions: Depression (DC), Abuse of Alcohol (DC), Suicide Prevention (DC) Stand Alone Forms: General Discharge Information Follow-up/Referrals: Shruthi,DO Shelton [Primary Care Provider] - Call for Appointment Discharge Medications: Continued albuterol sulfate 90 mcg/actuation HFA aerosol inhaler 2 puff INHALATION Q6H PRN (Reason: Shortness Of Breath) pantoprazole 40 mg Tablet,Delayed Release (Dr/Ec) 40 mg PO QAM Qty: 30 0RF fluoxetine 20 mg tablet 20 mg PO DAILY Rx Instructions: stillneeds to take 2 doses 11/27 and 11/28, then complete atomoxetine 25 mg capsule 25 mg PO DAILY quetiapine [Seroquel] 25 mg tablet 200 mg PO HS Date of admission: 11/27/22 07:26 Primary Care Provider: ShruthiShelton Admitting Provider: Christy Alba V. Attending physician on admission: Christy Alba V. Condition: Serious
== END 2022-11-29 13:29 | disposition home or self-care (01) | DRG 918 ==
LOC: ANHED 18:11 → ANHICU 23:33
PROVIDERS: General Practice; Admitting Provider Internal Medicine; Emergency Provider Physician Assistant; PCP Student in an Organized Health Care Education/Training Program; Visit Provider Internal Medicine
DX: T42.6X2A Poisoning by other antiepileptic and sedative-hypnotic drugs, intentional self-harm, initial encounter (principal); R45.851 Suicidal ideations; F10.239 Alcohol dependence with withdrawal, unspecified; F12.10 Cannabis abuse, uncomplicated; F31.9 Bipolar disorder, unspecified; F41.9 Anxiety disorder, unspecified; F17.210 Nicotine dependence, cigarettes, uncomplicated; J45.909 Unspecified asthma, uncomplicated
CPT/HCPCS: 36415; 70450; 80048; 80053; 80164; 80307; 81001; 82948; 83735; 84100; 84443; 85025; 85027; 93005; 94640; 96361; 96374; 96376; 99285; A9270; C9113; G0378; J1650; J2060; J2405; J3411; J3475; J7030

== ENCOUNTER 2023-01-04 09:18 | Emergency (ER) | payer BC, SELFPAY ==
--- NOTE | ~2023-01-04 | CT_ITS ---
EXAMINATION: CT abdomen pelvis w con DATE: 01/04/2023 11:38 INDICATION: Hemoptysis. Alcohol abuse. Abdomen pain. Dizziness. TECHNIQUE: Computed tomography (CT) of the abdomen and pelvis was performed with 100 cc Omnipaque 350 intravenous contrast. The dose-length product was 224.05 mGy-cm. Automated exposure control and iter ative reconstruction technique were employed. COMPARISON: None. FINDINGS: Lung bases unremarkable. Heart size normal. There are bilateral breast implants. No signifi cant pleural or pericardial effusion. Bilateral hydronephrosis. Severely distended bladder. Fatty inf iltration of the liver. Gallbladder is present. Spleen, pancreas, adrenal glands are unremarkable. Sm all subcentimeter hypodensities of the left kidney, most likely benign cysts. There is mild thickenin g of the gastric antrum, suspicious for gastritis. Nonobstructive bowel gas pattern. No significant f ree air or free fluid. No vascular abnormality. No lymphadenopathy. IMPRESSION: 1. Mild thickening of the gastric antrum, suspicious for gastritis. 2: Severely suggest distended bladder with mild bilateral hydronephrosis. Reviewed, dictated and finalized at location B.
[2023-01-04 09:26] VITALS: BP 120/88; PULSE 100; RESP 22; TEMP 37.3; O2SAT 99
--- NOTE | 2023-01-04 09:50 | ECG_ITS ---
Measurements Intervals [place] Rate: 98 P: 68 CO: 153 QRS: 15 QRSD: 103 T: 63 QT: 347 QTc: 443 Interpretive Statements SINUS RHYTHM POSSIBLE RIGHT VENTRICULAR CONDUCTION DELAY [RSR (QR) IN V1/V2] CONSIDER RIGHT ATRIAL ENLARGEMENT BORDERLINE ECG COMPARED TO ECG 11/26/2022 18:22:02 NO SIGNIFICANT CHANGES Electronically Signed On 01-04-2023 14:53:49 CDT by Justen Mansfield M.D.
[2023-01-04 09:53] VITALS: BP 116/90; PULSE 100
[2023-01-04 09:54] VITALS: BP 118/99; PULSE 101
[2023-01-04 09:55] VITALS: BP 115/101; PULSE 107
[2023-01-04 09:55] LABS: Basophils Absolute Auto 0.1 K/mm3 (0.0-0.1); Basophils Percent Auto 0.8 % (0.2-1.2); Eosinophils Absolute Auto 0.2 K/mm3 (0-0.3); Eosinophils Percent Auto 2.3 % (0-4.4); Hematocrit 39.4 % (37.0-47.0); Hemoglobin 13.4 g/dL (12.0-15.0); Immature Granulocyte Absolute 0.06 K/mm3 (0.00-0.031); Immature Granulocyte Percent A 0.6 % (0-0.5); Lymphocytes Absolute Auto 2.75 K/mm3 (0.9-3.2); Mean Corpuscular Hemoglobin 32.4 pg (26-34); Mean Corpuscular Volume 95.4 fl (80-100); Mean Platelet Volume 8.5 fl (7.4-10.4); Monocytes Absolute Auto 0.4 K/mm3 (0.1-0.6); Monocytes Percent Auto 4.5 % (2.6-8.5); Neutrophils Absolute Auto 5.9 K/mm3 (1.3-6.7); Neutrophils Percent Auto 62.8 % (45.5-73.1); Platelet Count Result 481 k/mm3 (150-375); Red Blood Count 4.13 M/mm3 (4.2-5.4); White Blood Count 9.5 K/mm3 (4.5-10.0)
--- NOTE | 2023-01-04 09:55 | ED.GENADULT ---
HPI - General Adult General Chief complaint: Nausea/Vomiting/Diarrhea Stated complaint: I'm an alcoholic and I'm throwing up blood. Time Seen by Provider: 01/04/23 09:28 History of Present Illness HPI narrative: Micaela Worthy is a 47 y/o female with PMHx of alcoholism for 10 years, she states her last drink was around 0400 and states she had around 24 beers. She presents with complaints of having nausea/vomiting that started around 0400 with all over abdominal pain. She reports she has had seizures before with withdrawal about 4 years ago. She also would like to be here for detox. Denies chest pain/ fever/ recent illness She also adds that she has had left knee pain for several days. Denies any known injury/ trauma Related Data Home Medications Medication Instructions Recorded Confirmed albuterol sulfate 90 mcg/actuation 2 puff inhalation Q6H PRN 09/29/19 11/27/22 aerosol inhaler Shortness Of Breath atomoxetine 25 mg capsule 25 mg PO DAILY 11/27/22 11/27/22 fluoxetine 20 mg tablet 20 mg PO DAILY 11/27/22 11/27/22 quetiapine 25 mg tablet (Seroquel) 200 mg PO HS 11/27/22 11/27/22 Allergies Allergy/AdvReac Type Severity Reaction Status Date / Time No Known Allergies Allergy Mild Verified 01/04/23 09:57 Review of Systems Review of Systems: CONSTITUTIONAL: Denies fever, chills, or sweats. EYES: Denies visual changes, redness, or discharge. ENT: Denies rhinorrhea, congestion, sore throat, or otalgia. CARDIOVASCULAR: Denies chest pain, palpitations, or edema. RESPIRATORY: Denies cough or dyspnea. GASTROINTESTINAL:Reports abdominal pain all over with nasuea/vomiting GENITOURINARY: Denies dysuria or hematuria. SKIN: Denies rash or itching. MUSCULOSKELETAL: Denies back pain, joint pain, or myalgia. NEUROLOGIC: Denies headache, numbness, dizziness, or weakness. PSYCHIATRIC: Denies anxiety or depression. [facility] Past Medical History Medical History Alcohol abuse Anxiety Asthma Coffee ground emesis Depression History of seizure due to alcohol withdrawal Suicide attempt (09/2019) Intentional overdose alcohol, Wellbutrin, Ativan. Surgical History Surgical History History of breast augmentation History of tonsillectomy Family History Family History Other Family history of pancreatic cancer Grandparent Acute myocardial infarction Congestive heart failure Diabetes mellitus Hypertension Mother Cerebrovascular accident Social History Social History Social History: Surrogate medical decision maker: Brady Ross, brother. Code status: Full code. Smoking packs per day: 0.5 Smoking cigarettes per day: 10.0 Years smoked: 10 Smoking pack-years: 5.00 Smoking status: Current every day smoker Tobacco type: cigarettes Second hand tobacco smoke exposure: Yes Smoking end date: 03/15/11 Alcohol intake: current Drinks per week: 12 Alcohol use details: Ten beers a day. Substance use: never Substance use type: prescription drug Lack of Transportation: YES Lack of Food: Never True Current Housing: I Have Housing Concerned About Future Housing: YES Difficulty Paying Gas/Electric Bills: No Difficulty Paying for Meds: YES Currently Unemployed: YES Education: Bachelor's Degree Difficulty w/ Childcare or Family Care: No Spiritual care concerns: No Exam Narrative: GENERAL: Well-appearing, well-nourished, and in no acute distress. HEAD: Normocephalic, atraumatic. EYES: PERRLA and EOMI. ENT: Nares clear, no rhinorrhea or epistaxis. Mucous membranes moist. Oropharynx without tonsillar hypertrophy exudate or other lesions. NECK: Supple. No adenopathy or masses. No carotid bruits or JVD CHEST: Clear to auscultation. No respiratory distress. No wheezes rales or
[2023-01-04 10:06] LABS: Alanine Aminotransferase 20 U/L (6-35); Albumin Level 4.6 g/dL (3.5-5.1); Alkaline Phosphatase 48 U/L (38-126); Anion Gap 9 mmol/L (8-16); Aspartate Amino Transferase 33 U/L (14-36); Bilirubin,Total 0.7 mg/dL (0.2-1.3); Blood Urea Nitrogen 14 mg/dL (7-17); Calcium 8.8 mg/dL (8.4-10.2); Carbon Dioxide 21 mmol/L (22-30); Chloride 104 mmol/L (98-107); Estimated CRCL calculation 109 ml/min; Estimated Glomerular Filt Rate > 60; Glucose 87 mg/dL (65-110); Lipase 141 U/L (23-300); Potassium 4.5 mmol/L (3.4-5.0); Sodium 134 mmol/L (137-145)
[2023-01-04 10:06] LABS: Glucose Point of Care 98 mg/dl (65-105)
[2023-01-04] MEDS: PANTOPRAZOLE SODIUM IV 40 MG VIAL IV PUSH (10:06)
[2023-01-04] MEDS: SODIUM CHLORIDE 0.9% IV 1,000 ML 999 ML IV CONT (10:08)
[2023-01-04] MEDS: PROCHLORPERAZINE EDISYLATE 10 MG/2 ML VIAL IM (10:09)
[2023-01-04 10:12] LABS: Magnesium 2.4 mg/dL (1.6-2.3); Phosphorus 3.9 mg/dL (2.5-4.5)
[2023-01-04 10:16] LABS: Ethanol 261 mg/dL (<10)
[2023-01-04 10:19] LABS: INR 0.9; Prothrombin Time 12.3 Seconds (11.1-14.7)
[2023-01-04 10:20] LABS: Partial Thromboplastin Time 26.4 SECONDS (22.3-36.8)
[2023-01-04 10:21] LABS: Troponin I < 0.012 ng/mL (0.000-0.034)
[2023-01-04 10:28] LABS: Lactic Acid Reflex 1.1 mmol/L (0.7-2.0)
[2023-01-04 10:31] LABS: Appearance Urine Clear (Clear); Bilirubin Urine Negative (Negative); Blood Urine Negative (Negative); Color Urine Yellow (Yellow); Glucose Urine UA Negative (Negative); Ketones Urine Negative (Negative); Leukocyte Esterase Ur Negative LEU/UL (Negative); Nitrate Urine Negative (Negative); Protein Urine Negative (Negative); Specific Grav Ur 1.004 (1.001-1.035); Urobilinogen Urine 0.2 mg/dL (<2.0); pH Urine 5.5 (5.0-9.0)
--- NOTE | 2023-01-04 10:34 | PCCCNOTE ---
Met with patient bedside, patient is alert and oriented x 4, I ADL and states that she came to ER with alcohol withdraw symptoms. patient is interested in recovery and agreed to a referral to Oniel with [facility]. CC printed facesheet and gave to Oniel. CC will continue to follow for any needs that may arise.
[2023-01-04 10:36] LABS: Add Urine Microscopic? NO
[2023-01-04 11:11] LABS: Pregnancy On Board Control Positive; Urine Pregnancy Test Negative
[2023-01-04 11:18] VITALS: BP 122/79; PULSE 101; RESP 17
--- NOTE | 2023-01-04 11:23 | PC.NURSE ---
Pt to CT via stretcher at this time
[2023-01-04 12:10] VITALS: BP 123/94; PULSE 100; RESP 20; O2SAT 98
--- NOTE | 2023-01-04 12:31 | PC.NURSE ---
Went in room to check on pt, pt IV removed and laying on bed and pt not in room. Searched department for pt and could not locate her. Called [place] [employer] dispatch spoke to melvin #[id number] at [phone] and informed him since pt had elevated alcohol level on arrival and we did not have the chance to redraw before elopement.
[2023-01-04 12:32] LABS: Amphetamine Screen Urine Negative (Negative); Barbiturate Screen Urine Negative (Negative); Benzodiazepines Screen Urine Negative (Negative); Cannabinoid Screen Urine Negative (Negative); Cocaine Screen Urine Negative (Negative); Methadone Screen Urine Negative (Negative); Opiate Screen Urine Negative (Negative); Phencyclidine Screen Urine Negative (Negative)
== END 2023-01-04 12:42 | disposition left against medical advice (07) ==
LOC: ANHED 10:14
PROVIDERS: Emergency Medicine; Emergency Provider Nurse Practitioner Family; PCP Student in an Organized Health Care Education/Training Program
DX: K29.70 Gastritis, unspecified, without bleeding (principal); F10.20 Alcohol dependence, uncomplicated; Y90.8 Blood alcohol level of 240 mg/100 ml or more; J45.909 Unspecified asthma, uncomplicated; F41.9 Anxiety disorder, unspecified; F32.A Depression, unspecified; Z87.891 Personal history of nicotine dependence; R93.41 Abnormal radiologic findings on diagnostic imaging of renal pelvis, ureter, or bladder; N13.30 Unspecified hydronephrosis; R94.31 Abnormal electrocardiogram [ECG] [EKG]
CPT/HCPCS: 36415; 74177; 80053; 80307; 81003; 81025; 82948; 83605; 83690; 83735; 84100; 84484; 85025; 85610; 85730; 93005; 96361; 96365; 96366; 96372; 96375; 99284; C9113; J0780; J3411; J3475; J7030; Q9967

== ENCOUNTER 2023-01-20 16:51 | Observation (INO) | payer BC, SELFPAY ==
[2023-01-20] VITALS (9 sets, daily range): BP systolic 93–138; BP diastolic 71–99; PULSE 77–126; RESP 10–23; TEMP 36.6; O2SAT 95–100
--- NOTE | ~2023-01-20 | XR_ITS ---
EXAMINATION: XR ribs RT 2V DATE: 01/20/2023 17:55 INDICATION: Right rib pain. Fall. TECHNIQUE: 2 views of the right ribs on 3 radiographs were obtained. COMPARISON: None. FINDINGS: There is no right-sided pneumonia, pleural effusion, or pneumothorax. The heart size is nor mal. IMPRESSION: 1. No rib fracture. Reviewed, dictated and finalized at location E. S REVIEW CLERK IMPRESSION: 1. No rib fracture.
--- NOTE | ~2023-01-20 | CT_ITS ---
EXAMINATION: CT brain wo con DATE: 01/20/2023 17:49 INDICATION: Seizure. TECHNIQUE: Computed tomography (CT) of the head was performed without intravenous contrast. The mA wa s adjusted according to patient size. Iterative reconstruction technique was employed. The dose-lengt h product was 681.00 mGy-cm. COMPARISON: Head CT 11/26/2022 FINDINGS: There is no intracranial hemorrhage, acute infarction, or abnormal intracranial mass lesion . The ventricles are normal in size. There is mild mucosal thickening in the paranasal sinuses. The m astoid air cells are normal. The orbits are normal. There is right frontal scalp soft tissue swelling . IMPRESSION: 1. Normal brain. Reviewed, dictated and finalized at location E. BOARD OPERATOR IMPRESSION: 1. Normal brain.
[2023-01-20 18:26] LABS: Basophils Percent Auto 0.5 % (0.2-1.2); Eosinophils Absolute Auto 0.2 K/mm3 (0-0.3); Eosinophils Percent Auto 2.1 % (0-4.4); Hematocrit 36.1 % (37.0-47.0); Hemoglobin 12.4 g/dL (12.0-15.0); Immature Granulocyte Absolute 0.03 K/mm3 (0.00-0.031); Immature Granulocyte Percent A 0.4 % (0-0.5); Lymphocytes Absolute Auto 1.52 K/mm3 (0.9-3.2); Lymphocytes Percent Auto 19.5 % (18.3-44.2); Mean Corpuscular HGB Conc 34.3 g/dl (32-36); Mean Corpuscular Hemoglobin 33.2 pg (26-34); Mean Corpuscular Volume 96.8 fl (80-100); Mean Platelet Volume 8.3 fl (7.4-10.4); Monocytes Absolute Auto 0.6 K/mm3 (0.1-0.6); Monocytes Percent Auto 7.8 % (2.6-8.5); Neutrophils Absolute Auto 5.4 K/mm3 (1.3-6.7); Neutrophils Percent Auto 69.7 % (45.5-73.1); Platelet Count Result 395 k/mm3 (150-375); Red Blood Count 3.73 M/mm3 (4.2-5.4); Red Cell Distribution Width 13.5 % (11.5-14.5); White Blood Count 7.8 K/mm3 (4.5-10.0)
[2023-01-20 18:35] LABS: Alanine Aminotransferase 45 U/L (6-35); Albumin Level 4.4 g/dL (3.5-5.1); Alkaline Phosphatase 59 U/L (38-126); Anion Gap 3 mmol/L (8-16); Aspartate Amino Transferase 53 U/L (14-36); Bilirubin,Total 0.6 mg/dL (0.2-1.3); Blood Urea Nitrogen 12 mg/dL (7-17); Calcium 9.3 mg/dL (8.4-10.2); Carbon Dioxide 29 mmol/L (22-30); Chloride 97 mmol/L (98-107); Estimated CRCL calculation 105 ml/min; Estimated Glomerular Filt Rate > 60; Ethanol < 10 mg/dL (<10); Glucose 90 mg/dL (65-110); Potassium 3.4 mmol/L (3.4-5.0); Sodium 129 mmol/L (137-145)
[2023-01-20] MEDS: SODIUM CHLORIDE 0.9% IV 1,000 ML 999 ML IV CONT (18:59)
--- NOTE | 2023-01-20 19:41 | PM.IMHP ---
H&P: HPI History of Present Illness Date/Time: 01/20/23 19:41 Chief Complaint: Seizure Narrative: This is a 47-year-old female with past medical history significant for alcohol dependence, tobacco dependence, patient drinks 12-18 beers daily she presents to the emergency room her last drink was 3 days prior had a seizure or episode with blunt trauma to ribcage and head patient presents with bruise on her face and tremors. Patient had been in her usual state of health up to up until this moment, denies any fevers, chills cough no nausea no vomiting no diarrhea no abdominal pain no cough no sputum production. Preliminary workup was significant for a sodium of 129. Patient is been admitted for further evaluation management and treatment. EXAMINATION: CT brain wo con DATE: 01/20/2023 17:49 INDICATION: Seizure. TECHNIQUE: Computed tomography (CT) of the head was performed without intravenous contrast. The mA was adjusted according to patient size. Iterative reconstruction technique was employed. The dose-length product was 681.00 mGy-cm. COMPARISON: Head CT 11/26/2022 FINDINGS: There is no intracranial hemorrhage, acute infarction, or abnormal intracranial mass lesion. The ventricles are normal in size. There is mild mucosal thickening in the paranasal sinuses. The mastoid air cells are normal. The orbits are normal. There is right frontal scalp soft tissue swelling. IMPRESSION: 1. Normal brain. EXAMINATION: XR ribs RT 2V DATE: 01/20/2023 17:55 INDICATION: Right rib pain. Fall. TECHNIQUE: 2 views of the right ribs on 3 radiographs were obtained. COMPARISON: None. FINDINGS: There is no right-sided pneumonia, pleural effusion, or pneumothorax. The heart size is normal. IMPRESSION: 1. No rib fracture. Review of Systems Review of Systems: tremors, seizures, rib cage pain, bruises. Constitutional: Constitutional: Denies chills, Denies fatigue, Denies fever(s), Denies malaise and Denies poor appetite Eyes: Eyes: Denies change in vision ENT: Denies dysphagia, Denies vertigo, Denies dizziness and Denies odynophagia Cardiovascular: Cardiovascular: Denies chest pain, Denies radiating jaw, neck or arm pain and Denies palpitations Respiratory: Respiratory: Denies cough, Denies excessive phlegm production and Denies dyspnea Gastrointestinal: Gastrointestinal: Denies abdominal pain, Denies dyspepsia, Denies heartburn, Denies diarrhea, Denies nausea and Denies vomiting Genitourinary: Genitourinary: Denies dysuria Musculoskeletal: Musculoskeletal: Reports arthralgias (Ribcage) Integumentary/Breasts: Skin/Breast: Denies rash Neurologic: Denies focal weakness, Reports seizure-like activity, Denies Sensory deficit (Neuro) and Reports tremor(s) Psychiatric: Psychiatric: Reports no additional psychiatric complaints and Reports as per HPI Endocrine: Endocrine: Denies cold intolerance, Denies fatigue, Denies flushing, Denies heat intolerance, Denies polyphagia, Denies polydipsia and Denies palpitations Hematologic/Lymphatic: Hematologic/Lymphatic: Reports no additional hematologic/lymphatic complaints and Reports as per HPI Allergic/Immunologic: Allergic/Immunologic: Reports no additional allergic/immunologic complaints and Reports as per HPI PMFSH Past Medical History Medical History Alcohol abuse Anxiety Asthma Coffee ground emesis Depression History of seizure due to alcohol withdrawal Suicide attempt (09/2019) Intentional overdose alcohol, Wellbutrin, Ativan. Surgical History Surgical History History of breast augmentation History of tonsillectomy Family History Family History Other Family history of pancreatic cancer Grandparent Acute myocardial infarction Congestive heart failure Diabetes mellitus Hypertension Mother Cerebrovascular a
--- NOTE | 2023-01-20 21:33 | ED.SEIZURE ---
HPI - Seizure General Chief Complaint: Seizure Stated Complaint: seizure/head injury Time Seen by Provider: 01/20/23 17:04 Source: patient Limitations: no limitations History of Present Illness HPI Narrative: Patient presents with a head injury after a suspected seizure. She had been sober for 7 years then resumed drinking 12-18 beers/ day trying to detox by herself. She has a history of withdrawals but denies ever having a complicated withdrawal involving seizures. She has been tremulous. Last drink 3 days ago. She was seated on the couch the last thing she knew and awoke on the floor having lost consciousness. She is having pain throughout her face and RUQ/right lower chest pain. She has been in inpatient and outpatient programs for alcohol before. Seizure History: Yes (from prior detox) Related Data Home Medications Medication Instructions Recorded Confirmed albuterol sulfate 90 mcg/actuation 2 puff inhalation Q6H PRN 09/29/19 01/21/23 aerosol inhaler Shortness Of Breath fluoxetine 20 mg tablet 20 mg PO DAILY 11/27/22 01/21/23 quetiapine 25 mg tablet (Seroquel) 200 mg PO HS 11/27/22 01/21/23 Allergies Allergy/AdvReac Type Severity Reaction Status Date / Time morphine Allergy Itching Verified 01/20/23 20:41 [facility] Past Medical History Medical History Alcohol abuse Anxiety Asthma Coffee ground emesis Depression History of seizure due to alcohol withdrawal Suicide attempt (09/2019) Intentional overdose alcohol, Wellbutrin, Ativan. Surgical History Surgical History History of breast augmentation History of tonsillectomy Family History Family History Other Family history of pancreatic cancer Grandparent Acute myocardial infarction Congestive heart failure Diabetes mellitus Hypertension Mother Cerebrovascular accident Social History Social History Social History: Surrogate medical decision maker: Brady Bonillajesica, brother. Code status: Full code. Smoking packs per day: 0.5 Smoking cigarettes per day: 10.0 Years smoked: 10 Smoking pack-years: 5.00 Smoking status: Former smoker Tobacco type: cigarettes Second hand tobacco smoke exposure: Yes Smoking end date: 03/15/11 Alcohol intake: current Drinks per week: 84 Alcohol use details: Ten beers a day. Substance use: never Substance use type: prescription drug Lack of Transportation: No Lack of Food: Never True Current Housing: I Have Housing Concerned About Future Housing: No Difficulty Paying Gas/Electric Bills: No Difficulty Paying for Meds: No Currently Unemployed: No Education: Never Attended/Kindergarten Only Difficulty w/ Childcare or Family Care: No Spiritual care concerns: No Exam Const: General: no acute distress, alert and ill appearing acutely; No diaphoretic Orientation/consciousness: patient oriented x3 and No confusion Limitations: no limitations HENMT: Other: ecchymosis on nose, right mormonism, left cheek; no septal hematoma; no tongue fasciculations Eyes: Conjunctivae: conjunctivae normal Direct Ophthalmoscopy: no photophobia Chest: Other: TTP along R lateral chest Resp: Effort & Inspection: normal respiratory effort, not labored, no retractions, not tachypneic and no use of accessory muscles Cardio: Rate: tachycardic GI: Inspection: non-distended GI Palp: Yes Soft to palpation and Yes Tenderness to palpation present (GI) (to palpation along RUQ) Skin: Other: ecchymosis as above Neuro: General: patient oriented x3, moves all extremities and no meningeal signs Speech: normal speech Other: mild tremor felt Extrem: General: normal to inspection Psych: Appearance: grossly normal Affect: normal affect and Anxious affect present Attitude: c
[2023-01-20 21:41] LABS: Amphetamine Screen Urine Negative (Negative); Barbiturate Screen Urine Positive (Negative); Benzodiazepines Screen Urine Negative (Negative); Cannabinoid Screen Urine Negative (Negative); Cocaine Screen Urine Negative (Negative); Methadone Screen Urine Negative (Negative); Opiate Screen Urine Negative (Negative); Phencyclidine Screen Urine Negative (Negative)
[2023-01-21] VITALS (20 sets, daily range): BP systolic 96–117; BP diastolic 62–80; PULSE 77–102; RESP 11–20; TEMP 36.1–36.6; O2SAT 95–100; BMI 21.1
[2023-01-21 00:34] LABS: Glucose Point of Care 100 mg/dl (65-105)
--- NOTE | 2023-01-21 00:42 | PC.NURSE ---
Pt c/o increased pain to R rib. Dr Alba notified about increase in pain and pts low BP readings. New orders placed.
[2023-01-21] MEDS: ACETAMINOPHEN 500 MG TABLET 1000 MG PO ×2 (00:47→09:03)
[2023-01-21] MEDS: SODIUM CHLORIDE 0.9% IV 1,000 ML 999 ML IV CONT (00:47)
[2023-01-21] MEDS: LORazepam INJ (*CRX) 2 MG/ML VIAL IV PUSH ×4 (00:48→20:16)
--- NOTE | 2023-01-21 01:27 | ADMGEN ---
This patient, Micaela Worthy, was admitted to IMU Room 214-01. Patient/family oriented to hospital policies and general routines including ID bracelet, bed and alarms, visiting hours, pain management, procedures, bathroom and other care routines, personal items, smoking policy, room service/diet, and visiting hours. Information on how to activate the Rapid Response Team has been discussed. Patient/Family are encouraged to report perceived risks to care and to ask questions if they do not understand what they are told or what they should do.
[2023-01-21] MEDS: chlordiazePOXIDE (*CRX) 25 MG CAPSULE PO ×2 (09:03→11:49)
--- NOTE | 2023-01-21 09:12 | PM.IMPN ---
Progress Note: A&P Assessment and Plan (1) Alcohol dependence: Code(s): F10.20 - Alcohol dependence, uncomplicated Status: Acute (2) Hyponatremia: Code(s): E87.1 - Hypo-osmolality and hyponatremia Status: Acute (3) Alcohol withdrawal syndrome: Code(s): F10.939 - Alcohol use, unspecified with withdrawal, unspecified Status: Acute (4) Seizure: Code(s): R56.9 - Unspecified convulsions Status: Acute (5) Hypotension: Code(s): I95.9 - Hypotension, unspecified Status: Acute (6) Alcohol abuse: Code(s): F10.10 - Alcohol abuse, uncomplicated Status: Acute Plan (1) Alcohol withdrawal: ?Qualifiers: ?Complication of substance-induced condition:?uncomplicated? Qualified Code(s):?F10.930 - Alcohol use, unspecified with withdrawal, uncomplicated ?Code(s): F10.939 - Alcohol use, unspecified with withdrawal, unspecified ?Status:?Acute ?Assessment and Plan: Admit to IMU [facility] protocol ongoing Supportive care Patient still has anxiety, tachypnea, tachycardia, changed to Librium 25 mg q.6 hours scheduled. (2) Alcohol dependence: ?Code(s): F10.20 - Alcohol dependence, uncomplicated ?Status:?Acute ?Assessment and Plan: Referral for 12 step program in the outpatient setting (3) Tobacco dependence: ?Code(s): F17.200 - Nicotine dependence, unspecified, uncomplicated ?Status:?Acute ?Assessment and Plan: Nicotine patch as needed Consult about tobacco cessation (4) Seizure: ?Code(s): R56.9 - Unspecified convulsions ?Status:?Acute ?Assessment and Plan: Likely secondary to alcohol withdrawal Seizure precautions ongoing Hyponatremia Replete with normal saline IV Subjective Date/time seen: 01/21/23 09:12 Interval history: I saw exam patient, patient still had anxiety, denies visual hallucination, nausea vomiting. Patient has hand tremor bilaterally Exam Narrative: GENERAL: Anxiety in no acute distress. Well-nourished. - EYES: EOMI. Anicteric. - HENT: Moist mucous membranes. - LUNGS: Clear to auscultation bilaterally, no wheezing, rhonchi, or rales. Tachypnea - CARDIOVASCULAR: Regular rate and rhythm. No murmur. No JVD. - ABDOMEN: Soft, non-tender and non-distended. No palpable masses. - EXTREMITIES: No edema. Peripheral pulses 2+. Non-tender. - NEUROLOGIC: Hand tremor bilaterally, no focal neurological deficits. CN II-XII grossly intact. - PSYCHIATRIC: Awake, Alert and oriented x 3. Appropriate mood and affect. - SKIN: No rashes or lesions. Warm. - LYMPH: No cervical lymphadenopathy. Objective Data Vital Signs Vital Signs: Vital Signs - 24 hr 01/20/23 16:53 01/20/23 17:03 01/20/23 17:16 Temperature 98 F Pulse Rate 126 H 118 H 119 H Respiratory Rate 16 20 23 H Blood Pressure 133/97 H 138/99 H 125/96 H Pulse Oximetry 96 97 97 Oxygen Delivery 01/20/23 17:31 01/20/23 19:19 01/20/23 20:29 Temperature Pulse Rate 100 87 89 Respiratory Rate 17 11 L 12 Blood Pressure 129/83 113/78 104/71 Pulse Oximetry 100 99 97 Oxygen Delivery 01/20/23 21:31 01/20/23 22:47 01/20/23 23:58 Temperature Pulse Rate 81 77 80 Respiratory Rate 13 10 L 10 L Blood Pressure 100/71 93/74 L 102/90 Pulse Oximetry 96 95 99 Oxygen Delivery 01/21/23 00:43 01/21/23 01:15 01/21/23 01:32 Temperature 97.0 F L Pulse Rate 77 84 78 Respiratory Rate 11 L 11 L 18 Blood Pressure 96/68 L 96/75 L 99/74 L Pulse Oximetry 95 97 Oxygen Delivery 01/21/23 03:58 01/21/23 02:00 01/21/23 04:00 Temperature 97.5 F L Pulse Rate 77 77 Respiratory Rate 18 Blood Pressure 112/78 112/78 Pulse Oximetry 100 Oxygen Delivery 01/21/23 04:00 01/21/23 04:00 01/21/23 06:00 Temperature Pulse Rate 77 77 87 Respiratory Rate 18 Blood Pressure Pulse Oximetry 100 Oxygen Delivery Room Air 01/21/23 08:40 Temperature 97.9 F Pulse Rate 77 Respiratory Rate
[2023-01-21 10:01] LABS: Basophils Absolute Auto 0.1 K/mm3 (0.0-0.1); Basophils Percent Auto 1.1 % (0.2-1.2); Eosinophils Absolute Auto 0.3 K/mm3 (0-0.3); Eosinophils Percent Auto 4.4 % (0-4.4); Hematocrit 33.3 % (37.0-47.0); Hemoglobin 10.9 g/dL (12.0-15.0); Immature Granulocyte Absolute 0.01 K/mm3 (0.00-0.031); Immature Granulocyte Percent A 0.2 % (0-0.5); Lymphocytes Absolute Auto 2.36 K/mm3 (0.9-3.2); Lymphocytes Percent Auto 41.4 % (18.3-44.2); Mean Corpuscular HGB Conc 32.7 g/dl (32-36); Mean Corpuscular Volume 100.9 fl (80-100); Mean Platelet Volume 8.1 fl (7.4-10.4); Monocytes Absolute Auto 0.4 K/mm3 (0.1-0.6); Monocytes Percent Auto 7.7 % (2.6-8.5); Neutrophils Absolute Auto 2.6 K/mm3 (1.3-6.7); Neutrophils Percent Auto 45.2 % (45.5-73.1); Platelet Count Result 333 k/mm3 (150-375); Red Cell Distribution Width 13.8 % (11.5-14.5); White Blood Count 5.7 K/mm3 (4.5-10.0)
[2023-01-21 10:11] LABS: Anion Gap 2 mmol/L (8-16); Blood Urea Nitrogen 7 mg/dL (7-17); Calcium 8.1 mg/dL (8.4-10.2); Carbon Dioxide 26 mmol/L (22-30); Chloride 108 mmol/L (98-107); Estimated CRCL calculation 94 ml/min; Estimated Glomerular Filt Rate > 60; Glucose 92 mg/dL (65-110); Magnesium 2.4 mg/dL (1.6-2.3); Phosphorus 3.1 mg/dL (2.5-4.5); Potassium 3.6 mmol/L (3.4-5.0); Sodium 136 mmol/L (137-145)
[2023-01-21] MEDS: HYDROcodone/acetaminophen (*CRX) 5-325 MG TABLET 1 TAB PO ×2 (11:49→18:20)
[2023-01-21 12:16] LABS: Glucose Point of Care 126 mg/dl (65-105)
[2023-01-21 18:09] LABS: Glucose Point of Care 105 mg/dl (65-105)
[2023-01-21] MEDS: chlordiazePOXIDE (*CRX) 25 MG CAPSULE 50 MG PO (18:21)
[2023-01-21 20:48] LABS: Glucose Point of Care 214 mg/dl (65-105)
[2023-01-22] VITALS (11 sets, daily range): BP systolic 100–104; BP diastolic 56–75; PULSE 77–100; RESP 18–20; TEMP 36–36.7; O2SAT 95–100
[2023-01-22] MEDS: HYDROcodone/acetaminophen (*CRX) 5-325 MG TABLET 1 TAB PO ×4 (01:33→11:59)
[2023-01-22] MEDS: chlordiazePOXIDE (*CRX) 25 MG CAPSULE 50 MG PO ×2 (01:33→05:28)
[2023-01-22 09:15] LABS: Basophils Absolute Auto 0.1 K/mm3 (0.0-0.1); Basophils Percent Auto 0.8 % (0.2-1.2); Eosinophils Absolute Auto 0.2 K/mm3 (0-0.3); Eosinophils Percent Auto 3.8 % (0-4.4); Hematocrit 33.5 % (37.0-47.0); Hemoglobin 11.1 g/dL (12.0-15.0); Immature Granulocyte Absolute 0.06 K/mm3 (0.00-0.031); Immature Granulocyte Percent A 0.9 % (0-0.5); Lymphocytes Absolute Auto 2.37 K/mm3 (0.9-3.2); Lymphocytes Percent Auto 37.3 % (18.3-44.2); Mean Corpuscular HGB Conc 33.1 g/dl (32-36); Mean Corpuscular Hemoglobin 33.3 pg (26-34); Mean Corpuscular Volume 100.6 fl (80-100); Mean Platelet Volume 8.4 fl (7.4-10.4); Monocytes Absolute Auto 0.6 K/mm3 (0.1-0.6); Monocytes Percent Auto 9.6 % (2.6-8.5); Neutrophils Percent Auto 47.6 % (45.5-73.1); Platelet Count Result 341 k/mm3 (150-375); Red Blood Count 3.33 M/mm3 (4.2-5.4); Red Cell Distribution Width 13.5 % (11.5-14.5); White Blood Count 6.4 K/mm3 (4.5-10.0)
[2023-01-22 09:24] LABS: Anion Gap 5 mmol/L (8-16); Blood Urea Nitrogen 3 mg/dL (7-17); Calcium 8.3 mg/dL (8.4-10.2); Carbon Dioxide 24 mmol/L (22-30); Chloride 108 mmol/L (98-107); Estimated CRCL calculation 111 ml/min; Estimated Glomerular Filt Rate > 60; Glucose 78 mg/dL (65-110); Magnesium 2.1 mg/dL (1.6-2.3); Phosphorus 3.4 mg/dL (2.5-4.5); Potassium 3.6 mmol/L (3.4-5.0); Sodium 137 mmol/L (137-145)
--- NOTE | 2023-01-22 10:15 | PM.IMPN ---
Progress Note: A&P Assessment and Plan (1) Alcohol dependence: Code(s): F10.20 - Alcohol dependence, uncomplicated Status: Acute (2) Hyponatremia: Code(s): E87.1 - Hypo-osmolality and hyponatremia Status: Acute (3) Alcohol withdrawal syndrome: Code(s): F10.939 - Alcohol use, unspecified with withdrawal, unspecified Status: Acute (4) Seizure: Code(s): R56.9 - Unspecified convulsions Status: Acute (5) Hypotension: Code(s): I95.9 - Hypotension, unspecified Status: Acute (6) Alcohol abuse: Code(s): F10.10 - Alcohol abuse, uncomplicated Status: Acute Plan (1) Alcohol withdrawal: ?Qualifiers: ?Complication of substance-induced condition:?uncomplicated? Qualified Code(s):?F10.930 - Alcohol use, unspecified with withdrawal, uncomplicated ?Code(s): F10.939 - Alcohol use, unspecified with withdrawal, unspecified ?Status:?Acute ?Assessment and Plan: Admit to IMU [facility] protocol ongoing Supportive care Patienthad anxiety, tachypnea, tachycardia, increased Librium 50 mg q.6 hours scheduled. Continued Ativan IV p.r.n. per [facility] protocol now no obvious s/s of alcohol withdrawal, patient is off IV benzodiazepine. And took 1 does of librium a a.m. (2) Alcohol dependence: ?Code(s): F10.20 - Alcohol dependence, uncomplicated ?Status:?Acute ?Assessment and Plan: Referral for 12 step program in the outpatient setting, pt has declined (3) Tobacco dependence: ?Code(s): F17.200 - Nicotine dependence, unspecified, uncomplicated ?Status:?Acute ?Assessment and Plan: Nicotine patch as needed Consult about tobacco cessation (4) Seizure: ?Code(s): R56.9 - Unspecified convulsions ?Status:?Acute ?Assessment and Plan: Likely secondary to alcohol withdrawal Seizure precautions ongoing no seizure during hospitalization Hyponatremia Replete with normal saline IV Electrolyte abnormality are corrected Subjective Date/time seen: 01/22/23 10:15 Interval history: I saw exam patient. patient feels comfortable, patient denies headache, anxiety, denies visual hallucination, nausea vomiting. Hand tremor resolved Exam Narrative: GENERAL: Anxiety in no acute distress. Well-nourished. - EYES: EOMI. Anicteric. - HENT: Moist mucous membranes. - LUNGS: Clear to auscultation bilaterally, no wheezing, rhonchi, or rales. Tachypnea - CARDIOVASCULAR: Regular rate and rhythm. No murmur. No JVD. - ABDOMEN: Soft, non-tender and non-distended. No palpable masses. - EXTREMITIES: No edema. Peripheral pulses 2+. Non-tender. - NEUROLOGIC: no focal neurological deficits. CN II-XII grossly intact. - PSYCHIATRIC: Awake, Alert and oriented x 3. Appropriate mood and affect. - SKIN: No rashes or lesions. Warm. - LYMPH: No cervical lymphadenopathy. Objective Data Vital Signs Vital Signs: Vital Signs - 24 hr 01/21/23 11:31 01/21/23 12:00 01/21/23 12:00 Temperature 97.9 F Pulse Rate 81 84 Respiratory Rate 18 Blood Pressure 117/80 Pulse Oximetry 99 Oxygen Delivery Room Air 01/21/23 14:00 01/21/23 16:18 01/21/23 16:00 Temperature 97.3 F L Pulse Rate 94 84 83 Respiratory Rate 20 Blood Pressure 100/68 Pulse Oximetry 96 Oxygen Delivery 01/21/23 18:00 01/21/23 16:00 01/21/23 19:43 Temperature 96.9 F L Pulse Rate 88 77 Respiratory Rate 20 Blood Pressure 100/74 Pulse Oximetry 96 Oxygen Delivery Room Air 01/21/23 20:00 01/21/23 20:00 01/21/23 22:00 Temperature Pulse Rate 92 97 Respiratory Rate Blood Pressure Pulse Oximetry Oxygen Delivery Room Air 01/21/23 23:17 01/22/23 00:00 01/22/23 00:00 Temperature 97.6 F Pulse Rate 98 90 Respiratory Rate 20 Blood Pressure 100/62 Pulse Oximetry 100 Oxygen Delivery Room Air 01/22/23 01:52 01/22/23 04:00 01/22/23 04:00 Temperature 97.7 F Pulse Rate 88 96 92 Respirator
--- NOTE | 2023-01-22 11:45 | PC.NURSE ---
Spoke with Dr. Gustafson regarding pt's request to be discharged. New order to hold 12pm dose of Librium and notified around 1500 of pt's condition. Also to give one time dose of [place] 5/325 PO now for pain
[2023-01-22] MEDS: ACETAMINOPHEN 500 MG TABLET 1000 MG PO (14:28)
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
== END 2023-01-22 15:00 | disposition home or self-care (01) ==
LOC: ANHED 21:34 → ANHIMU 01-21 01:17
PROVIDERS: Admitting Provider Internal Medicine; Emergency Provider Student in an Organized Health Care Education/Training Program; PCP Student in an Organized Health Care Education/Training Program; Visit Provider Hospitalist
DX: F10.239 Alcohol dependence with withdrawal, unspecified (principal); Y90.0 Blood alcohol level of less than 20 mg/100 ml; R56.9 Unspecified convulsions; I95.9 Hypotension, unspecified; E87.1 Hypo-osmolality and hyponatremia; F41.9 Anxiety disorder, unspecified; F32.A Depression, unspecified; J45.909 Unspecified asthma, uncomplicated; R94.5 Abnormal results of liver function studies; Z87.891 Personal history of nicotine dependence; Z91.51 Personal history of suicidal behavior; Z79.51 Long term (current) use of inhaled steroids; Z79.899 Other long term (current) drug therapy
CPT/HCPCS: 36415; 70450; 71100; 80048; 80053; 80307; 81025; 82948; 83735; 84100; 85025; 96361; 96365; 96366; 96367; 96376; 99285; A9270; G0378; J2060; J2560; J3411; J3475; J7030

== ENCOUNTER 2023-04-22 10:38 | Emergency (ER) | payer OTHER, BC, SELFPAY ==
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
[2023-04-22 10:38] VITALS: BP 141/97; PULSE 129; RESP 25; TEMP 36.8; O2SAT 94
--- NOTE | 2023-04-22 10:52 | ECG_ITS ---
Measurements Intervals [place] Rate: 107 P: 75 [place]: 165 QRS: 38 QRSD: 96 T: 68 QT: 331 QTc: 443 Interpretive Statements SINUS TACHYCARDIA POSSIBLE LEFT ATRIAL ENLARGEMENT [-0.1mV P-WAVE IN V1/V2] POSSIBLE RIGHT VENTRICULAR CONDUCTION DELAY [RSR (QR) IN V1/V2] ABNORMAL RHYTHM ECG COMPARED TO ECG 01/04/2023 09:59:32 SINUS TACHYCARDIA NOW PRESENT Electronically Signed On 04-22-2023 15:01:42 [employer]ILL WORKER by Jimbo Caban M.D.
--- NOTE | 2023-04-22 11:17 | PC.NURSE ---
This RN spoke with Dr. Mills and confirmed it was ok for pt to receive IV morphine. Pt received morphine via EMS prior to arrival and did not have any reaction. Pt states it makes her itch but it was an old reaction .
[2023-04-22] MEDS: MORPHINE SULFATE (*CRX) 2 MG/ML INJ IV PUSH ×2 (11:26→12:55)
[2023-04-22] MEDS: SODIUM CHLORIDE 0.9% IV 1,000 ML 999 ML IV CONT (11:27)
[2023-04-22 11:32] LABS: Basophils Absolute Auto 0.1 K/mm3 (0.0-0.1); Basophils Percent Auto 0.6 % (0.2-1.2); Eosinophils Absolute Auto 0.1 K/mm3 (0-0.3); Eosinophils Percent Auto 0.9 % (0-4.4); Hematocrit 38.9 % (37.0-47.0); Hemoglobin 13.4 g/dL (12.0-15.0); Immature Granulocyte Absolute 0.15 K/mm3 (0.00-0.031); Immature Granulocyte Percent A 1.5 % (0-0.5); Lymphocytes Absolute Auto 1.69 K/mm3 (0.9-3.2); Lymphocytes Percent Auto 16.9 % (18.3-44.2); Mean Corpuscular HGB Conc 34.4 g/dl (32-36); Mean Corpuscular Hemoglobin 31.5 pg (26-34); Mean Corpuscular Volume 91.3 fl (80-100); Mean Platelet Volume 8.8 fl (7.4-10.4); Monocytes Absolute Auto 0.7 K/mm3 (0.1-0.6); Monocytes Percent Auto 7.4 % (2.6-8.5); Neutrophils Absolute Auto 7.3 K/mm3 (1.3-6.7); Neutrophils Percent Auto 72.7 % (45.5-73.1); Platelet Count Result 439 k/mm3 (150-375); Red Blood Count 4.26 M/mm3 (4.2-5.4); Red Cell Distribution Width 13.5 % (11.5-14.5)
[2023-04-22 11:46] LABS: Lactic Acid Reflex 4.2 mmol/L (0.7-2.0)
[2023-04-22 11:47] LABS: Albumin Level 4.5 g/dL (3.5-5.1); Alkaline Phosphatase 87 U/L (38-126); Anion Gap 12 mmol/L (8-16); Aspartate Amino Transferase 46 U/L (14-36); Bilirubin,Total 0.7 mg/dL (0.2-1.3); Blood Urea Nitrogen 12 mg/dL (7-17); Calcium 9.2 mg/dL (8.4-10.2); Carbon Dioxide 25 mmol/L (22-30); Chloride 95 mmol/L (98-107); Estimated CRCL calculation 78 ml/min; Estimated Glomerular Filt Rate > 60; Glucose 136 mg/dL (65-110); Magnesium 2.4 mg/dL (1.6-2.3); Potassium 3.6 mmol/L (3.4-5.0); Sodium 132 mmol/L (137-145)
[2023-04-22] MEDS: KETOROLAC 15 MG/ML VIAL (*BKC) IV PUSH (11:58)
[2023-04-22 12:14] LABS: SPREG INTERNAL CONTROL Positive; Serum Qual hCG Negative
[2023-04-22 12:29] LABS: Alanine Aminotransferase 29 U/L (6-35)
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
[2023-04-22 12:47] LABS: Creatine Kinase 94 U/L (30-135)
[2023-04-22 13:30] VITALS: BP 124/94; PULSE 97; RESP 15; O2SAT 97
[2023-04-22 14:27] LABS: Reflex Lactic Acid Yes or No Add Lactic
== END 2023-04-22 13:32 | disposition short-term general hospital (02) ==
PROVIDERS: Emergency Provider Emergency Medicine; PCP Student in an Organized Health Care Education/Training Program
DX: S32.011A Stable burst fracture of first lumbar vertebra, initial encounter for closed fracture (principal); S32.018A Other fracture of first lumbar vertebra, initial encounter for closed fracture; S22.080A Wedge compression fracture of T11-T12 vertebra, initial encounter for closed fracture; R56.9 Unspecified convulsions; J45.909 Unspecified asthma, uncomplicated; F41.9 Anxiety disorder, unspecified; F32.A Depression, unspecified; Z87.891 Personal history of nicotine dependence; R00.0 Tachycardia, unspecified; R94.31 Abnormal electrocardiogram [ECG] [EKG]; M47.812 Spondylosis without myelopathy or radiculopathy, cervical region; V47.5XXA Car driver injured in collision with fixed or stationary object in traffic accident, initial encounter
CPT/HCPCS: 36415; 70450; 72125; 72128; 72131; 80053; 82550; 83605; 83735; 84703; 85025; 93005; 96361; 96374; 96375; 96376; 99285; J1885; J2270; J7030; L0140